=== PATIENT | female | born 1960 | race Caucasian/White ===

== ENCOUNTER → 2020-08-12 12:53 | Outpatient (CLI) | payer BC, SELFPAY ==
--- NOTE | ~2020-08-12 | DEXA_ITS ---
Bone Density Report Name: Oly Patiño Age: 59 Sex: Female Ethnicity: White Date of : 1960 Indication: postmenopausal; screening for osteoporosis; height loss; hysterectomy; Referring Provider: KIANA, AKSHAT Study: Bone densitometry was performed. Exam Date: August 12, 2020 Accession number: [id number] Bone Density: Region BMD T-score Z-score Classification Femoral Neck (Left) 0.543 -2.8 -1.5 Osteoporosis Total Hip (Left) 0.683 -2.1 -1.2 Osteopenia Femoral Neck (Right) 0.535 -2.8 -1.6 Osteoporosis Total Hip (Right) 0.680 -2.1 -1.3 Osteopenia Total Hip Mean 0.682 -2.1 -1.3 Osteopenia World Health Organization criteria for BMD impression classify patients as: Normal (T-score at or above -1.0), Osteopenia (T-score between -1.0 and -2.5), or Osteoporosis (T-score at or below -2.5). 10-year Fracture Risk: FRAX not reported because: Some T-score for Spine Total or Hip Total or Femoral Neck at or below -2.5 Clinical Information Provided by Patient: Smokes Has used the following medications: Vitamin D, Calcium, Levothyroxin Has the following medical conditions: Hysterectomy Patient maximum height was 64 Menopause Age: 36 Does not regularly consume dairy products Drinks caffeinated beverages Onset of menses at age 14 Number of children 2 Impression: The patient has osteoporosis, based on the Left Femoral Neck T-score. The patient has risk factors, including: smoking. Discussion: INCREASED RISK OF FRACTURE. BONE DENSITY IS UNDESIRABLY LOW AT ONE OR MORE SKELETAL SITES, CONSISTENT WITH POSTMENOPAUSAL OSTEOPOROSIS. This patient's lowest T-score meets the World Health Organization's (WHO) criteria for osteoporosis at one or more sites (T-score -2.5 or below). In untreated patients, the risk of osteoporotic fracture increases approximately two-fold for each 1.0 SD decrease in T-score. Low bone density is not the only risk factor for fracture; also consider factors such as patient's age, frailty or poor health, risk of falling, risk of injury, previous osteoporotic fracture, family history of osteoporosis, cigarette smoking, low body weight, etc. Not everyone with low bone mineral density has osteoporosis; osteomalacia and other metabolic bone disorders should also be considered. Patients who have osteoporosis should be evaluated for specific diseases and conditions (secondary causes) that may cause or contribute to bone loss. The [place] Association of Clinical Endocrinologists (AACE) and National Osteoporosis Foundation (NOF) recommend pharmacologic intervention for all postmenopausal women whose T-score is in this range. The patient should follow a healthful lifestyle (good nutrition with adequate calcium and vitamin D, and appropriate weight-bearing exercise). Follow-Up: Consider a repeat BMD and Vertebral Fracture
--- NOTE | ~2020-08-12 | MM_ITS ---
EXAMINATION: MM scrn jean claude implant BI w cortes HISTORY: Screening mammogram TECHNIQUE: Craniocaudal and mediolateral oblique 3-D tomosynthesis images with implant displacement a nd synthetic 2-D images were generated. Craniocaudal and mediolateral oblique views of the breasts wi thout implant displacement were obtained using full field digital mammography. CAD analysis was submi tted and interpreted. COMPARISON: Comparison to multiple prior studies sequentially, with oldest reviewed study dated 08/31. BREAST PARENCHYMAL COMPOSITION: There are scattered areas of fibroglandular density. FINDINGS: There are subpectoral saline implants. There is no evidence of suspicious mass, calcificati on, or architectural distortion to suggest malignancy in either breast. There has been no suspicious interval change. IMPRESSION: 1. No mammographic evidence of malignancy. 2. Recommend routine screening mammography in one year. BI-RADS Category 1: Negative Reviewed, dictated and finalized at location A.
== END ==
PROVIDERS: PCP Nurse Practitioner Family; Visit Provider Nurse Practitioner Family
DX: Z12.31 Encounter for screening mammogram for malignant neoplasm of breast (principal); Z78.0 Asymptomatic menopausal state; Z13.820 Encounter for screening for osteoporosis
CPT/HCPCS: 77063; 77067; 77080

== ENCOUNTER 2021-07-12 12:55 | Outpatient (CLI) | payer BC, SELFPAY ==
--- NOTE | ~2021-07-12 | CT_ITS ---
EXAMINATION: CT thoracic lumbar wo con EXAM DATE: 07/12/2021 13:23 . INDICATION: Failed back surgical syndrome, deformity, lbp, ankylosis TECHNIQUE: Spiral CT thoracolumbar spine was performed without contrast. Axial, coronal and sagittal images of the thoracic spine were reviewed. Axial, coronal and sagittal images of the lumbar spine we re reviewed. The dose-length product (DLP) for this examination was 475.81 mGy-cm. The exposure was tailored according to patient size (auto mA exposure control), and iterative reconstruction (ASIR) wa s used as additional dose reduction technique. Compared to prior study 08/11/1960 FINDINGS: Hardware: Patient has posterior fusion hardware with pedicular screws extending from T11 th rough the sacrum. There is interbody fusion L4-5 and L5-S1. No hardware fracture. Mild lucency surrou nding the sacroiliac joint screws. This could indicate some component of loosening but it is unchange d compared to 2016. No lucency surrounding any of the other screws. THORACIC SPINE: Severe disc disease T10-11, mild interval progression. There is kyphosis at the 10-1 1 level, with mild chronic anterior wedged appearance to the vertebral bodies/endplates of this disc space. Mild disc disease T8-T10 levels. There is 2 mm retrolisthesis T9 on T10. Moderate to severe f rom T7 through T11. Probably moderate to severe left neural foraminal stenosis at T8-9 and T9-10. LUMBAR SPINE: The lumbar facet posterior elements are fused. Spinous processes have been resected. Po sterior bone graft material. Metallic artifact limiting some soft tissue details, but no evidence of significant central canal or neural foraminal stenosis. There is no evidence of acute lumbar fracture . There is no disc space widening or traumatic vertebral body subluxation suspected. Paraspinal sof t tissue is unremarkable. Mild lumbar disc disease. IMPRESSION: 1. Intact fusion from T11 through sacroiliac joints. 2. Some chronic lucency along the sacroiliac screws could indicate some component of loosening, appe ars well seated. 3. Advanced T11-12 disc disease with mild anterior wedging of these vertebral bodies causing kyphosi s. 4. Advanced lower thoracic facet arthropathy. Reviewed, dictated and finalized at location B. IMPRESSION: 1. Intact fusion from T11 through sacroiliac joints. 2. Some chronic lucency along the sacroiliac screws could indicate some compon ent of loosening, appears well seated. 3. Advanced T11-12 disc disease with mild anterior wedging of these vertebral bodies causing kyphosis. 4. Advanced lower thoracic facet arthropathy.
== END 2021-07-12 12:56 | disposition home or self-care (01) ==
PROVIDERS: PCP Nurse Practitioner Family; Visit Provider Nurse Practitioner Family
DX: M43.24 Fusion of spine, thoracic region (principal); M54.6 Pain in thoracic spine; Z98.1 Arthrodesis status; M51.84 Other intervertebral disc disorders, thoracic region; M12.88 Other specific arthropathies, not elsewhere classified, other specified site
CPT/HCPCS: 72128; 72131

== ENCOUNTER 2022-12-08 07:48 | Outpatient (CLI) | payer BC, SELFPAY ==
--- NOTE | ~2022-12-08 | MM_ITS ---
EXAMINATION: MM scrn jean claude implant BI w cortes HISTORY: Screening mammogram TECHNIQUE: Craniocaudal and mediolateral oblique 3-D tomosynthesis images with implant displacement a nd synthetic 2-D images were generated. Craniocaudal and mediolateral oblique views of the breasts wi thout implant displacement were obtained using full field digital mammography. CAD analysis was submi tted and interpreted. COMPARISON: 08/12/2020, 05/14/2019, 07/21/2017 bilateral implant screening mammogram examinations BREAST PARENCHYMAL COMPOSITION: There are scattered areas of fibroglandular density. FINDINGS: There is no evidence of suspicious mass, calcification, or architectural distortion to sugg est malignancy in either breast. There has been no suspicious interval change. IMPRESSION: 1. No mammographic evidence of malignancy. 2. Recommend routine screening mammography in one year. BI-RADS Category 1: Negative Reviewed, dictated and finalized at location A. RACTIVE PRODUCER
== END 2022-12-08 07:49 | disposition home or self-care (01) ==
LOC: ANHIMG 07:51
PROVIDERS: PCP Nurse Practitioner Family; Visit Provider Nurse Practitioner Family
DX: Z12.31 Encounter for screening mammogram for malignant neoplasm of breast (principal); Z98.82 Breast implant status
CPT/HCPCS: 77063; 77067

== ENCOUNTER 2023-08-05 09:00 | Outpatient (CLI) | payer BC, SELFPAY ==
--- NOTE | 2023-08-05 10:11 | ECG_ITS ---
Measurements Intervals [place] Rate: 75 P: 60 [place]: 157 QRS: 42 QRSD: 100 T: 46 QT: 369 QTc: 412 Interpretive Statements SINUS RHYTHM NORMAL ECG NO PREVIOUS ECG AVAILABLE FOR COMPARISON Electronically Signed On 08-05-2023 12:31:14 CDT by Jere Jain M.D.
== END 2023-08-05 09:01 | disposition home or self-care (01) ==
LOC: ANHCARD 10:07
PROVIDERS: PCP Nurse Practitioner Family; Visit Provider Anesthesiology
DX: Z01.818 Encounter for other preprocedural examination (principal)
CPT/HCPCS: 93005

== ENCOUNTER 2023-08-11 05:50 | Day surgery (SDC) | payer OTHER, SELFPAY ==
--- NOTE | 2023-08-10 10:31 | WPDANESEPPF ---
Anes - Initial Pre Proc Eval Procedure: Operation Date: 08/11/23 11:45 Proposed Procedures p Bilateral Breast Implant Exchange with Galaflex - Sandeep Castellanos MD s Bilateral Breast Mastopexy - Sandeep Castellanos MD Date/Time: 08/10/23 10:31 Surgeon: Sandeep Castellanos MD Pre Op Diagnosis: History of Breast Augmentation and Breast Ptosis Patient Data Age: 62 Gender: F Height: 1.57 m Weight: 53.7 kg Allergies Allergy/AdvReac Type Severity Reaction Status Date / Time gluten Allergy Unknown Diarrhea Verified 08/11/23 10:41 KETOROLAC TROMETHAMINE Allergy Intermediate Itching Uncoded 08/11/23 10:41 Home Medications Medication Instructions Recorded Confirmed Type duloxetine 60 mg capsule,delayed 60 mg PO BID 02/27/20 08/11/23 History release (Cymbalta) gabapentin 800 mg tablet 800 mg PO TID 02/27/20 08/11/23 History levothyroxine 175 mcg tablet 175 mcg PO DAILY 02/27/20 08/11/23 History (Synthroid) albuterol sulfate 90 mcg/actuation 1 puff inhalation USEASDIRECTD 07/28/23 08/11/23 History aerosol inhaler baclofen 10 mg tablet 10 mg PO DIRECTED PRN Pain 07/28/23 08/11/23 History bupropion HCl 150 mg tablet,12 hr 150 mg PO DAILY 07/28/23 08/11/23 History sustained-release clonidine HCl 0.2 mg tablet 0.2 mg PO DAILY 07/28/23 08/11/23 History cyanocobalamin (vitamin B-12) 1 tablet PO DAILY 07/28/23 08/11/23 History cyclobenzaprine 10 mg tablet 10 mg PO USEASDIRECTD PRN Pain 07/28/23 08/11/23 History methocarbamol 500 mg tablet 500 mg PO USEASDIRECTD PRN Pain 07/28/23 08/11/23 History prazosin 1 mg capsule 1 mg PO HS Nightmares 07/28/23 08/11/23 History sumatriptan succinate 100 mg tablet 100 mg PO DIRECTED PRN Migraine 07/28/23 08/11/23 History Headache temazepam 30 mg capsule 30 mg PO USEASDIRECTD PRN Insomnia 07/28/23 08/11/23 History tramadol 100 mg tablet 100 mg PO BID PRN Pain 07/28/23 08/11/23 History trazodone 100 mg tablet 100 mg PO USEASDIRECTD PRN Insomnia 07/28/23 08/11/23 History Patient hx anesthesia problems: none Family hx anesthesia problems: none Results Review: All pre-operative results and documents have been reviewed as part of the pre-operative evaluation. [facility] Past Medical History Medical History (Updated 08/10/23 @ 10:31 by Percy Thapa DO) Anxiety Asthma Hypertension Hypothyroidism MVP (mitral valve prolapse) Surgical History Surgical History (Updated 08/10/23 @ 10:31 by Percy Thapa DO) History of History of hysterectomy Family History Family History Mother Hypertension Family history of elevated blood lipids Family history of coronary artery disease Family history of malignant neoplasm Patient's mother is Family history of cardiovascular disease Father Patient's father is Family history of primary malignant neoplasm of liver Sibling Patient's sister is in good health Patient's brother is in good health Grandparent Family history of cardiovascular disease Cerebrovascular accident Social History Social History Smoking status: Former smoker Second hand tobacco smoke exposure: Yes Smoking end date: 10/30/09 Additional smoking assessment comments: quit 9 weeks ago, smoked 1 ppd for 11 years Alcohol intake: never Substance use type: does not use Living arrangements: with family Spiritual care concerns: No Anes - Eval Final PreProcedure Day of Procedure 08/10/23 10:31 Patient weight: normal Heart: regular rate and rhythm Lungs: clear to auscultation Airway: Mallampati scale class II Neurological: alert and oriented Last oral intake: >/= 8 hours ASA classification: III Emergent: no Anesthetic plan: proceed Anesthesia type and monitoring: general ETT and standard monitoring Results Review: All pre-operative results and documents have been reviewed as part of
[2023-08-11] VITALS (12 sets, daily range): BP systolic 102–144; BP diastolic 61–85; PULSE 80–102; RESP 16–19; TEMP 36.6–37; O2SAT 94–100
[2023-08-11] MEDS: SCOPOLAMINE 1.5 MG PATCH 1 MG TRANSDERM (11:03)
[2023-08-11] MEDS: LACTATED RINGERS 1,000 ML 30 ML IV CONT ×2 (11:25→14:57)
--- NOTE | 2023-08-11 11:43 | WPDHPUPDATE1 ---
History and Physical Update Update Date/Time: 08/11/23 11:43 History and Physical has been reviewed, including an updated exam of the patient. There are NO changes in the patient's condition. Risks, benefits, and alternatives have been discussed and questions answered. Patient agrees to proceed with procedure.
--- NOTE | 2023-08-11 11:46 | SUR.PREOP ---
Pt marked by Dr. Castellanos, female staff member present during marking
--- NOTE | 2023-08-11 11:47 | SUR.PREOP ---
500cc fluid bolus given in pre-op per Dr. Castellanos's orders.
--- NOTE | 2023-08-11 11:47 | W.PM.PROC2 ---
Procedure Note - Detailed Date of Procedure 08/11/23 Pre-op Diagnosis History of Breast Augmentation and Breast Ptosis Post-op Diagnosis Same Procedure Performed Bilateral implant exchange with mastopexy Galaflex Surgeon Sandeep Castellanos MD Anesthesia General Findings Superior pedicle Inverted T Previous implants: Bilateral textured saline 375 New Implants: Bilateral Natrelle Saline 350cc filled to 370cc Right - REF# [id number] SN [id number] Left - REF# [id number] SN [id number] Galaflex Ref [id number] Lot [id number] Description of Procedure She is here today for the above. Her left breast implant is ruptured. She states her NAC was fairly symmetric before rupture. We discussed sizing and how she would like to adjust. Previously and again today the risks, benefits, alternatives were discussed in extensive detail. I wanted her to be very realistic about the risks involved as well as expectations. I was very honest that we are moving breast onto the implant and we are not able to elevate the breast footprint. This was outlined extensivly with her and her to make sure she was well informed. We discussed aftercare and what to monitor for. Made sure answered all of her questions to her satisfaction today and consent was obtained. Marked in the preoperative holding area with their verification. The patient was taken to the operating room placed supine on the operating table. Anesthesia was provided by anesthesiology. A surgical time-out was taken. We cleansed the skin and 1% lidocaine and 0.25% Marcaine with epinephrine was used anesthetize as a field block. She was prepped and draped in a standard sterile fashion. Tegaderm nipple Harrell were placed. A 15 blade used to make an incision just superior to the inframammary fold leaving a cusp of de-epithelized tissue at the t junction. Dissection was continued until the previous implant capsule was identified. This was incised and implants removed. Copiously irrigated with 3 Liters of saline solution on TUR tubing. I adjusted capsules with capsulotomy and capsulorraphy as indicated. Next the use a triple antibiotic and Betadine containing solution to irrigate the pocket. I washed my gloves with the triple antibiotic and Betadine solution. We washed the implant immediately upon opening it with this solution and only opened it when we needed it. I used implant funnel and no-touch technique. The implant was introduced into the pocket using the funnel. Having verified positioning of the implant this was closed using 2-0 PDS. I tailor tacked the breast into position. Placed her in a sitting position. Verified the nipple-areolar location based on preoperative planning as well as intraoperative observations and measurements in full agreement. She was placed supine. I de-epithelialized the pedicle. I then removed the inferior central portion of the breast need making sure the implant was well protected. I elevated medial and lateral tissue flaps as well for planned closure. Galaflex was soaking in betadine solution. Trimmed and sutured into place with 2-0 Vicryl. I closed along the IMF with 2-0 Stratafix. Along the vertical with 2-0 PDS. I closed around the areola with 3-0 strata fix. 3-0 Monocryl along the vertical. 3-0 Stratafix along the IMF. I finally closed everything with running subcuticular 4-0 Monocryl and tissue glue. Fluffs and surgical bra were placed. Estimated Blood Loss 150 Drains No Packing No Pathology None sent Complications No immediate complications Condition Stable Disposition PACU
[2023-08-11] MEDS: ceFAZolin SODIUM 2 GM/20 ML SW SYRINGE IV PUSH (11:55)
[2023-08-11] MEDS: TRANEXAMIC ACID 1,000 MG/10 ML AMPUL 1000 MG IV PUSH (11:55)
[2023-08-11] MEDS: LIDO 1%/EPINEPHRINE/PF 1:200,000 30 ML VIAL INFILTRATE (12:04)
[2023-08-11] MEDS: NACL 0.9% IRRIG POUR BOTTLE 900 ML, GENTAMICIN SULFATE INJ 160 MG, ceFAZolin 2 GM, POVI... IRRIGATION (12:34)
--- NOTE | 2023-08-11 15:06 | SUR.PHASEI ---
1440 patient arrived to PACU very restless trying to sit up and legs tucked, anesthesia at bedside giving report and treating patient for pain. small amount of blood noted on left corner of mouth. reported that patient bite down on the oral airway/lip before coming to PACU. small amount of drainage noted on left breast and circled, will continue to monitor. vss
[2023-08-11] MEDS: fentaNYL CITRATE INJ (*CRX) 100 MCG/2 ML VIAL 25 MCG IV PUSH ×4 (15:21→15:43)
[2023-08-11] MEDS: oxyCODONE HCL (*CRX) 5 MG TAB IR PO (16:04)
--- NOTE | 2023-08-11 16:36 | WPDANESPN ---
Anes - Prog Note Post-Op Date/Time: 08/11/23 16:36 Cardiovascular status: normal Respiratory status: normal Airway patency: baseline Mental status: baseline Post-Op hydration status: normal Vital Signs: Last Vital Signs Temp 37.0 C 08/11/23 15:50 Pulse 91 08/11/23 16:20 Resp 16 08/11/23 16:20 BP 144/70 H 08/11/23 16:20 Pulse Ox 96 08/11/23 16:20 O2 Del Method Room Air 08/11/23 16:20 O2 Flow Rate 6 08/11/23 15:00 Pain Score (VAS): 2 I/O: Intake & Output 08/11/23 08/11/23 08/11/23 07:59 15:59 23:59 Intake Total 1400 Balance 1400 Post-procedural complaints: none Patient Feedback: Patient satisfied with anesthetic care. Other Findings: Patient vital signs back to baseline. Patient denies nausea and vomiting. Patient's pain under control. Patient OK for discharge.
== END 2023-08-11 16:30 | disposition home or self-care (01) ==
PROVIDERS: PCP Nurse Practitioner Family; Visit Provider Surgery Plastic and Reconstructive Surgery
PROC: (CPT 19342; principal; 2023-08-11 11:45)
PROC: (CPT 19316; 2023-08-11 11:45)
DX: Z41.1 Encounter for cosmetic surgery (principal); N64.81 Ptosis of breast
CPT/HCPCS: 19342

== ENCOUNTER 2023-12-17 08:36 | Outpatient (CLI) | payer BC, SELFPAY ==
--- NOTE | ~2023-12-17 | MR_ITS ---
MRI of the thoracic spine Clinical History: Pain Technique: Axial T2-weighted and gradient images, and sagittal T1-weighted, T2-weighted, and STIR julian ges were acquired. COMPARISON: CT scan dated 07/12/2021 Findings: There is posterior fusion hardware extending from T11 through the visualized lumbar spine, unchanged. There is chronic anterior wedging deformity of T10, unchanged. There is extensive marrow e elvira in the T9 and T10 vertebral bodies, probably related to underlying severe degenerative disc lowery ge at T9-T10. There is additional severe degenerative disc narrowing at T10-T11. Remaining visualized intervertebral disc spaces are relatively well-preserved. There is disc osteophyte complex at T9-T10, resulting in probable mild canal stenosis but no stephan co rd compression. No other significant disc bulge or herniation evident in the thoracic spine. No other spinal canal stenosis or cord compression identified. There is probable severe bilateral neural fora nixon narrowing at T9-T10 and T10-T11. Paravertebral soft tissues are unremarkable. Impression: Severe degenerative disc change at T9-T10 and T10-T11, probable extensive reactive marrow edema in th e T9 and T10 vertebral bodies. Chronic anterior wedging deformity of T10, stable since 2020. Probable mild canal stenosis at T9-T10 without stephan cord compression, with severe neural foraminal n arrowing bilaterally at this level and at T10 and T11.. Posterior fusion from T11 through the visualized lumbar spine, unchanged. Reviewed, dictated and finalized at [facility]. PRESS SETTER Impression: Severe degenerative disc change at T9-T10 and T10-T11, probable extensive react kaitlyn marrow edema in the T9 and T10 vertebral bodies. Chronic anterior wedging deformity of T10, stable since 2020. Probable mild canal stenosis at T9-T10 without stephan cord compression, with sev ere neural foraminal narrowing bilaterally at this level and at T10 and T11.. Posterior fusion from T11 through the visualized lumbar spine, unchanged.
--- NOTE | ~2023-12-17 | MR_ITS ---
MRI of the cervical spine Clinical History: Pain Technique: Axial T2-weighted and gradient images, and sagittal T1-weighted, T2-weighted, and STIR julian ges were acquired. Findings: No acute fracture evident. There is minimal grade 1 anterolisthesis of C4 over C5. There is minimal grade 1 retrolisthesis of C5 over C6. There is severe degenerative disc change at C5-C6. No suspicious marrow signal abnormality seen. At C2-C3, there is no disc bulge or herniation. No spinal canal stenosis, cord compression, or neural foraminal narrowing. At C3-C4, there is no disc bulge or herniation. No spinal canal stenosis, cord compression, or neural foraminal narrowing. At C4-C5, there is minimal disc osteophyte complex, without stephan canal stenosis or cord compression. There is mild right neural foraminal narrowing with right facet arthropathy. Left neural foramen pro bably preserved. At C5-C6, there is mild canal stenosis without stephan cord compression. There is probable left neural foraminal narrowing, and questionable minimal right neural foraminal narrowing. At C6-C7, there is no significant disc bulge or herniation. No spinal canal stenosis or cord compress ion. Possible minimal bilateral neural foraminal narrowing. No abnormal signal seen in the spinal cord. Paravertebral soft tissues are unremarkable. Impression: Mild degenerative spondylosis overall, as detailed above. Minimal grade 1 anterolisthesis of C4 over C5. Minimal grade 1 retrolisthesis of C5 over C6. Severe degenerative disc narrowing at C5-C6. Reviewed, dictated and finalized at [facility]. CIATE PROFESSOR OF MUSIC Impression: Mild degenerative spondylosis overall, as detailed above. Minimal grade 1 anterolisthesis of C4 over C5. Minimal grade 1 retrolisthesis of C5 over C6. Severe degenerative disc narrowing at C5-C6.
--- NOTE | ~2023-12-17 | MR_ITS ---
MRI of the lumbar spine Clinical History: Pain Technique: Axial T2-weighted images, and sagittal T1-weighted, T2-weighted, and STIR images were acqu ired. Findings: There is posterior fusion hardware extending from T11 through S1, bilateral rods and transp edicular screws present. There is probable posterior decompression L4 and L5. Interbody disc fusion c ages are present at L4-L5 and L5-S1. Remaining intervertebral discs are relatively well-preserved. No suspicious bone marrow signal abnormality seen. No acute fracture or subluxation seen. No significant disc bulge or herniation seen at any lumbar level. No spinal canal stenosis seen in th e lumbar spine. Neural foramina appear well preserved throughout the lumbar spine. Paravertebral soft tissues are unremarkable aside from expected postoperative change. Impression: Posterior fusion from T11 through S1, with disc fusion at L4-L5 and L5-S1. Reviewed, dictated and finalized at [facility]. ECT MANAGEMENT CONSULTANT Impression: Posterior fusion from T11 through S1, with disc fusion at L4-L5 and L5-S1.
== END 2023-12-17 08:37 | disposition home or self-care (01) ==
PROVIDERS: PCP Nurse Practitioner Family; Visit Provider Nurse Practitioner Family
DX: Q76.49 Other congenital malformations of spine, not associated with scoliosis (principal); M96.1 Postlaminectomy syndrome, not elsewhere classified; Z98.1 Arthrodesis status; M51.34 Other intervertebral disc degeneration, thoracic region; M47.892 Other spondylosis, cervical region
CPT/HCPCS: 72141; 72146; 72148

== ENCOUNTER 2025-01-02 08:32 | Emergency (ER) | payer BC, SELFPAY ==
--- NOTE | ~2025-01-02 | XR_ITS ---
CHEST RADIOGRAPH, PA AND LATERAL CLINICAL HISTORY: sob, CHEST TIGHTNESS . COMPARISON: 06/04/2014. Reference is also made to a CT examination of the thoracic spine TECHNIQUE: PA and lateral views of the chest. FINDINGS The cardiomediastinal silhouette is unremarkable. Hyperexpansion is present. The lungs are clear. Osseous change above the fixation hardware within the lower thoracic spine. IMPRESSION: Hyperexpansion, without focal infiltrate or effusion. Reviewed, dictated and finalized at location A. AL SERVICES DESIGNEE
--- NOTE | ~2025-01-02 | CT_ITS ---
EXAMINATION: CTA chest PE protocol DATE: 01/02/2025 09:54 INDICATION: Left-sided chest pain. Shortness of breath. TECHNIQUE: Computed tomography (CT) pulmonary angiogram of the chest was performed with 100 mL Omnipa que-350 intravenous contrast. Additional 3D reconstructions utilizing coronal maximum intensity proje ction (MIP) were performed. Automated exposure control and iterative reconstruction technique were em ployed. The dose-length product was 141.02 mGy-cm. COMPARISON: 02/28/2011 FINDINGS: No pulmonary embolism. Mild discoid atelectasis in the right lower lobe and in the posterior right up per lobe no pneumonia, pulmonary edema, pleural effusion or pneumothorax. Heart size is normal. No pe ricardial effusion. Thoracic aorta is normal in caliber with no dissection. No pathologically enlarge d thoracic lymphadenopathy. Bilateral breast implants. Visualized upper abdomen is unremarkable altho ugh evaluation is mildly limited by metallic streak artifact from posterior spinal fusion with bilate ral vertical tony and pedicle screw fixation beginning at T11 and extending S1 on the returning officer topogram w ith additional bone graft cages for anterior spinal fusion at L4-L5 and L5-S1. Lower thoracic kyphosi s with anterior disc height loss at T10 and T11 which could be due to compression fractures or second kiera to the severe disc height loss with prominent degenerative endplate changes and remodeling at bot h T9-T10 and T10-T11. IMPRESSION: 1. Mild discoid atelectasis in the right upper and lower lobes. No pulmonary embolism or other acute cardiopulmonary disease. Reviewed, dictated and finalized at location L. LESOFT ANALYST IMPRESSION: 1. Mild discoid atelectasis in the right upper and lower lobes. No pulmonary em bolism or other acute cardiopulmonary disease.
--- NOTE | 2025-01-02 08:45 | ECG_ITS ---
Test Date: 2025-01-02 09:11:38 Measurements Intervals [place] Rate: 72 P: 71 ND: 149 QRS: 52 QRSD: 93 T: 57 QT: 376 QTc: 412 Interpretive Statements SINUS RHYTHM No previous ECG available for comparison Electronically Signed On 01-02-2025 14:01:55 SENIOR PREMIUM AUDITOR by Devin Marquez M.D.
[2025-01-02 08:47] VITALS: BP 126/87; PULSE 86; RESP 20; TEMP 36.6; O2SAT 99
--- OUTSIDE RECORDS SUMMARY | 2025-01-02 08:51 | XMS_ITS | Encounter Summary ---
Author Organization [facility] Address 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
--- OUTSIDE RECORDS SUMMARY | 2025-01-02 08:51 | XMS_ITS | Encounter Summary ---
Author Organization [facility] Address 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
--- OUTSIDE RECORDS SUMMARY | 2025-01-02 08:51 | XMS_ITS | Encounter Summary ---
Author Organization [facility] Address 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
--- OUTSIDE RECORDS SUMMARY | 2025-01-02 08:51 | XMS_ITS | Encounter Summary ---
Author Organization [facility] Address [address] [place] [address] Care Team Providers Care Front Office Supervisor Name Role Phone Unavailable Primary Care Provider Unavailabl e Encounter Details Date Type Department Care Team (Late st Contact Info) Description 01/21/2003 Outpatient Historical [facility] [address] [facility] [address] [place] [address] Campos Caba (Two) Social History Tobacco Use Types Packs/Day Years Used Date Smoking Tobacco: Never Assessed Comments Unknown Sex and Gender Information Value Date Recorded Sex Assigned at Not on file Legal Sex Female 3:16 AM MESSENGER OFFICE Gender Identity Not on file Sexual Orientation Not on file documented as of this encounter Plan of Treatment Not on file documented as of this encounter Visit Diagnoses Not on filedocumented in this encounter
--- OUTSIDE RECORDS SUMMARY | 2025-01-02 08:51 | XMS_ITS | Clinical Summary ---
Author Organization [facility] Address [address] [place], [address] [address] Phone Care Team Providers Care Back Tender Fourdrinier Name Role Phone Merle Raymundo APRN, DELIMER Primary Care Provider Allergies No known active allergies Medications cloNIDine (CATAPRES) 0.1 MG Tablet Take 0.1 mg by mouth daily. Active gabapentin (NEURONTIN) 800 MG Tablet Take 800 mg by mouth 3 times daily. Active levothyroxine (SYNTHROID) 175 MCG Tablet Take 175 mcg by mouth every morning. Active DULoxetine HCl (CYMBALTA PO) Take 60 mg by mouth every morning. Active Cyanocobalamin (VITAMIN B-12 PO) Take by mouth every morning. Active Cholecalciferol (VITAMIN D-3 PO) Take by mouth every morning. Active VITAMIN E PO Take by mouth every morning. Active Family History Medical History Relation Name Comments Cancer Father Liver Heart Disease Mother Relation Name Status Comments Father Mother Social History Tobacco Use Types Packs/Day Years Used Date Smoking Tobacco: Every Day Cigarettes 1 12 Smokeless Tobacco: Never Tobacco Cessation:Ready to Q uit: No; Counseling Given: Yes Alcohol Use Standard Drinks/Week Comments Not Currently 0 (1 standard drink = 0.6 oz pur e alcohol) Comments Unknown Sex and Gender Information Value Date Recorded Sex Assigned at Not on file Legal Sex Female 9:10 PM CDT Gender Identity Not on file Sexual Orientation Not on file Last Filed Vital Signs Vital Sign Reading Time Taken Comments Blood Pressure 96/67 03/31/2020 9:35 AM CDT Pulse 90 03/31/2020 9:35 AM CDT Temperature 36 C (96.8 F) 03/31/2020 9:35 AM CDT Respiratory Rate 20 03/31/2020 9:35 AM CDT Oxygen Saturation 99% 03/31/2020 9:35 AM CDT Inhaled Oxygen Concentration - - Weight 58.1 kg (128 lb) 03/17/2020 1:00 PM CDT Height 160 cm (5' 3 ) 03/17/2020 1:00 PM CDT Body Mass Index 22.67 03/17/2020 1:00 PM CDT Plan of Treatment Health Maintenance Due Date Last Done Comments Hepatitis C Virus (HCV) Screening 1960 Cologuard 2011 Immunochemical Fecal Occult Blood 2011 Mammogram 2011 Pneumococcal Immunization (5 0+ years) (2 of 2 - PCV) 09/10/2020 09/10/2019 Influenza Immunization (#1) 06/30/202407/31, 11/02/2016 SARS-COV-2 Immunization ( season) 2024 08/14/2021, 01/23/2021, 12/29/2020 Colonoscopy 03/31/2027 03/31/2020, 09/27/2017 Colorectal Cancer Screening 03/31/2027 Respiratory Syncytial Virus (RSV) Immunization (Adult) (1 - 1-dose 75+ series) 2036 03/31/2020, 09/27/2017 DTaP/Tdap/Td Immunization Discontinued 06/19/2019 TdaP Immunization Completed 06/19/2019 Pneumococcal Immunization Combined Discontinued 09/10/2019 Zoster Immunization Completed 09/19/2020, 09/25/2019 Hepatitis B Immunization Aged Out No longer eligible based on patient's age to complete this topic Meningococcal Immunization (ACWY) Aged Out No longer eligible based on patient's age to complete this topic Rotavirus Immunization Aged Out No lo nger eligible based on patient's age to complete this topic Procedures Procedure Name Priority Date/Time Associated Diagnosis Comments HM COLONOSCOPY Routine 09/27/2017 from Last 3 Months or Most Recently Relevant to Health Maintenance Results * HM COLONOSCOPY (09/27/2017) us Not On File Provider PROCEDURE/MINOR SURGICAL OR DERABLES Final Result from Last 3 Months or Most Recently Relevant to Health Maintenance Insurance [facility] Care Teams Back Tender Fourdrinier Relationship Specialty Start Date End Date Merle Raymundo APRN, DELIMER [address] [place] [id number] PCP - General Internal Medicine 11/08/16
--- OUTSIDE RECORDS SUMMARY | 2025-01-02 08:51 | XMS_ITS | Encounter Summary ---
Author Organization [facility] Address [address] [place] [address] Care Team Providers Care Metal Cut Off Saw Operator Name Role Phone Unavailable Primary Care Provider Unavailabl e Encounter Details Date Type Department Care Team (Late st Contact Info) Description 03/14/2005 Outpatient Historical [facility] [address] [facility] [address] [place] [address] Campos Caba (Two) Social History Tobacco Use Types Packs/Day Years Used Date Smoking Tobacco: Never Assessed Comments Unknown Sex and Gender Information Value Date Recorded Sex Assigned at Not on file Legal Sex Female 3:16 AM 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
--- OUTSIDE RECORDS SUMMARY | 2025-01-02 08:51 | XMS_ITS | Encounter Summary ---
Author Organization [facility] Address [address] [place] [address] Care Team Providers Care Internet Media Planner Name Role Phone Unavailable Primary Care Provider Unavailabl e Encounter Details Date Type Department Care Team (Late st Contact Info) Description 10/06/2000 Outpatient Historical [facility] [address] [facility] [address] [place] [address] Campos Caba (Two) Social History Tobacco Use Types Packs/Day Years Used Date Smoking Tobacco: Never Assessed Comments Unknown Sex and Gender Information Value Date Recorded Sex Assigned at Not on file Legal Sex Female 3:16 AM LADLE WATCHER Gender Identity Not on file Sexual Orientation Not on file documented as of this encounter Plan of Treatment Not on file documented as of this encounter Visit Diagnoses Not on filedocumented in this encounter
--- OUTSIDE RECORDS SUMMARY | 2025-01-02 08:51 | XMS_ITS | Encounter Summary ---
Author Organization [facility] Address [address] [place] [address] Care Team Providers Care Portable Pinch Riveter Name Role Phone Unavailable Primary Care Provider Unavailabl e Encounter Details Date Type Department Care Team (Late st Contact Info) Description 05/24/1999 Outpatient Historical [facility] [address] [facility] [address] [place] [address] Campos Caba (Two) Social History Tobacco Use Types Packs/Day Years Used Date Smoking Tobacco: Never Assessed Comments Unknown Sex and Gender Information Value Date Recorded Sex Assigned at Not on file Legal Sex Female 3:16 AM LIABILITY CLAIMS ADJUSTER Gender Identity Not on file Sexual Orientation Not on file documented as of this encounter Plan of Treatment Not on file documented as of this encounter Visit Diagnoses Not on filedocumented in this encounter
--- OUTSIDE RECORDS SUMMARY | 2025-01-02 08:51 | XMS_ITS | Encounter Summary ---
Author Organization [facility] Address [address] [place] [address] Care Team Providers Care Patient Care Provider Name Role Phone Unavailable Primary Care Provider Unavailabl e Encounter Details Date Type Department Care Team (Late st Contact Info) Description 11/08/2002 Outpatient Historical [facility] [address] [facility] [address] [place] [address] Campos Caba (Two) Social History Tobacco Use Types Packs/Day Years Used Date Smoking Tobacco: Never Assessed Comments Unknown Sex and Gender Information Value Date Recorded Sex Assigned at Not on file Legal Sex Female 3:16 AM JEWELRY MODEL MAKER Gender Identity Not on file Sexual Orientation Not on file documented as of this encounter Plan of Treatment Not on file documented as of this encounter Visit Diagnoses Not on filedocumented in this encounter
--- OUTSIDE RECORDS SUMMARY | 2025-01-02 08:52 | XMS_ITS | Patient Health Record ---
Author Organization [facility] Address [address] [facility] [address] [place], [place] [address] Care Team Providers Care Mold Changer Name Role Phone JEANETTE ROJAS MD Primary Care Provider Unavaila Khushi Bhat Unavailable [phone] REASON FOR REFERRAL No Information PLAN OF TREATMENT No Information Insurance Providers Payer Name Payer Address Payer Phone Subscriber Number Group Number Insured Name Patient Relationship to Insured Coverage Start Date Coverage End Date [facility] [address] [place] [id number] Oly Patiño Self - patient is the insured 2008
--- OUTSIDE RECORDS SUMMARY | 2025-01-02 08:52 | XMS_ITS | Clinical Summary ---
Author Organization [facility] Address [address] [place] [address] Care Team Providers Care Clinical Research Assistant Name Role Phone Unavailable Primary Care Provider Unavailabl e Medications levothyroxine (SYNTHROID) 125 mcg Oral tablet Take 1 Tab by mouth daily. Active CITALOPRAM HYDROBROMIDE (CELEXA ORAL) Take 1 Tab by mouth. Active gabapentin (NEURONTIN) 800 mg Oral tablet Take 1 Tab by mouth 4 times daily. Active tramadol SR 24 hour (ULTRAM ER) 100 mg Oral tablet Take 1 Tab by mouth daily. 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
--- OUTSIDE RECORDS SUMMARY | 2025-01-02 08:52 | XMS_ITS | Encounter Summary ---
Author Organization [facility] Address [address] [place] [address] Care Team Providers Care Conference Specialist Name Role Phone Unavailable Primary Care Provider Unavailabl e Encounter Details Date Type Department Care Team (Late st Contact Info) Description 07/11/2000 Outpatient Historical [facility] [address] [facility] [address] [place] [address] Campos Caba (Two) Social History Tobacco Use Types Packs/Day Years Used Date Smoking Tobacco: Never Assessed Comments Unknown Sex and Gender Information Value Date Recorded Sex Assigned at Not on file Legal Sex Female 3:16 AM SALES REPRESENTATIVE HEALTH INSURANCE Gender Identity Not on file Sexual Orientation Not on file documented as of this encounter Plan of Treatment Not on file documented as of this encounter Visit Diagnoses Not on filedocumented in this encounter
--- OUTSIDE RECORDS SUMMARY | 2025-01-02 08:52 | XMS_ITS ---
Author Organization [facility] Address [address] [place], [place] [address] Care Team Providers Care Nailhead Operator Name Role Phone Merle Raymundo Unavailable Unavailable [address] Unavailable [phone] Allergies No Known Allergies REASON FOR VISIT The patient has fungal toenails for awhile, but this past year she had decided to treat it. She used topical antifungal but it did not help. The nails feel like pressure and itch Vital Signs Height 60 in 01/15/2024 Weight 110 lbs 01/15/2024 BMI 21.48 kg/m2 01/15/2024 Height-cm 152.4 cm 01/15/2024 Weight-kg 49.9 kg 01/15/2024 Encounters Encounter Location Date Provider Diagnosis [facility] [place] [address] [place], [place] [id number] 01/15/[address] Tinea unguium B35.1 ; Pain in right toe(s) M79.674 and Pain in left toe(s) M79.675 Assessments Encounter Date Diagnosis (ICD Code) Assessment Notes Treatment Notes Treatment Clinical Notes Section Notes 01/15/2024 Tinea unguium (ICD-10 - B35.1) FUNGAL TOENAILS: Discussed various treatment options for fungal toenails including debridement, topical antifungals, oral antifungals, toenail avulsion, or toenail matrixectomy. Lamisil Initial Treatment: Order Liver Function tests prior to course of oral Lamisil. If the LFTS are within normal limits, order 6 weeks of Lamisil. Liver Function Test will be repeated after 6 weeks prior to final dose for a total of 12 weeks of therapy. 01/15/2024 Pain in right toe(s) (ICD-10 - M79.674) 01/15/2024 Pain in left toe(s) (ICD-10 - M79.675) Plan Of Treatment Treatment Notes Assessment Notes Tinea unguium FUNGAL TOENAILS: Discussed various treatment options for fungal toenails including debridement, topical antifungals, oral antifungals, toenail avulsion, or toenail matrixectomy. Lamisil Initial Treatment: Order Liver Function tests prior to course of oral Lamisil. If the LFTS are within normal limits, order 6 weeks of Lamisil. Liver Function Test will be repeated after 6 weeks prior to final dose for a total of 12 weeks of therapy. Pending Test Test Name Order Date Liver Function Test (LFT) 01/15/2024 Next Appt Details Follow Up: 5 weeks, Reason: See how oral lamisil is tolerated. Repeat LFTs Progress Notes * Lucia PATIÑOOB: 2 (63 yo F)Acc No.[id number]:01/15/2024 Progress Notes Patient: Oly ALEXANDER Provider: Roxanna Street DPM :1960 A ge:63 Y S ex:Female Date:01/15/2024 Address:[address] [place] [address] Subjective: * Chief Complaints: * 1 . The patient has fungal toenails for awhile, but this past year she had decided to treat it. She used topical antifungal but it did not help. The nails feel like pressure and itch. * HPI: H PI: New Complaint P atient presents for a new patient consultation., P atient complains of an issue to bilateral great toes - toenail fungus, Duration of problem is a year., MA: LB. * ROS: G eneral / Constitutional: Patient denies c hills, fever, weakness, night sweats. M usculoskeletal: Patient denies c hildhood foot problems, weakness. ? P eripheral Vascular: Patient denies u lceration of feet, cold extremities. ? S kin: Patient denies u lcerations, discoloration. P atient complains of n ail changes, fungal nails. N eurologic: Patient denies b alance difficulty, confusion, difficulty speaking, dizziness. * Medical History: F ibromyalgia, Neuropathy, Arthritis, Thyroid Disease, Back Trouble. * Surgical History: H ysterectomy , bunionectomy . * Allergies: N .K.D.A. Objective: * Vitals: S hoe Size: 6, Wt:110lbs, Wt-k.9 kg, Ht: 60 in, Ht-cm: 152.4 cm, BMI:21.48Index, Body Surface Area: 1.45. * Examination: C onstitutional: Constitutional T he patient is awake, alert, well developed, well groomed and well nourished.. D ermatologic: Skin findings: S kin is warm, dry, supple with no breaks in the skin.. Nail pathology: N ails 1-5 bilateral are elongated, thick, discolored, and dystrophic with subungual debris. They are painful to palpation. ? V ascular: Dorsalis pedis pulse: 2 /4, bilateral. Posterior tibial pulse: 2 /4, bilaterally. Capillary refill: l ess than 3 seconds. Edema: N o edema, bilateral. N eurologic: Gross sensation G ross sensation is intact to light touch..? M usculoskeletal: Muscle Strength M uscle strength is 5/5 in regards to dorsiflexion, plantarflexion, inversion, and eversion in bilateral lower extremities.. ? Assessment: * Assessment: 1. T inea unguium - B35.1 (Primary) 2 . P ain in right toe(s) - M79.674 3 . P ain in left toe(s) - M79.675 Plan: * Treatment: * Follow Up: 5 weeks (Reason: See how oral lamisil is tolerated. Repeat LFTs) * Billing Information: * Visit Code: 33357 Office Visit, New Pt., Level 3. * Procedure Codes: * Sign off status: Completed true * Provider: Roxanna Street DPM Date: 0 01/15/2024 Generated for Gabrielle peters/Yvon/eTransmitting on: 0 01/02/2025 08:52 AM BONBON DIPPER History and Physical Notes * HPI (History of Present Illness) Category Sub-Category Detail Notes Category Not es HPI New Complaint Patient presents for a new patient consultation., Patient complains of an issue to bilateral great toes - toenail fungus, Duration of problem is a year., MA: LB Examination Category Sub-Category Detail Notes Category Not es Dermatologic Skin findings: Skin is warm, dr y, supple with no breaks in the skin. Nail pathology: Nails 1-5 bilateral are elongated, thick, discolored, and dystrophic with subungual debris. They are painful to palpation Neurologic Gross sensation Gross sensation is intact to light touch. Vascular Dorsalis pedis pulse: 2/4, bilateral Edema: No edema, bilateral Capillary refill: less than 3 seconds Posterior tibial pulse: 2/4, bilaterally Musculoskeletal Muscle Strength Muscle strength is 5/5 in regards to dorsiflexion, plantarflexion, inversion, and eversion in bilateral lower extremities. Constitutional Constitutional The patient is a wake, alert, well developed, well groomed and well nourished.
--- OUTSIDE RECORDS SUMMARY | 2025-01-02 08:53 | XMS_ITS ---
Author Organization [facility] Address [address] [place], [place] [id number] Care Team Providers Care Drift Miner Name Role Phone Merle Raymundo Unavailable Unavailable [address] Unavailable [phone] REASON FOR VISIT *Fungal nail check Encounters Encounter Location Date Provider Diagnosis [facility] [place] [address] [facility] [address] [place], [place] [id number] 02/19/[address] Plan Of Treatment No Information Progress Notes * Lucia PATIÑOOB: 2 (64 yo F)Acc No.[id number]:02/19/2024 Patient: Oly ALEXANDER Provider: Roxanna Street DPM :1960 A ge:63 Y S ex:Female Date:02/19/2024 Address:[address] [place], [place] [phone] Subjective: * Chief Complaints: * 1 . *Fungal nail check. * Medical History: Objective: * Vitals: Assessment: Plan: * Treatment: * Billing Information: * Visit Code: * Procedure Codes: * Electronic signature of TASHIA STREET DPM on 01/02/2025 at 08:52 AM DATA ENTRY COORDINATOR Sign off status: Pending * Provider: Roxanna Street DPM Date: 02/19/2024 Generated for Printi ng/Faxing/eTransmitting on: 0 01/02/2025 08:52 AM DATA ENTRY COORDINATOR
--- OUTSIDE RECORDS SUMMARY | 2025-01-02 08:53 | XMS_ITS | Patient Health Record ---
Author Organization [facility] Address [address] [place], [place] [phone] Care Team Providers Care Cattle Feeder Name Role Phone Merle Raymundo Unavailable Unavailable JAD TASHIA Unavailable [phone] Allergies No Known Allergies Reason For Referral No Information Vital Signs Height-cm 152.4 cm 01/15/2024 Weight-kg 49.9 kg 01/15/2024 Height 60 in 01/15/2024 Weight 110 lbs 01/15/2024 BMI 21.48 kg/m2 01/15/2024 Encounters Encounter Location Date Provider Diagnosis [facility] [place] [address] [place], [place] [id number] 01/15/[address] Tinea unguium B35.1 ; [...] toe(s) (ICD-10 - M79.675) Plan Of Treatment Pending Test Test Name Order Date Liver Function Test (LFT) 01/15/2024 Insurance Providers Payer Name Payer Address Payer Phone Subscriber Number Group Number Insured Name Patient Relationship to Insured Coverage Start Date Coverage End Date [facility] ([facility] ATTN CLAIMS [address] [place] [address] [id number] BILL PATIÑO Spouse - patient is the spouse of the insured Medical (General) History Medical History History ICD Code fibromyalgia neuropathy Arthritis Thyroid Disease Back Trouble Surgical History Surgery Date(Month/Year) Hysterectomy bunionectomy
--- OUTSIDE RECORDS SUMMARY | 2025-01-02 08:53 | XMS_ITS | Encounter Summary ---
Author Organization [facility] Address [address] [place] [address] Care Team Providers Care Instrument Tech Name Role Phone Unavailable Primary Care Provider Unavailabl e Encounter Details Date Type Department Care Team (Late st Contact Info) Description 01/27/2000 Outpatient Historical [facility] [address] [facility] [address] [place] [address] Campos Caba (Two) Social History Tobacco Use Types Packs/Day Years Used Date Smoking Tobacco: Never Assessed Comments Unknown Sex and Gender Information Value Date Recorded Sex Assigned at Not on file Legal Sex Female 3:16 AM GUEST EXPERIENCE REPRESENTATIVE Gender Identity Not on file Sexual Orientation Not on file documented as of this encounter Plan of Treatment Not on file documented as of this encounter Visit Diagnoses Not on filedocumented in this encounter
--- OUTSIDE RECORDS SUMMARY | 2025-01-02 08:53 | XMS_ITS | Encounter Summary ---
Author Organization [facility] Address [address] [place] [address] Care Team Providers Care Vacuum Applicator Operator Name Role Phone Unavailable Primary Care Provider Unavailabl e Encounter Details Date Type Department Care Team (Late st Contact Info) Description 11/08/1999 Outpatient Historical [facility] Headache Center [address] [place] [address] Campos Caba (Two) Social History Tobacco Use Types Packs/Day Years Used Date Smoking Tobacco: Never Assessed Comments Unknown Sex and Gender Information Value Date Recorded Sex Assigned at Not on file Legal Sex Female 3:16 AM COMMERCIAL PORTFOLIO 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
[2025-01-02 09:06] LABS: Basophils Absolute Auto 0.1 K/mm3 (0.0-0.1); Basophils Percent Auto 1.8 % (0.2-1.2); Eosinophils Absolute Auto 0.2 K/mm3 (0-0.3); Eosinophils Percent Auto 3.4 % (0-4.4); Hemoglobin 13.5 g/dL (12.0-15.0); Immature Granulocyte Absolute 0.01 K/mm3 (0.00-0.031); Immature Granulocyte Percent A 0.2 % (0-0.5); Lymphocytes Absolute Auto 2.16 K/mm3 (0.9-3.2); Lymphocytes Percent Auto 34.5 % (18.3-44.2); Mean Corpuscular HGB Conc 33.8 g/dl (32-36); Mean Corpuscular Hemoglobin 32.8 pg (26-34); Mean Corpuscular Volume 97.1 fl (80-100); Monocytes Absolute Auto 0.5 K/mm3 (0.1-0.6); Monocytes Percent Auto 7.3 % (2.6-8.5); Neutrophils Absolute Auto 3.3 K/mm3 (1.3-6.7); Neutrophils Percent Auto 52.8 % (45.5-73.1); Platelet Count Result 310 k/mm3 (150-375); Red Blood Count 4.12 M/mm3 (4.2-5.4); Red Cell Distribution Width 13.5 % (11.5-14.5); White Blood Count 6.3 K/mm3 (4.5-10.0)
[2025-01-02 09:18] LABS: Alanine Aminotransferase 26 U/L (6-35); Albumin Level 4.6 g/dL (3.5-5.1); Alkaline Phosphatase 66 U/L (38-126); Anion Gap 10 mmol/L (4-12); Aspartate Amino Transferase 32 U/L (14-36); Bilirubin,Total 0.7 mg/dL (0.2-1.3); Blood Urea Nitrogen 17 mg/dL (7-17); Calcium 9.5 mg/dL (8.4-10.2); Carbon Dioxide 26 mmol/L (22-30); Chloride 104 mmol/L (98-107); Estimated CRCL calculation 47 ml/min; Estimated Glomerular Filt Rate > 60; Glucose 83 mg/dL (65-110); Potassium 3.9 mmol/L (3.4-5.0); Sodium 140 mmol/L (137-145)
[2025-01-02 09:31] LABS: D Dimer 0.49 ug/mL (<0.48)
[2025-01-02 09:32] LABS: Troponin I < 0.012 ng/mL (0.000-0.034)
--- NOTE | 2025-01-02 09:34 | ED_ITS ---
HPI - SOB/Dyspnea General Chief Complaint: Shortness of Breath/Dyspnea Stated Complaint: SOB Time Seen by Provider: 01/02/25 09:01 Source: patient Mode of arrival: ambulatory Limitations: no limitations History of Present Illness HPI Narrative: Patient is a 64-year-old female, with PMH of chronic back pain, spinal fusion of T11-S1, hypothyroidism, anxiety, MVP, who presents the ED with report of left- sided chest pain. Patient reports she has had a dry cough over the last 2 days. Began having pain throughout her left-sided chest/lateral ribcage, radiating like a band around her upper diaphragm, on Monday. States pain became worse last night. Attempted taking Tylenol and her home tramadol without improvement. Worse with movement and deep inspiration. She feels short of breath due to the pain. Reports subjective fevers, chills. Denies lower extremity pain or swelling. Denies previous cardiac issues. Does note that her friend had similar URI symptoms last week. Related Data Home Medications ?Medication ?Instructions ?Recorded ?Confirmed ?Last Taken ?Type duloxetine 60 mg capsule,delayed 60 mg PO BID 02/27/20 08/11/23 08/10/23 History release (Cymbalta) gabapentin 800 mg tablet 800 mg PO TID 02/27/20 08/11/23 08/11/23 History levothyroxine 175 mcg tablet 175 mcg PO DAILY 02/27/20 08/11/23 08/11/23 History (Synthroid) albuterol sulfate 90 mcg/actuation 1 puff inhalation USEASDIRECTD 07/28/23 01/02/25 Unknown History aerosol inhaler baclofen 10 mg tablet 10 mg PO DIRECTED PRN Pain 07/28/23 08/11/23 Unknown History bupropion HCl 150 mg tablet,12 hr 150 mg PO DAILY 07/28/23 08/11/23 08/10/23 History sustained-release clonidine HCl 0.2 mg tablet 0.2 mg PO DAILY 07/28/23 08/11/23 08/11/23 History cyanocobalamin (vitamin B-12) 1 tablet PO DAILY 07/28/23 08/11/23 08/07/23 History cyclobenzaprine 10 mg tablet 10 mg PO USEASDIRECTD PRN Pain 07/28/23 08/11/23 08/11/23 History methocarbamol 500 mg tablet 500 mg PO USEASDIRECTD PRN Pain 07/28/23 08/11/23 Unknown History prazosin 1 mg capsule 1 mg PO HS Nightmares 07/28/23 08/11/23 07/27/23 History sumatriptan succinate 100 mg tablet 100 mg PO DIRECTED PRN Migraine 07/28/23 08/11/23 Unknown History Headache temazepam 30 mg capsule 30 mg PO USEASDIRECTD PRN Insomnia 07/28/23 08/11/23 Unknown History tramadol 100 mg tablet 100 mg PO BID PRN Pain 07/28/23 08/11/23 08/10/23 History trazodone 100 mg tablet 100 mg PO USEASDIRECTD PRN Insomnia 07/28/23 08/11/23 Unknown History Allergies Allergy/AdvReac Type Severity Reaction Status Date / Time gluten Allergy Unknown Diarrhea Verified 01/02/25 09:00 Review of Systems 2 Review of Systems: All systems reviewed & are unremarkable except as noted in HPI. All systems reviewed & are unremarkable except as noted in HPI and below PMFSH Past Medical History Medical History Anxiety Hypothyroidism MVP (mitral valve prolapse) Asthma Hypertension Surgical History Surgical History History of History of hysterectomy Family History Family History Mother Hypertension Family history of elevated blood lipids Family history of coronary artery disease Family history of malignant neoplasm Patient's mother is Family history of cardiovascular disease Father Patient's father is Family history of primary malignant neoplasm of liver Sibling Patient's sister is in good health Patient's brother is in good health Grandparent Family history of cardiovascular disease Cerebrovascular accident Social History Social History Smoking status: Former smoker Second hand tobacco smoke exposure: Yes Smoking end date: 10/30/09 Additional smoking assessment comments: quit 9 weeks ago, smoked 1 ppd for 11 years Alcohol intake: never Substance use type: does not use Living arrangements: with family Spiritual care concerns: No Exam 2 Narrative: GENERAL: Well appearing, thin, non-toxic, in no acute distress. HEAD: Normocephalic, atraumatic. RESPIRATORY: Airway patent, respirations nonlabored. No wheezing. Slight rhonchi in lung bases bilaterally. CARDIOVASCULAR: Regular rate and rhythm without murmurs, rubs, or gallops. ABDOMINAL: Soft, TTP along L upper lateral abdomen/lateral chest, nondistended. Normoactive BS. MUSCULOSKELETAL: Moves all extremities. No gross deformities. Tenderness to palpation along left lower inferior lateral ribcage/anterior chest wall. Kyphosis. SKIN: Warm, dry, normal color. NEURO: A&O X3. Speech clear. Cranial nerves II-XII grossly intact. Steady gait. No ataxic movements. PSYCHIATRIC: Appropriate mood and affect. Normal interaction. Course Vital Signs Vital signs: Vital Signs Temperature 97.8 F 01/02/25 08:47 Pulse Rate 86 01/02/25 08:47 Respiratory Rate 20 01/02/25 08:47 Blood Pressure 126/87 01/02/25 08:47 Pulse Oximetry 99 01/02/25 08:47 Oxygen Delivery Room Air 01/02/25 08:47 Temperature 97.8 F 01/02/25 08:47 Pulse Rate 64 01/02/25 11:50 Respiratory Rate 18 01/02/25 11:50 Blood Pressure 140/88 01/02/25 11:50 Pulse Oximetry 97 01/02/25 11:50 Oxygen Delivery Room Air 01/02/25 10:04 MDM - SOB/Dyspnea MDM Narrative Medical decision making narrative: Patient presented to ED with left-sided chest wall pain, URI symptoms for the past 2 days. Vital signs are stable upon arrival. Patient is in no acute distress. Cbc without leukocytosis or anemia. CMP is unremarkable. Stable electrolytes and kidney function. EKG is with normal sinus rhythm, no acute ischemic changes. Troponin is undetectable. D-dimer did result elevated at 0.49. Initial chest x-ray showed hyperinflation, but no focal findings. CTA PE study was obtained and showing atelectasis, no PE or other focal infiltrate. Viral swabs are negative. Discussed lab and imaging findings, overall reassuring workup with patient. Suspect pleurisy picture/URI. Patient feeling improved with supportive therapy in the ED. Feel she is safe for discharge home at this time. She has lidocaine patches she can use at home. Will also prescribe short course of muscle relaxers. Advised to continue anti-inflammatories. Recommended close follow-up with PCP for further evaluation. She was given strict return precautions. Feels comfortable w/ discharge home. Discharged in stable condition. Medical Records Attestation: I reviewed the patient's medical records. Lab Data Attestation: I reviewed the patient's lab results. 01/02/25 09:01 01/02/25 09:01 Labs: Lab Results 01/02/25 01/02/25 01/02/25 Range/Units 09:01 09:01 09:07 WBC 6.3 (4.5-10.0) K/mm3 RBC 4.12 L (4.2-5.4) M/mm3 Hgb 13.5 (12.0-15.0) g/dL Hct 40.0 (37.0-47.0) % MCV 97.1 (80-100) fl MCH 32.8 (26-34) pg MCHC 33.8 (32-36) g/dl RDW 13.5 (11.5-14.5) % Plt Count 310 (150-375) k/mm3 MPV 10.0 (7.4-10.4) fl Immature Gran % (Auto) 0.2 (0-0.5) % Neut % (Auto) 52.8 (45.5-73.1) % Lymph % (Auto) 34.5 (18.3-44.2) % [place] % (Auto) 7.3 (2.6-8.5) % Eos % (Auto) 3.4 (0-4.4) % Baso % (Auto) 1.8 H (0.2-1.2) % Lymph # (Auto) 2.16 (0.9-3.2) K/mm3 [place] # (Auto) 0.5 (0.1-0.6) K/mm3 Eos # (Auto) 0.2 (0-0.3) K/mm3 Baso # (Auto) 0.1 (0.0-0.1) K/mm3 Abs Immat Gran (auto) 0.01 (0.00-0.031) K/mm3 Absolute Neuts (auto) 3.3 (1.3-6.7) K/mm3 Absolute Nucleated RBC 0.000 (0.0-0.012) K/mm3 Nucleated RBC % 0.0 (0.0-0.2) % D-Dimer 0.49 H (<0.48) ug/mL Sodium 140 (137-145) mmol/L Potassium 3.9 (3.4-5.0) mmol/L Chloride 104 (98-107) mmol/L Carbon Dioxide 26 (22-30) mmol/L Anion Gap 10 (4-12) mmol/L BUN 17 (7-17) mg/dL Creatinine 0.83 (0.7-1.0) mg/dL Estim Creat Clear Calc 47 ml/min Estimated GFR > 60 (59 - ) Glucose 83 (65-110) mg/dL Calcium 9.5 (8.4-10.2) mg/dL Total Bilirubin 0.7 (0.2-1.3) mg/dL AST 32 (14-36) U/L ALT 26 (6-35) U/L Alkaline Phosphatase 66 (38-126) U/L Troponin I < 0.012 Cancelled (0.000-0.034) ng/mL Total Protein 8.0 (6.3-8.2) g/dL Albumin 4.6 (3.5-5.1) g/dL Influenza A (RT-PCR) Negative (Negative) Influenza B (RT-PCR) Negative (Negative) RSV (RT-PCR) Negative (Negative) SARS-CoV-2 RNA (RT-PCR) Negative (Negative) Imaging Data Attestation: I personally reviewed and interpreted this imaging study as follows: Radiologist's impression: ITS Impressions Chest X-Ray 01/02/25 09:51 IMPRESSION: Hyperexpansion, without focal infiltrate or effusion. Chest CTA 01/02/25 09:55 IMPRESSION: 1. Mild discoid atelectasis in the right upper and lower lobes. No pulmonary embolism or other acute cardiopulmonary disease. ECG Data EKG #1: Attestation: I personally reviewed and interpreted this ECG as follows: ECG completion date: 01/02/25 ECG completion time: 09:11 EKG Interpretation: normal rate (72), sinus rhythm and no ST changes Discharge Plan Discharge Clinical Impression: Left-sided chest wall pain Upper respiratory infection Qualifiers: URI type: unspecified URI Qualified Code(s): J06.9 - Acute upper respiratory infection, unspecified Patient Disposition: Home, Self-Care Condition: Stable Instructions: Antibiotic Form, Pleurisy (ED), Costochondritis (ED), Upper Respiratory Infection (ED), Chest Wall Pain (ED) Additional Instructions: Your workup here was reassuring. Your pain is likely related to inflammation around your lung lining. Utilize [id number] cough and cold medicines as needed for symptom relief. Continue Tylenol and Ibuprofen as needed for pain. You may use ice/heat, lidocaine patches to area of pain. Take muscle relaxers as needed and prescribed. Recommend taking these at night as they may cause sedation. Do not drive, operate heavy machinery, drink alcohol while on muscle relaxers as this may cause further sedation. Follow-up with your primary care doctor for further evaluation. Return to the ED if you experience worsening or severe pain, difficulty breathing, unable to keep down food or drink, pain or swelling in your legs, coughing blood, or any other symptoms of concern. Patient Language: Malay Prescriptions: New methocarbamol 1,000 mg tablet 1,000 mg PO TID PRN (Reason: muscle spasm) Qty: 10 0RF No Action gabapentin 800 mg tablet 800 mg PO TID levothyroxine [Synthroid] 175 mcg tablet 175 mcg PO DAILY duloxetine [Cymbalta] 60 mg capsule,delayed release(DR/EC) 60 mg PO BID cyclobenzaprine 10 mg tablet 10 mg PO USEASDIRECTD PRN (Reason: Pain) methocarbamol 500 mg tablet 500 mg PO USEASDIRECTD PRN (Reason: Pain) bupropion HCl 150 mg tablet sustained-release 12 hr 150 mg PO DAILY sumatriptan succinate 100 mg tablet 100 mg PO DIRECTED PRN (Reason: Migraine Headache) prazosin 1 mg capsule 1 mg PO HS clonidine HCl 0.2 mg tablet 0.2 mg PO DAILY trazodone 100 mg tablet 100 mg PO USEASDIRECTD PRN (Reason: Insomnia) temazepam 30 mg capsule 30 mg PO USEASDIRECTD PRN (Reason: Insomnia) baclofen 10 mg tablet 10 mg PO DIRECTED PRN (Reason: Pain) albuterol sulfate 90 mcg/actuation HFA aerosol inhaler 1 puff INHALATION USEASDIRECTD tramadol 100 mg tablet 100 mg PO BID PRN (Reason: Pain) cyanocobalamin (vitamin B-12) Tablet,Chewable 1 tablet PO DAILY Follow-up/Referrals: KIANA,RADHA ODEN [Primary Care Provider] - Time of Disposition: 11:02
[2025-01-02] MEDS: LIDOCAINE 5% PATCH 1 PATCH TRANSDERM (09:59)
[2025-01-02] MEDS: HYDROcodone/acetaminophen (*CRX) 5-325 MG TABLET 1 TAB PO (10:00)
[2025-01-02 10:01] LABS: Influenza A QL RT-PCR Negative (Negative); Influenza B QL RT-PCR Negative (Negative); RSV RNA, RT-PCR Negative (Negative); SARS-CoV-2 RNA PCR Negative (Negative)
[2025-01-02 10:08] VITALS: BP 140/88; PULSE 73; RESP 20; O2SAT 99
--- OUTSIDE RECORDS SUMMARY | 2025-01-02 10:38 | XMS_ITS | Encounter Summary ---
Author Organization [facility] Address [address] [place] [address] Care Team Providers Care Enterprise Applications Manager Name Role Phone Merle Raymundo Primary Care Provider [phone] Encounter Details Date Type Department Care Team (Late st Contact Info) Description 01/21/2022 Aesica Pharmaceuticalst Message Enc [facility] Medical Group Family & Internal Medicine [id number] [place] [address] Merle Raymundo FNP [facility] [place], [place] [id number] Tramadol Social History Tobacco Use Types Packs/Day Years Used Date Smoking Tobacco: Every Day Cigarettes 1 12 Smokeless Tobacco: Never Comments:provider to counselor manager : Benefits of smoking cessation reviewed with patient, recommended she quit smoking. Alcohol Use Standard Drinks/Week Comments No 0 (1 standard drink = 0.6 oz pur e alcohol) AUDIT-C Answer Date Recorded Frequency of Alcohol Consumption Never 04/16/2019 Average Number of Drinks Not on file 019 Frequency of Binge Drinking Not on file 03/30 PHQ-2 Answer Date Recorded PHQ-2 Score - If the patient scores above 3, please move on to questions 3-9 2 01/07/2022 Education Answer Date Recorded What is the highest level of school you have completed or the highest degree you have received? Bachelor's degree (e.g., BA, AB, BS) 07/29/2021 Comments No Sex and Gender Information Value Date Recorded Sex Assigned at Female 12/04/2024 3:40 PM BOOKY Legal Sex Female 5:58 PM CDT Gender Identity Not on file Sexual Orientation Not on file COVID-19 Exposure Response Date Recorded In the last 10 days, have yo u been in contact with someone who was confirmed or suspected to have Coronavirus/COVID-19? No / Unsure 01/18/2022 10:43 AM CDT documented as of this encounter Progress Notes * SYBIL Carranza - 01/21/2022 11:51 AM CDT We can try but they probably will not fill this due to her getting it filled recently. documented in this encounter Plan of Treatment Upcoming Encounters Date Type Department Care Team (Late st Contact Info) Description 01/03/2025 3:00 PM BOOKY Office Visit [facility] Medical Group Gastro[facility]ology Specialty Clinic [address] [phone] Iam Ramirez MD [address] [place] [address] 01/28/2025 8:40 AM CDT Office Visit [facility] Medical Group Family & Internal Medicine [address] [phone] Merle Raymundo FNP [address] [place] [address] documented as of this encounter Visit Diagnoses Not on filedocumented in this encounter Additional Health Concerns Assessment Noted Time PHQ-9 Depression Total Score: 2 01/08/20 22 10:04 AM BOOKY documented as of this encounter Care Teams Enterprise Applications Manager Relationship Specialty Start Date End Date Merle Raymundo FNP [address] [place] [address] PCP - General Nurse Practitioner Family 04/16/19 documented as of this encounter
--- OUTSIDE RECORDS SUMMARY | 2025-01-02 10:38 | XMS_ITS | Encounter Summary ---
Author Organization [facility] Address [address] [place] [address] Care Team Providers Care Dinkey Operator Name Role Phone Unavailable Primary Care Provider Unavailabl e Encounter Details Date Type Department Care Team (Late st Contact Info) Description 09/29/2000 Outpatient Historical [facility] [place] Social History Tobacco Use Types Packs/Day Years Used Date Smoking Tobacco: Never Assessed Comments Unknown Sex and Gender Information Value Date Recorded Sex Assigned at Not on file Legal Sex Female 3:16 AM PRODUCT AMBASSADOR Gender Identity Not on file Sexual Orientation Not on file documented as of this encounter Plan of Treatment Not on file documented as of this encounter Visit Diagnoses Not on filedocumented in this encounter
--- OUTSIDE RECORDS SUMMARY | 2025-01-02 10:38 | XMS_ITS | Encounter Summary ---
Author Organization [facility] Address [address] [place] [address] Care Team Providers Care Photography Colorist Name Role Phone Unavailable Primary Care Provider Unavailabl e Encounter Details Date Type Department Care Team (Late st Contact Info) Description 01/27/2000 Outpatient Historical [facility] Headache Center [address] [place] [address] Campos Caba (Two) Social History Tobacco Use Types Packs/Day Years Used Date Smoking Tobacco: Never Assessed Comments Unknown Sex and Gender Information Value Date Recorded Sex Assigned at Not on file Legal Sex Female 3:16 AM REHABILITATION COORDINATOR Gender Identity Not on file Sexual Orientation Not on file documented as of this encounter Plan of Treatment Not on file documented as of this encounter Visit Diagnoses Not on filedocumented in this encounter
--- OUTSIDE RECORDS SUMMARY | 2025-01-02 10:38 | XMS_ITS | Encounter Summary ---
Author Organization [facility] Address [address] [place] [address] Care Team Providers Care Remnants Cutter Name Role Phone Unavailable Primary Care Provider Unavailabl e Encounter Details Date Type Department Care Team (Late st Contact Info) Description 11/08/1999 Outpatient Historical [facility] Center [address] [place] [address] Campos Caba (Two) Social History Tobacco Use Types Packs/Day Years Used Date Smoking Tobacco: Never Assessed Comments Unknown Sex and Gender Information Value Date Recorded Sex Assigned at Not on file Legal Sex Female 3:16 AM ENVIRONMENTAL HEALTH TECHNOLOGIST Gender Identity Not on file Sexual Orientation Not on file documented as of this encounter Plan of Treatment Not on file documented as of this encounter Visit Diagnoses Not on filedocumented in this encounter
--- OUTSIDE RECORDS SUMMARY | 2025-01-02 10:38 | XMS_ITS | Encounter Summary ---
Author Organization [facility] Address [address] [place] [address] Care Team Providers Care Quality Technician Fiberglass Name Role Phone Merle Raymundo SYBIL Primary Care Provider [phone] Encounter Details Date Type Department Care Team (Late st Contact Info) Description 01/21/2022 Fluential Message Enc [facility] Medical Group Family & Internal Medicine [address] [address] Susan, [facility] Provider Ultram Social History Tobacco Use Types Packs/Day Years Used Date Smoking Tobacco: Every Day Cigarettes 1 12 Smokeless Tobacco: Never Comments:provider to drug abuse counselor : Benefits of smoking cessation reviewed with [...] Sex Assigned at Female 12/04/2024 3:40 PM SEWAGE SCREEN OPERATOR Legal Sex Female 5:58 PM CDT Gender Identity Not on file Sexual Orientation Not on file COVID-19 Exposure Response Date Recorded In the last 10 days, have yo u been in contact with someone who was confirmed or suspected to have Coronavirus/COVID-19? No / Unsure 01/18/2022 10:43 AM CDT documented as of this encounter Plan of Treatment Upcoming Encounters Date Type Department Care Team (Late st Contact Info) Description 01/03/2025 3:00 PM SEWAGE SCREEN OPERATOR Office Visit [facility] Gastroenterology Specialty Clinic [address] [phone] Ima Ramirez MD [address] [address] 01/28/2025 8:40 AM CDT Office Visit [facility] Family & Internal Medicine [address] [phone] Merle Raymundo FNP [facility] [place] [address] documented as of this encounter Visit Diagnoses Not on filedocumented in this encounter Additional Health Concerns Assessment Noted Time PHQ-9 Depression Total Score: 2 01/08/20 22 10:04 AM SEWAGE SCREEN OPERATOR documented as of this encounter Care Teams Quality Technician Fiberglass Relationship Specialty Start Date End Date Merle Raymundo FNP [address] [place] [address] PCP - General Nurse Practitioner Family 04/16/19 documented as of this encounter
--- OUTSIDE RECORDS SUMMARY | 2025-01-02 10:38 | XMS_ITS | Encounter Summary ---
Author Organization [facility] Address [address] [place] [address] Care Team Providers Care Physician Neonatology Name Role Phone Merle Raymundo SYBIL Primary Care Provider [phone] Encounter Details Date Type Department Care Team (Late Contact Info) Description 12/06/2021 Knowable Message Enc [facility] Medical Group Family & Internal Medicine [address] [address] Susan, [facility] Provider Medication refill Social History Tobacco Use Types Packs/Day Years Used Date Smoking Tobacco: Every Day Cigarettes 1 12 Smokeless Tobacco: Never Comments:provider to recreation counselor : Benefits of smoking cessation reviewed [...] 3, please move on to questions 3-9 1 05/31/2021 Education Answer Date Recorded What is the highest level of school you have completed or the highest degree you have received? Bachelor's degree (e.g., BA, AB, BS) 07/29/2021 Comments No Sex and Gender Information Value Date Recorded Sex Assigned at Female 12/04/2024 3:40 PM POSITIVE PRINTER OPERATOR Legal Sex Female 5:58 PM CDT Gender Identity Not on file Sexual Orientation Not on file documented as of this encounter Plan of Treatment Upcoming Encounters Date Type Department Care Team (Late st Contact Info) Description 01/03/2025 3:00 PM POSITIVE PRINTER OPERATOR Office Visit [facility] Gastroenterology Specialty Clinic [address] [phone] Iam Ramirez MD [address] [place] [address] 01/28/2025 8:40 AM CDT Office Visit [facility] Family & Internal Medicine [address] [address] Merle Raymundo FNP [address] [place] [address] documented as of this encounter Visit Diagnoses Not on filedocumented in this encounter Additional Health Concerns Assessment Noted Time PHQ-9 Depression Total Score: 1 05/31/20 21 1:15 PM CDT documented as of this encounter Care Teams Physician Neonatology Relationship Specialty Start Date End Date Merle Raymundo FNP [address] [place] [address] PCP - General Nurse Practitioner Family 04/16/19 documented as of this encounter
--- OUTSIDE RECORDS SUMMARY | 2025-01-02 10:38 | XMS_ITS | Clinical Summary ---
Author Organization [facility] Address [address], [address] [address] Phone Care Team Providers Care City Editor Name Role Phone Merle Raymundo APRN, AIR INTERCEPT CONTROLLER SUPERVISOR Primary Care Provider Allergies No known active [...] Most Recently Relevant to Health Maintenance Insurance [facility] Care Teams City Editor Relationship Specialty Start Date End Date Merle Raymundo APRN, AIR INTERCEPT CONTROLLER SUPERVISOR [address] [place] [phone] PCP - General Internal Medicine 11/08/16
--- OUTSIDE RECORDS SUMMARY | 2025-01-02 10:38 | XMS_ITS | Encounter Summary ---
Author Organization [facility] Address [address] [place] [address] Care Team Providers Care Water Technician Name Role Phone Unavailable Primary Care Provider Unavailabl e Encounter Details Date Type Department Care Team (Late st Contact Info) Description 11/08/2002 Outpatient Historical [facility] Center [address] [facility] [address] [place] [address] Campos Caba (Two) Social History Tobacco Use Types Packs/Day Years Used Date Smoking Tobacco: Never Assessed Comments Unknown Sex and Gender Information Value Date Recorded Sex Assigned at Not on file Legal Sex Female 3:16 AM FARM BUTCHER Gender Identity Not on file Sexual Orientation Not on file documented as of this encounter Plan of Treatment Not on file documented as of this encounter Visit Diagnoses Not on filedocumented in this encounter
--- OUTSIDE RECORDS SUMMARY | 2025-01-02 10:38 | XMS_ITS | Encounter Summary ---
Author Organization [facility] Address [address] [place] [address] Care Team Providers Care Supervisor Long Goods Name Role Phone Unavailable Primary Care Provider Unavailabl e Encounter Details Date Type Department Care Team (Late st Contact Info) Description 10/06/2000 Outpatient Historical [facility] [address] [place] [address] [facility] (Two) Social History Tobacco Use Types Packs/Day Years Used Date Smoking Tobacco: Never Assessed Comments Unknown Sex and Gender Information Value Date Recorded Sex Assigned at Not on file Legal Sex Female 3:16 AM [employer] Gender Identity Not on file Sexual Orientation Not on file documented as of this encounter Plan of Treatment Not on file documented as of this encounter Visit Diagnoses Not on filedocumented in this encounter
--- OUTSIDE RECORDS SUMMARY | 2025-01-02 10:38 | XMS_ITS | Clinical Summary ---
Author Organization [facility] Address [address] [place] [address] Care Team Providers Care Music Critic Name Role Phone Merle Raymundo SYBIL Primary Care Provider [phone] Allergies Active Allergy Reactions Criticality Noted Date Comments Gluten Meal GI Upset Other reaction(s): Allergic state (disorder) GI distress Medications lidocaine (LIDODERM) 5 %Indications:F dante back surgical syndrome,Spasm of muscle of lower back Place 1 patch onto the skin daily. 90 patch 1 07/28/20 22 Active SUMAtriptan (IMITREX) 100 MG tabletIndicati ons:Other migraine without status migrainosus, not intractable TAKE 1 TABLET AT ONSET OF SYMPTOMS. MAY TAKE 1 TABLET 2 HOURS LATER. MAXIMUM OF 2 TABLETS IN 24 HOUR PERIOD 54 tablet 3 04/03/20 24 Active albuterol sulfate HFA 108 (90 Base) MCG/ACT inhalerIndicat ions:Cough USE 2 INHALATIONS EVERY 4 HOURS NEEDED FOR WHEEZING 25.5 g 3 06/03/20 24 Active cyclobenzaprin e (FLEXERIL) 10 MG tabletIndicati ons:Other chronic pain TAKE 1 TABLET THREE TIMES A DAY NEEDED (SPASMS) 270 tablet 3 06/03/20 24 Active SYNTHROID 125 MCG tablet Take 1 tablet (125 mcg total) by mouth every morning. 08/03/20 24 Active baclofen (LIORESAL) 10 MG tabletIndicati ons:Spasm of muscle of lower back TAKE 1 TABLET THREE TIMES A DAY 90 tablet 08/29/20 24 Active buPROPion SR (WELLBUTRIN SR) 150 MG 12 hr tabletIndicati ons:Recurrent major depressive disorder, in partial remission (CMS/HCC) take 1 tablet by mouth twice a day 180 tablet 3 09/16/20 24 Active cloNIDine (CATAPRES) 0.2 MG tabletIndicati ons:Hypertensi on, benign TAKE 1 TABLET FOUR TIMES A DAY 360 tablet 3 09/27/20 24 Active traMADol HCl 100 MG TabIndications :Chronic Pain Take 1 tablet (100 mg total) by mouth 3 (three) times daily as needed. Indications: Chronic Pain FOR PAIN 90 tablet 2 09/30/20 24 Active DULoxetine (CYMBALTA) 30 MG capsuleIndicat ions:Other chronic pain TAKE 1 CAPSULE DAILY 90 capsule 3 11/01/19 25 Active pantoprazole EC (PROTONIX) 40 MG tabletIndicati ons:Gastroesop hageal reflux disease, unspecified whether esophagitis present TAKE 1 TABLET BY MOUTH EVERY DAY 30 tablet 3 11/04/19 25 Active methocarbamol (ROBAXIN) 500 MG tabletIndicati ons:Spasm of muscle of lower back TAKE 1 TABLET BY MOUTH THREE TIMES A DAY 90 tablet 3 11/06/19 25 Active traZODone (DESYREL) 100 MG tabletIndicati ons:Primary insomnia TAKE 3 TABLETS NIGHTLY AT BEDTIME 270 tablet 3 11/11/19 25 Active DULoxetine (CYMBALTA) 60 MG capsuleIndicat ions:Other chronic pain TAKE 2 CAPSULES DAILY (MUST BE SEEN FOR FURTHER REFILLS) 180 capsule 3 11/18/19 25 Active prazosin (MINIPRESS) 1 MG capsuleIndicat ions:Anxiety state TAKE 1 CAPSULE FOUR TIMES A DAY 360 capsule 3 11/26/19 25 Active gabapentin (NEURONTIN) 800 MG tabletIndicati ons:Fibromyalg ia Take 1 tablet (800 mg total) by mouth 3 (three) times daily. 270 tablet 12/09/19 25 Active temazepam (RESTORIL) 30 MG capsuleIndicat ions:Primary insomnia Take 1 capsule (30 mg total) by mouth nightly as needed. FOR SLEEP 30 capsule 3 12/16/19 25 Active sucralfate (CARAFATE) 1 G tabletIndicati ons:Acute gastric ulcer without hemorrhage or perforation TAKE 1 TABLET (1 G TOTAL) BY MOUTH 3 (THREE) TIMES DAILY BEFORE MEALS FOR 60 DAYS. 270 tablet 1 12/27/19 25 025 Active gabapentin (NEURONTIN) 800 MG tabletIndicati ons:Fibromyalg ia TAKE 1 TABLET THREE TIMES A DAY 270 tablet 3 11/28/19 24 025 Discontinued(R eorder) temazepam (RESTORIL) 30 MG capsuleIndicat ions:Primary insomnia Take 1 capsule (30 mg total) by mouth nightly as needed. FOR SLEEP 30 capsule 11/11/19 25 025 Discontinued(R eorder) sucralfate (CARAFATE) 1 G tabletIndicati ons:Acute gastric ulcer without hemorrhage or perforation Take 1 tablet (1 g total) by mouth 3 (three) times daily before meals for 60 days. 180 tablet 12/04/19 25 025 Discontinued Active Problems Problem Noted Date Diagnosed Date Unintentional weight loss 07/16/2024 History of colon polyps 07/16/2024 Gastroesophageal reflux dise ase, unspecified whether esophagitis present 07/16/2024 Thoracic facet joint syndrome 04/30/2024 Myofascial pain 02/09/2024 Weight loss, non-intentional 05/07/2021 Neuropathy 03/12/2021 Family history of early CAD 03/12/2021 Hx of colonic polyps 06/19/2019 Spine deformity 04/21/2019 Ankylosis of thoracic spine 04/21/2019 Spondylosis 04/21/2019 Vitamin D deficiency 04/21/2019 Opioid type dependence, abuse ([facility]) 07/21/2018 Chronic sinus infection 05/23/2018 Anxiety state 03/21/2018 Fatigue 02/15/2018 Hypoglycemia 02/15/2018 Spasm of muscle of lower back 02/15/2018 Depression 07/07/2017 Insomnia 07/07/2017 Anemia 11/16/2016 Constipation 11/16/2016 Post-menopausal 11/14/2016 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 Arthritis 11/02/2016 Extrinsic asthma ([facility]) 11/02/2016 Chronic pain 11/02/2016 Hypertension, benign 11/02/2016 Hypothyroidism 11/02/2016 Fibromyalgia 05/12/2010 Resolved Problems Problem Noted Date Diagnosed Date Resolved Date Acute recurrent frontal sinusitis 08/06/2019 02/24/2023 Acute non-recurrent frontal sinusitis 06/19/2019 09/09/2021 Encounter for screening for malignant neoplasm of colon 04/21/2019 07/10/2020 Pneumonia due to infectious organism, unspecified laterality, unspecified part of lung 07/21/2018 09/09/2021 Sepsis, due to unspecified organism 07/21/2018 09/09/2021 Cough 11/03/2016 09/09/2021 Encounters Date Type Department Care Team Description 12/20/2024 [facility] - [address] [place] [phone] Matthew Ramirez MD Results 12/20/2024 [facility] [address] [place] [address] Matthew Ramirez MD Appointment Request 12/19/2024 11:00 AM SAW MAN - 12/19/2024 11:59 PM SAW MAN Hospital Encounter [facility] Medicine [id number] [place] [address] Matthew Ramirez MD Discharge Disposition: Home or Self Care (Routine Discharge) 12/19/2024 [facility] [address] [place] [phone] Matthew Ramirez MD Results 12/19/2024 Travel 12/17/2024 12:11 PM SAW MAN - 12/17/2024 11:59 PM SAW MAN Hospital Encounter [facility] Ultrasound [address] [place] [address] Matthew Ramirez MD Discharge Disposition: Home or Self Care (Routine Discharge) 12/17/2024 Travel 12/16/2024 Orders Only [facility] - [address] [phone] Mrele Raymundo FNP 12/04/2024 3:40 PM SAW MAN [facility] [address] [place] [phone] Matthew Ramirez MD Follow Up (Discuss ERCP) 12/04/2024 Travel 12/02/2024 [facility]phone [facility] - [address] [place] [address] Nola Fields NP Results 11/26/2024 12:25 PM SAW MAN - 11/26/2024 11:59 PM SAW MAN Hospital Encounter [facility] MRI [address] [place] [address] Matthew Ramirez MD Discharge Disposition: Home or Self Care (Routine Discharge) 11/26/2024 Travel 11/11/2024 8:00 AM SAW MAN Office Visit [facility] - [address] [place] [address] Nola Fields NP Follow Up (F/u (colonoscopy/EGD/CT )) 11/11/2024 [facility]phone [facility] - [address] [place] [address] Matthew Ramirez MD Results 11/11/2024 Travel 11/09/2024 Orders Only [facility] - [address] [place] [address] Matthew Ramirez MD 11/06/[address] [place] [address] Matthew Ramirez MD Results 11/05/2024 8:48 AM SAW MAN - 11/05/2024 11:59 PM SAW MAN [facility] [place] [address] [place] [address] Matthew Ramirez MD Discharge Disposition: Home or Self Care (Routine Discharge) 11/05/2024 Travel 11/04/2024 [facility]phone [facility] [address] [place] [address] Matthew Ramirez MD Results 10/21/2024 MyCNerdiest Message Enc [facility] [address] [address] Merle Raymundo FNP PT 10/16/2024 9:09 AM SAW MAN - 10/16/2024 9:51 AM SAW MAN Surgery [facility] [address] [place] [address] Matthew Ramirez MD EGD With Biopsies 10/16/2024 9:01 AM SAW MAN Anesthesia Event [facility] [address] [place] [address] Swathi Messer, MADELAINE 10/16/2024 7:51 AM SAW MAN - 10/16/2024 10:45 AM SAW MAN Hospital Encounter [facility] [address] [place] [address] Matthew Ramirez MD Discharge Disposition: Home or Self Care (Routine Discharge) 10/16/2024 Orders Only [facility] - [address] [place] [address] Matthew Ramirez MD 10/16/2024 [facility] [address] [place] [address] Matthew Ramirez MD 10/16/2024 Travel 10/14/2024 MyChart Message Enc [facility] [address] [phone] Merle Raymundo FNP Medication refill from Last 3 Months Immunizations Name Administration Dates Next Due Arexvy Respiratory Syncytial Virus (RSV, adjuvanted) 0.5 mL, PF 10/17/2023 FLUCELVAX (ccIIV3, TRIVALENT, 0.5mL) 09/17/2024 Fluarix 11/02/2016 Flucelvax 2 YRS+ (Multi-Dose Vial) 08/23/2019 Fluzone 6 Months+ Quad (0.5 mL Prefilled Syringe) 07/06/2020 Influenza (Generic) 11/02/2016 Influenza Adult (Generic) 08/08/2023,,07/20/2022,2020,07/06/2020,08/23/2019 Pneumococcal (Pneumovax 23) 09/10/2019 Pneumococcal (Prevnar 13) 02/24/2023 Shingrix 09/19/2020,09/25/2019 Tdap (Boostrix) 06/19/2019 Zoster (Zostavax) 57200 Unt/0.65Ml 09/19/2020 Family History Medical History Relation Comments Alcohol Abuse Father Liver cancer Father Diabetes Maternal Grandmother Arthritis Mother Heart Attack Mother Early 40s Hypertension Mother Tobacco use Mother Heart Paternal Grandmother Relation Status Comments Father (Age 49) Maternal Grandmother Mother Paternal Grandmother Social History Tobacco Use Types Packs/Day Years Used Date Smoking Tobacco: Every Day Cigarettes 1 12 Passive Smoke Exposure: Current Smokeless Tobacco: Never Tobacco Cessation:Ready to Q uit: Not Asked; Counseling Given: Yes Comments:provider to reimbursement counselor: Benefits of smoking cessation reviewed with patient, recommended she quit smoking. Alcohol Use Standard Drinks/Week Comments No 0 (1 standard drink = 0.6 oz pur e alcohol) AUDIT-C Answer Date Recorded Frequency of Alcohol Consumption Never 04/16/2019 Average Number of Drinks Not on file 019 Frequency of Binge Drinking Not on file 03/30 PHQ-2 Answer Date Recorded Patient Health Questionnaire-2 Score 0 11/11/2024 Education Answer Date Recorded What is the highest level of school you have completed or the highest degree you have received? Bachelor's degree (e.g., BA, AB, BS) 07/29/2021 Comments No Sex and Gender Information Value Date Recorded Sex Assigned at Female 12/04/2024 3:40 PM SAW MAN Legal Sex Female 5:58 PM CDT Gender Identity Not on file Sexual Orientation Not on file Last Filed Vital Signs Vital Sign Reading Time Taken Comments Blood Pressure 110/75 12/04/2024 3:40 PM SAW MAN Pulse 105 12/04/2024 3:40 PM SAW MAN Temperature 36.4 C (97.6 F) 12/04/2024 3:40 PM SAW MAN Respiratory Rate 22 11/11/2024 8:07 AM SAW MAN Oxygen Saturation 96% 12/04/2024 3:40 PM SAW MAN Inhaled Oxygen Concentration - - Weight 49 kg (108 lb) 12/04/2024 3:40 PM SAW MAN Height 154.9 cm (5' 1 ) 12/04/2024 3:40 PM SAW MAN Body Mass Index 20.41 12/04/2024 3:40 PM SAW MAN Plan of Treatment Upcoming Encounters Date Type Department Care Team (Late st Contact Info) Description 01/03/2025 3:00 PM SAW MAN Office Visit [facility] [address] [address] Matthew Ramirez MD [address] [place] [address] 01/28/2025 8:40 AM CDT Office Visit [facility] [address] [place] [address] Merle Raymundo FNP [address] [place] [address] Health Maintenance Due Date Last Done Comments Annual Physical 1963 Mammogram Screening 12/08/2024 12/08/2022, 08/12/2020, 05/14/2019, Additional history exists Zoster Vaccines (3 of 3) 05/07/2025 020, 09/19/2020, 09/25/2019 Postponed from 11/14/2020 (Going to Outside Clinic) Pneumococcal Vaccine: Pediatrics (0 to 5 Years) and At-Risk Patients (6 to 64 Years) (3 of 3 - PPSV23 or PCV20) 2026 02/24/2023, 09/10/2019 DTaP, Tdap and Td Vaccines (2 - Td or Tdap) 06/19/2029 06/19/2019 Colorectal Cancer Screening Colonoscopy (10 Years) 10/16/2034 10/16/2024, 03/31/2020 Hepatitis C Completed 05/21/2021, 06/10/2009 RSV Immunization or 60+ Years Completed 10/17/2023 COVID-19 Vaccine Completed 09/17/2024, 04/2023, 04/28/2022, Additional history exists Influenza Adult Completed 09/17/2024, 07/30, 07/21/2022, Additional history exists PHQ-2 (Physician [place]) Completed 11/11/2024 Meningococcal B Vaccine Aged Out No l onger eligible based on patient's age to complete this topic Meningococcal Vaccine Aged Out No lili kirsten eligible based on patient's age to complete this topic RSV Immunizations Under 20 Months Aged Out No longer eligible based on patient's age to complete this topic Medical Devices Implanted Type Area Can Tender Device Identifier Shelf Expiration Date Model / Serial / Lot Back Description:2-10 inch titani um rods and many screws T10-S1 Procedures Procedure Name Priority Date/Time Associated Diagnosis Comments NM HEPATOBILIARY SCAN W/GB EJECTION FRACTION Routine 12/19/2024 1:14 PM SAW MAN RUQ pain US ABD LIMITED Routine 12/17/2024 12:52 PM SAW MAN RUQ pain MRI ABD WWO CON+MRCP Routine 11/26/2024 2:08 PM SAW MAN Dilated bile duct CT ABD+PEL W CON Routine 11/05/2024 10:4 6 AM SAW MAN Right upper quadrant abdominal pain COLONOSCOPY FLX DX W/COLLJ SPEC WHEN PFRMD 10/16/2024 9:00 AM SAW MAN Constipation, unspecified constipation type Unintentional weight loss History of colon polyps Gastroesophageal reflux disease, unspecified whether esophagitis present Case Notes C UPPER GI ENDOSCOPY,DIAGNOSIS 10/16/2024 9:00 AM SAW MAN Constipation, unspecified constipation type Unintentional weight loss History of colon polyps Gastroesophageal reflux disease, unspecified whether esophagitis present Case Notes C PATHOLOGY Routine 10/16/2024 12:00 AM SAW MAN MAMMOGRAM GENERIC (SCAN ORDER) 12/08/2022 HEPATITIS C ANTIBODY W/RFX TO HCV RNA Routine 05/21/2021 12:35 PM CDT COLONOSCOPY GENERIC (SCAN ORDER) 03/31/2020 from Last 3 Months or Most Recently Relevant to Health Maintenance Results * NM HEPATOBILIARY SCAN W/GB EJECTION FRACTION (12/19/2024 1:14 PM SAW MAN) Anatomical Region Laterality Modality Abdomen Nuclear Medicine 12/19/2024 1:56 PM SAW MAN Impressions 12/19/2024 1:58 PM SAW MAN IMPRESSION: 1. Normal biliary imaging study. 2. Normal contractile response of the gallbladder to fatty meal challenge. Referred By: MATTHEW RAMIREZ Interpreted By: Brian Laughlin MD, 12/19/2024 1:56 PM Narrative 12/19/2024 1:58 PM SAW MAN [facility] [address] [place] [address] Hepatobiliary Scintigraphy with Gallbladder Ejection Fraction Date of study: 12/19/2024. Indications: 64-year-old female with right upper quadrant pain. Radiopharmaceutical: 5.6 mCi Tc-99m mebrofenin IV and 8 oz Ensure Plus, p.o. Comparison: -Limited abdominal ultrasound dated 12/17/2024. -MRI abdomen without and with contrast with MRCP dated 11/26/2024. -CT of the abdomen and pelvis with contrast dated 11/05/2024. Technique: Following intravenous administration of Tc-99m mebrofenin, sequential abdominal images were obtained through 60 minutes. In order to evaluate the contractile response of the gallbladder in response to cholecystokinin, 8 oz Ensure Plus was ingested approximately 60 minutes after the administration of the radiopharmaceutical. Sequential imaging was continued for 60 minutes after ingestion of Ensure Plus. Findings: There is prompt, uniform accumulation of tracer by the liver. There is normal filling of the intrahepatic ducts, common bile duct and gallbladder, and normal excretion of tracer into the duodenum. The post-fatty meal (Ensure Plus) images reveal normal contractile response of the gallbladder. The calculated gallbladder ejection fraction is 63% (normal greater than 33%). Procedure Note Brian Laughlin MD - 12/19/2024 [facility] [address] [place] [address] Hepatobiliary Scintigraphy with Gallbladder Ejection Fraction Date of study: 12/19/2024. Indications: 64-year-old female with right upper quadrant pain. Radiopharmaceutical: 5.6 mCi Tc-99m mebrofenin IV and 8 oz Ensure Plus, p.o. Comparison: -Limited abdominal ultrasound dated 12/17/2024. -MRI abdomen without and with contrast with MRCP dated 11/26/2024. -CT of the abdomen and pelvis with contrast dated 11/05/2024. Technique: Following intravenous administration of Tc-99m mebrofenin, sequentialabdominal images were obtained through 60 minutes. In order to evaluatethe contractile response of the gallbladder in response tocholecystokinin, 8 oz Ensure Plus was ingested approximately 60 minutesafter the administration of the radiopharmaceutical. Sequential imagingwas continued for 60 minutes after ingestion of Ensure Plus. Findings: There is prompt, uniform accumulation of tracer by the liver. There isnormal filling of the intrahepatic ducts, common bile duct andgallbladder, and normal excretion of tracer into the duodenum. The post-fatty meal (Ensure Plus) images reveal normal contractileresponse of the gallbladder. The calculated gallbladder ejection fractionis 63% (normal greater than 33%). IMPRESSION: 1. Normal biliary imaging study. 2. Normal contractile response of the gallbladder to fatty mealchallenge. Referred By: MATTHEW RAMIREZ Interpreted By: Brian Laughlin MD, 12/19/2024 1:56 PM us Matthew Ramirez MD NUC MED Final Result * US ABD LIMITED (12/17/2024 12:52 PM SAW MAN) Anatomical Region Laterality Modality Abdomen Ultrasound 12/17/2024 1:24 PM SAW MAN Impressions 12/17/2024 1:32 PM SAW MAN IMPRESSION: 1. Intrahepatic and extrahepatic biliary ductal dilatation and pancreatic duct dilatation as above. Please see recent MRI abdomen dictation. 2. No distinct pancreatic mass. Hepatic hemangioma as above.. 3. Grossly normal gallbladder.. 4. If symptomatology persists, follow-up with ERCP. Ordered By: MATTHEW RAMIREZ Interpreted By: Cem Evans, 12/17/2024 1:24 PM Narrative 12/17/2024 1:32 PM SAW MAN [facility] [address] [place] [address] IMAGING STUDIES: US ABD LIMITED DATE: 12/17/2024 12:12 PM COMPARISON STUDIES: CT abdomen of 11/05/2024. MRI abdomen of 11/26/2024 CLINICAL HISTORY: Right upper quadrant pain. FINDINGS: Normal appearance to the gallbladder without calculi. No gallbladder wall thickening. Mild fatty liver with well-defined hyperechoic lesion in the right lobe of the liver near the shahana hepatis. Measures 3.2 x 1.7 x 2.5 cm. Correlates with recent CT and MRI findings. May be hemangioma. .Hepatic and portal veins are patent.. Common bile duct measures.8.5 mm. Right kidney measures9.3 x 3.4 x 4.1 cm. No focal mass or hydronephrosis. Partially visualized pancreas without focal mass.. As was also noted on prior CT there is a dilated pancreatic duct measuring up to 4.1 mm. Upper limits of normal is 2 mm. No distinct pancreatic head mass. As was also noted on prior CT, there is intrahepatic and extrahepatic biliary ductal dilatation. Procedure Note Reynaldo Evans MD - 12/17/2024 [facility] [address] [place] [address] IMAGING STUDIES: US ABD LIMITED DATE: 12/17/2024 12:12 PM COMPARISON STUDIES: CT abdomen of 11/05/2024. MRI abdomen of 11/26/2024 CLINICAL HISTORY: Right upper quadrant pain. FINDINGS: Normal appearance to the gallbladder without calculi. No gallbladder wallthickening. Mild fatty liver with well-defined hyperechoic lesion in the right lobe ofthe liver near the shahana hepatis. Measures 3.2 x 1.7 x 2.[address] and MRI findings. May be hemangioma. .Hepatic and portal veins are patent.. Common bile duct measures.8.5 mm. Right kidney measures9.3 x 3.4 x 4.1 cm. No focal mass orhydronephrosis. Partially visualized pancreas without focal mass.. As was also noted onprior CT there is a dilated pancreatic duct measuring up to 4.1 mm. Upperlimits of normal is 2 mm. No distinct pancreatic head mass. As was also noted on prior CT, there is intrahepatic and extrahepaticbiliary ductal dilatation. IMPRESSION: 1. Intrahepatic and extrahepatic biliary ductal dilatation and pancreaticduct dilatation as above. Please see recent MRI abdomen dictation. 2. No distinct pancreatic mass. Hepatic hemangioma as above.. 3. Grossly normal gallbladder.. 4. If symptomatology persists, follow-up with ERCP. Ordered By: MATTHEW RAMIREZ Interpreted By: Cem Evans, 12/17/2024 1:24 PM us Matthew Ramirez MD ULTRASOUND Final Result * MRI ABD WWO CON+MRCP (11/26/2024 2:08 PM SAW MAN) Anatomical Region Laterality Modality Abdomen Magnetic Resonan ce 11/29/2024 11:2 2 AM SAW MAN Impressions 11/29/2024 11:35 AM SAW MAN Impression: 1. Redemonstrated intrahepatic and extra hepatic biliary dilation with the CBD again measuring approximately 9 mm. No biliary stricture, stone or mass is identified. 2. No distinct pancreatic mass or inflammatory process. No pancreatic ductal dilation. 3. A 2.8 cm lesion is seen within hepatic segment 5, favored to represent a cavernous hemangioma. Ordered By: MATTHEW RAMIREZ Interpreted By: Jere Ogden MD, 11/29/2024 11:22 AM Narrative 11/29/2024 11:35 AM SAW MAN [facility] [address] [place] [address] Examination: MRI ABD WWO CON+MRCP Clinical Information:Dilated bile duct. Unintentional weight loss. Comparison: CT 11/05/2024. Technique: Sequences: Multiplanar, multisequence MR images of the abdomen and pelvis were obtained before and after the administration of 10 mL of MultiHance. Additional heavily T2-weighted MRCP and maximum intensity projection sequences were performed on a separate workstation and 70 for review. Findings: Motion artifact degrades image quality and limits sensitivity. Additional artifact related to the patient's orthopedic spine hardware limits assessment of regional structures. LIVER: Morphology: Normal. Hepatic steatosis: Absent. Iron overload: Absent. Focal liver lesion(s): A 2.4 x 1.5 x 2.8 cm T2 hyperintense lesion is identified within segment 5 (series 4 image 13 and series 3 image 11)). This correlates with a hypodense regions seen on prior CT imaging that is partially obscured by beam hardening artifact related to spinal hardware. This finding demonstrates signal and enhancement characteristics most consistent with a cavernous hemangioma. Probable small cyst within the left hepatic lobe. Hepatic vasculature: Hepatic and portal veins are normally patent. GALLBLADDER AND BILIARY TREE: The gallbladder appears normal. Intrahepatic and extrahepatic biliary dilation is redemonstrated and appears similar to previous CT imaging. The CBD measures up to approximately 9 mm in diameter. There is no focal suspicious biliary stricture, mass or stone. The duct is dilated to the level of the pancreatic head and ampulla. PANCREAS: No distinct pancreatic mass or inflammatory process identified. No pancreatic ductal dilatation. SPLEEN: Normal. ADRENAL GLANDS: No definite adrenal mass. KIDNEYS: Enhance symmetrically with no evidence of solid mass lesion or hydronephrosis. GASTROINTESTINAL: Imaged large and small bowel are normal in caliber and wall thickness. FREE FLUID: None. VASCULATURE: The abdominal aorta is normal in caliber. LYMPH NODES: No abdominal retroperitoneal or mesenteric lymphadenopathy. LOWER CHEST: Heart is normal in size. The lung bases are clear. No pleural or pericardial effusions. BONES: Extensive surgical hardware of the spine resulting in susceptibility artifact limiting assessment. Procedure Note Jere Ogden MD - 11/29/2024 [facility] [address] [place] [address] Examination: MRI ABD WWO CON+MRCP Clinical Information:Dilated bile duct. Unintentional weight loss. Comparison: CT 11/05/2024. Technique: Sequences: Multiplanar, multisequence MR images of the abdomen and pelviswere obtained before and after the administration of 10 mL of MultiHance.Additional heavily T2-weighted MRCP and maximum intensity projectionsequences were performed on a separate workstation and 70 for review. Findings: Motion artifact degrades image quality and limits sensitivity. Additionalartifact related to the patient's orthopedic spine hardware limitsassessment of regional structures. LIVER: Morphology: Normal. Hepatic steatosis: Absent. Iron overload: Absent. Focal liver lesion(s): A 2.4 x 1.5 x 2.8 cm T2 hyperintense lesion isidentified within segment 5 (series 4 image 13 and series 3 image 11)).This correlates with a hypodense regions seen on prior CT imaging that ispartially obscured by beam hardening artifact related to spinal hardware.This finding demonstrates signal and enhancement characteristics mostconsistent with a cavernous hemangioma. Probable small cyst within theleft hepatic lobe. Hepatic vasculature: Hepatic and portal veins are normally patent. GALLBLADDER AND BILIARY TREE: The gallbladder appears normal. Intrahepaticand extrahepatic biliary dilation is redemonstrated and appears similar toprevious CT imaging. The CBD measures up to approximately 9 mm indiameter. There is no focal suspicious biliary stricture, mass or stone.The duct is dilated to the level of the pancreatic head and ampulla. PANCREAS: No distinct pancreatic mass or inflammatory process identified.No pancreatic ductal dilatation. SPLEEN: Normal. ADRENAL GLANDS: No definite adrenal mass. KIDNEYS: Enhance symmetrically with no evidence of solid mass lesion orhydronephrosis. GASTROINTESTINAL: Imaged large and small bowel are normal in caliber andwall thickness. FREE FLUID: None. VASCULATURE: The abdominal aorta is normal in caliber. LYMPH NODES: No abdominal retroperitoneal or mesenteric lymphadenopathy. LOWER CHEST: Heart is normal in size. The lung bases are clear. No pleuralor pericardial effusions. BONES: Extensive surgical hardware of the spine resulting insusceptibility artifact limiting assessment. Impression: 1. Redemonstrated intrahepatic and extra hepatic biliary dilation with theCBD again measuring approximately 9 mm. No biliary stricture, stone ormass is identified. 2. No distinct pancreatic mass or inflammatory process. No pancreaticductal dilation. 3. A 2.8 cm lesion is seen within hepatic segment 5, favored to representa cavernous hemangioma. Ordered By: MATTHEW RAMIREZ Interpreted By: Jere Ogden MD, 11/29/2024 11:22 AM Matthew Ramirez MD MRI Final Result * CT ABD+PEL W CON (11/05/2024 10:46 AM SAW MAN) Anatomical Region Laterality Modality Abdomen Computed Tomogra phy 11/05/2024 11:0 9 AM SAW MAN Impressions 11/05/2024 11:10 AM SAW MAN IMPRESSION: 1. There is nonspecific intrahepatic and extrahepatic biliary ductal dilatation in addition to dilation of the pancreatic duct. A follow-up MRCP/MRI of the pancreas is recommended for further evaluation. 2. No CT evidence of bowel obstruction. Referred By: MATTHEW RAMIREZ Interpreted By: Fabiola Juarez MD, 11/05/2024 11:09 AM Narrative 11/05/2024 11:10 AM SAW MAN [facility] [address] [facility] [address] [place] [address] PROCEDURE: XR CHEST PORTABLE HISTORY: Right upper quadrant pain. Weight loss. TECHNIQUE: Helical CT of the abdomen and pelvis was performed using non-ionic intravenous contrast (Isovue-370, 75 cc). Oral contrast partially opacifies the bowel. A dose lowering technique was used for this procedure, which may include, but is not limited to, dose reduction technique, automated exposure control, the use of iterative reconstruction, and ALARA (As Low As Reasonably Achievable) / Image Gently techniques. COMPARISON: None. FINDINGS CT ABDOMEN/PELVIS: Lower thorax: There is subsegmental atelectasis in the lower lobes. The heart is normal in size. Partially imaged bilateral breast implants. Liver: The liver is normal in size. There is no intrahepatic mass. Biliary tree: The gallbladder is present. There is intrahepatic and extrahepatic biliary ductal dilatation. The common bile measures up to 9 mm. Spleen: The spleen is normal in size. Pancreas: The main pancreatic duct is dilated measuring up to 3 mm at the level of the pancreatic body/tail. Adrenal glands: The adrenal glands are normal in size and shape. Kidneys: There are bilateral symmetric nephrograms without hydronephrosis. Lymph nodes: Abdomen: There is no abdominal adenopathy. Pelvis: There is no pelvic adenopathy. Vasculature: There is no abdominal aortic aneurysm. Atherosclerotic calcification is seen. Peritoneum/mesentery/omentum: There is no free fluid or free air. GI tract: There is no bowel obstruction. There is no abnormal bowel wall thickening to suggest acute inflammation. Pelvic urogenital structures:The bladder is grossly unremarkable. The uterus is not seen. There is no adnexal mass. Body wall: There are degenerative changes in the spine. No aggressive osseous lesions are identified. There is extensive postsurgical changes from prior thoracolumbosacral spinal fusion with bilateral rods and multiple pedicle screws. Jain: (S/I) = series number / image number Procedure Note Fabiola Juarez MD - 11/05/2024 [facility] [address] [place] [address] PROCEDURE: XR CHEST PORTABLE HISTORY: Right upper quadrant pain. Weight loss. TECHNIQUE: Helical CT of the abdomen and pelvis was performed usingnon-ionic intravenous contrast (Isovue-370, 75 cc). Oral contrastpartially opacifies the bowel. A dose lowering technique was used for this procedure, which may include,but is not limited to, dose reduction technique, automated exposurecontrol, the use of iterative reconstruction, and ALARA (As Low AsReasonably Achievable) / Image Gently techniques. COMPARISON: None. FINDINGS CT ABDOMEN/PELVIS: Lower thorax: There is subsegmental atelectasis in the lower lobes. Theheart is normal in size. Partially imaged bilateral breast implants. Liver: The liver is normal in size. There is no intrahepatic mass. Biliary tree: The gallbladder is present. There is intrahepatic andextrahepatic biliary ductal dilatation. The common bile measures up to 9mm. Spleen: The spleen is normal in size. Pancreas: The main pancreatic duct is dilated measuring up to 3 mm at thelevel of the pancreatic body/tail. Adrenal glands: The adrenal glands are normal in size and shape. Kidneys: There are bilateral symmetric nephrograms withouthydronephrosis. Lymph nodes: Abdomen: There is no abdominal adenopathy. Pelvis: There is no pelvic adenopathy. Vasculature: There is no abdominal aortic aneurysm. Atheroscleroticcalcification is seen. Peritoneum/mesentery/omentum: There is no free fluid or free air. GI tract: There is no bowel obstruction. There is no abnormal bowel wallthickening to suggest acute inflammation. Pelvic urogenital structures:The bladder is grossly unremarkable. Theuterus is not seen. There is no adnexal mass. Body wall: There are degenerative changes in the spine. No aggressiveosseous lesions are identified. There is extensive postsurgical changesfrom prior thoracolumbosacral spinal fusion with bilateral rods andmultiple pedicle screws. Jain: (S/I) = series number / image number IMPRESSION: 1. There is nonspecific intrahepatic and extrahepatic biliary ductaldilatation in addition to dilation of the pancreatic duct. A follow-upMRCP/MRI of the pancreas is recommended for further evaluation. 2. No CT evidence of bowel obstruction. Referred By: MATTHEW RAMIREZ Interpreted By: Fabiola Juarez MD, 11/05/2024 11:09 AM Matthew Ramirez MD CT Final Result * Pathology (10/16/2024 12:00 AM SAW MAN) PATHOLOGY [facility] Department of Laboratory Medicine [address] [place] [address] , extension [phone] Pathology Report Surgical Pathology Report Name: OLY PATIÑO Specimen #: [id number] Age: 1 1960 (Age: 63) Location: [facility] Sex: F Procedure Date: 10/16/2024 [facility] #: [id number] Date Received: 10/17/2024 Date Reported: 10/18/2024 Provider: MATTHEW RAMIREZ MD Source: A: Duodenum, biopsies B: Gastric biopsies C: Gastric, ulcer in cardia, biopsies D: GE junction, biopsies Clinical History: Constipation, unintentional weight loss, history of colon polyps, and GERD. FINAL DIAGNOSIS: A. Duodenum, endoscopic biopsy: -Small bowel mucosa without diagnostic abnormality. B. Stomach, endoscopic biopsy: -Fundictype mucosa without diagnostic abnormality. -No Helicobacter pylori organisms identified. C. Stomach, ulcer in cardia, endoscopic biopsy: -Fundictype mucosa without diagnostic abnormality. D. Esophagus, GE junction, endoscopic biopsy: -Focus of intestinal metaplasia in gastroesophageal junctiontype mucosa with mixed inflammation (see comment). Diagnosis Comment: The findings in the GE junction biopsy could represent either specialized Villafuerte's mucosa (if truly taken above the GE junction) or focal intestinal metaplasia of the gastric cardia. Correlation with endoscopic findings is required. There is no dysplasia. Gross Description: A. Received in formalin, labeled with a patient label and as duodenal biopsy are multiple pieces of [place] tissue that are 1 x 1 x 0.2 cm in aggregate. The specimen is entirely submitted in cassette A1. B. Received in formalin, labeled with a patient label and as gastric biopsy are 2 pieces of salinas tissue 0.1 and 0.3 cm. The specimen is entirely submitted in cassette B1. C. Received in formalin, labeled with a patient label and as gastric ulcers in the cardia is a 0.2 cm piece of [place]inas tissue. The specimen is entirely submitted in cassette C1. D. Received in formalin, labeled with a patient label and as GE junction biopsy are 3 pieces of [place]inas tissue ranging from 0.1 to 0.2 cm. The specimen is entirely submitted in cassette D1. Gross examination (when applicable), interpretation, and sign out were performed at [facility], [address] [place] [address]. Electronically Signed Out YARA FAIRCHILD MD [facility] TISSUE DUODENAL STRUCTURE / Unknown 10/16/2024 9:06 AM SAW MAN Tissue specimen (specimen) STOMACH STRUCTURE / Unknown 10/16/2024 9:06 AM SAW MAN Tissue specimen (specimen) STOMACH STRUCTURE / Unknown 10/16/2024 9:08 AM SAW MAN Tissue specimen (specimen) STOMACH STRUCTURE / Unknown 10/16/2024 9:09 AM SAW MAN us Matthew Ramirez MD PATHOLOGY/CYTOLOGY ORDERABLES Fi nal Result Performing Organization Address [facility] Co de Phone Number [facility] [address] [place] [address], [id number] * MAMMOGRAM GENERIC (12/08/2022) Anatomical Region Laterality Modality Other 12/08/2022 [facility] Scanned SCANNING Final Resu lt * HEPATITIS C ANTIBODY W/RFX TO HCV RNA (05/21/2021 12:35 PM CDT) HEPATITIS C AB NON-REACTI VE NON-REACT RANDOLPH [facility] SIGNAL TO CUTOFF 0.01 <[address] [facility] Comment: HCV antibody was non-reactive. There is no laboratory evidence of HCV infection. In most cases, no further action is required. However, if recent HCV exposure is suspected, a test for HCV RNA (test code 41232) is suggested. For additional information please refer to http://education.MarketShare/faq/DSX46m7 (This link is being provided for informational/ educational purposes only.) 05/21/2021 12:3 5 PM CDT 05/21/2021 12:36 PM CDT Narrative [facility] - 05/28/2021 8:16 AM CDT FASTING:YES FASTING: YES [facility] Final Result [facility] [address] [place] [address] * COLONOSCOPY GENERIC (03/31/2020) 03/31/2020 Narrative 03/31/2020 Ordered by an unspecified provider. us Documents Scanned SCANNING Final Result from Last 3 Months or Most Recently Relevant to Health Maintenance Insurance [facility] Care Teams Music Critic Relationship Specialty Start Date End Date Merle Raymundo FNP [address] [place] [address] PCP - General Nurse Practitioner Family 04/16/19
--- OUTSIDE RECORDS SUMMARY | 2025-01-02 10:38 | XMS_ITS | Encounter Summary ---
Author Organization [facility] Address 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
--- OUTSIDE RECORDS SUMMARY | 2025-01-02 10:38 | XMS_ITS | Encounter Summary ---
Author Organization [facility] Address [address] [place] [address] Care Team Providers Care Sales Operations Analyst Name Role Phone Unavailable Primary Care Provider Unavailabl e Encounter Details Date Type Department Care Team (Late st Contact Info) Description 07/11/2000 Outpatient Historical [facility] [address] [facility] 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
--- OUTSIDE RECORDS SUMMARY | 2025-01-02 10:38 | XMS_ITS | Encounter Summary ---
Author Organization [facility] Address [address] [place] [address] Care Team Providers Care Sprayer Leather Name Role Phone Merle Raymundo SYBIL Primary Care Provider [phone] Encounter Details Date Type Department Care Team (Late Contact Info) Description 05/26/2021 [facility] [address] [address] Lili Plascencia [place] Social History Tobacco Use Types Packs/Day Years Used Date Smoking Tobacco: Every Day Cigarettes 1 22 Smokeless Tobacco: Never Comments:provider to assistant corporation counsel Alcohol Use Standard Drinks/Week Comments No 0 (1 standard drink = 0.6 oz pur e alcohol) AUDIT-C Answer Date Recorded Frequency of Alcohol Consumption Never 04/16/2019 Average Number of Drinks Not on file 019 Frequency of Binge Drinking Not on file 03/30 PHQ-2 Answer Date Recorded PHQ-2 Score - If the patient scores above 3, please move on to questions 3-9 0 05/07/2021 Comments No Sex and Gender Information Value Date Recorded Sex Assigned at Female 12/04/2024 3:40 PM ACCESS MANAGER Legal Sex Female 5:58 PM CDT Gender Identity Not on file Sexual Orientation Not on file COVID-19 Exposure Response Date Recorded In the last month, have you been in contact with someone who was confirmed or suspected to have Coronavirus / COVID-19? No / Unsure 05/26/2021 10:31 AM CDT documented as of this encounter Plan of Treatment Upcoming Encounters Date Type Department Care Team (Late Contact Info) Description 01/03/2025 3:00 PM ACCESS MANAGER Office Visit [facility] [place] [address] [place] [address] Iam Ramirez MD [address] [place] [address] 01/28/2025 8:40 AM CDT Office Visit [facility] Family & Internal Medicine [id number] [place] [address] Merle Raymundo, JOURNEYMAN ELECTRICIAN PV INSTALLER [address] [place] [address] documented as of this encounter Procedures Procedure Name Priority Date/Time Associated Diagnosis Comments FOLATE (OUTSIDE LAB) Routine 05/21/2021 FOLATE (OUTSIDE LAB) Routine 05/21/2021 CBC (OUTSIDE LAB) Routine 05/21/2021 CBC (OUTSIDE LAB) Routine 05/21/2021 VITAMIN B-12 Routine 05/21/2021 VITAMIN B-12 Routine 05/21/2021 COMPREHENSIVE METABOLIC PANEL Routine 05/21/2021 COMPREHENSIVE METABOLIC PANEL Routine 05/21/2021 LIPID PANEL Routine 05/21/2021 LIPID PANEL Routine 05/21/2021 THYROID STIM HORMONE TSH Routine 05/21/2021 THYROID STIM HORMONE TSH Routine 05/21/2021 VITAMIN D, 25 OH Routine 05/21/2021 URIC ACID BLOOD Routine 05/21/2021 URIC ACID BLOOD Routine 05/21/2021 documented in this encounter Results * FOLATE (OUTSIDE LAB) (05/21/2021) Pathologist [facility] FOLATE >24 05/21/2021 us Doc [facility] LAB-OUTSIDE/ABSTRACTED Final Result * VITAMIN B-12 (05/21/2021) Pathologist [facility] VITAMIN B12 S/P/B 1,676 200 - 1,100 05/21/2021 us Doc [facility] LABORATORY Final Result * CBC (OUTSIDE LAB) (05/21/2021) Pathologist [facility] WBC 7.6 HGB 10.6 HCT 31.3 PLT 274 05/21/2021 us Doc [facility] LAB-OUTSIDE/ABSTRACTED Final Result * THYROID STIM HORMONE, TSH (05/21/2021) Pathologist [facility] TSH 0.59 05/21/2021 us Doc [facility] LABORATORY Final Result * URIC ACID BLOOD (05/21/2021) Pathologist [facility] URIC ACID 4.1 05/21/2021 us Doc [facility] Final Result * VITAMIN D, 25 OH (05/21/2021) Pathologist [facility] VITAMIN D 25 HYDROXY S/P/B 98.5 05/21/2021 us Doc [facility] LABORATORY Final Result * (ABNORMAL) COMPREHENSIVE METABOLIC PANEL (05/21/2021) Pathologist [facility] SODIUM S/P/B 135 POTASSIUM S/P/B 4.1 CO2 26 CHLORIDE S/P/B 102 GLUCOSE 79 mg/dL CALCIUM S/P/B 8.5 BUN 14 CREATININE S/P/B 1.13(A) 0.5 - 1.0 EGFR AFR. AMER. 62 <=90 EGFR NON-AFR. AMER. 53 <=90 ALKALINE PHOSPHATASE S/P/B 45 ALT 17 AST 18 BILIRUBIN TOTAL S/P/B 0.4 ALBUMIN S/P/B 4.2 3.5 - 5.0 TOTAL PROTEIN S/P/B 6.5 GLOBULIN 2.3 05/21/2021 us Doc [facility] Final Result * LIPID PANEL (05/21/2021) [facility] CHOLESTEROL 220 HDL 59 TRIGLYCERIDES 135 NON HDL CHOLESTEROL 161 LDL (CALCULATED) 135 05/21/2021 us Doc [facility] Final Result * FOLATE (OUTSIDE LAB) (05/21/2021) [facility] FOLATE >24 05/21/2021 us Doc [facility] LAB-OUTSIDE/ABSTRACTED Final Result * VITAMIN B-12 (05/21/2021) [facility] VITAMIN B12 S/P/B 1,676 200 - 1,100 05/21/2021 us Doc [facility] Final Result * CBC (OUTSIDE LAB) (05/21/2021) [facility] WBC 7.6 HGB 10.6 HCT 31.3 PLT 274 05/21/2021 us Doc [facility] LAB-OUTSIDE/ABSTRACTED Final Result * THYROID STIM HORMONE, TSH (05/21/2021) TSH 0.59 05/21/2021 us Doc [facility] Final Result * URIC ACID BLOOD (05/21/2021) URIC ACID 4.1 05/21/2021 us Doc [facility] Final Result * (ABNORMAL) COMPREHENSIVE METABOLIC PANEL (05/21/2021) SODIUM S/P/B 135 POTASSIUM S/P/B 4.1 CO2 26 CHLORIDE S/P/B 102 GLUCOSE 79 mg/dL CALCIUM S/P/B 8.5 BUN 14 CREATININE S/P/B 1.13(A) 0.5 - 1.0 EGFR AFR. AMER. 62 <=90 EGFR NON-AFR. AMER. 53 <=90 ALKALINE PHOSPHATASE S/P/B 45 ALT 17 AST 18 BILIRUBIN TOTAL S/P/B 0.4 ALBUMIN S/P/B 4.2 3.5 - 5.0 TOTAL PROTEIN S/P/B 6.5 GLOBULIN 2.3 05/21/2021 us Doc [facility] Final Result * LIPID PANEL (05/21/2021) CHOLESTEROL 220 HDL 59 TRIGLYCERIDES 135 NON HDL CHOLESTEROL 161 LDL (CALCULATED) 135 05/21/2021 us Doc [facility] Final Result documented in this encounter Visit Diagnoses Not on filedocumented in this encounter Additional Health Concerns Assessment Noted Time PHQ-9 Depression Total Score: 1 05/07/20 21 7:54 AM CDT documented as of this encounter Care Teams Sprayer Leather Relationship Specialty Start Date End Date Merle Raymundo FNP [address] [place] [address] PCP - General Nurse Practitioner Family 04/16/19 documented as of this encounter
--- OUTSIDE RECORDS SUMMARY | 2025-01-02 10:38 | XMS_ITS | Clinical Summary ---
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
--- OUTSIDE RECORDS SUMMARY | 2025-01-02 10:39 | XMS_ITS | Encounter Summary ---
Author Organization [facility] Address [id number] [place] [address] Care Team Providers Care Executive Account Manager Name Role Phone Merle Raymundo SYBIL Primary Care Provider [phone] Encounter Details Date Type Department Care Team (Late st Contact Info) Description 05/12/2024 [employer] Message Enc [facility] [address] [place], [place] [id number] Denise Drake MD Three [facility] [address] [place], [place] [phone] Appointment time and date Social History Tobacco Use Types Packs/Day Years Used Date Smoking Tobacco: Every Day Cigarettes 1 12 Passive Smoke Exposure: Current Smokeless Tobacco: Never Comments:provider to equal opportunity counselor : Benefits of smoking cessation reviewed with patient, recommended she quit smoking. Alcohol Use Standard Drinks/Week Comments No 0 (1 standard drink = 0.6 oz pur e alcohol) AUDIT-C Answer Date Recorded Frequency of Alcohol Consumption Never 04/16/2019 Average Number of Drinks Not on file 019 Frequency of Binge Drinking Not on file 03/30 PHQ-2 Answer Date Recorded Patient Health Questionnaire-2 Score 1 01/25/2024 Education Answer Date Recorded What is the highest level of school you have completed or the highest degree you have received? Bachelor's degree (e.g., BA, AB, BS) 07/29/2021 Comments No Sex and Gender Information Value Date Recorded Sex Assigned at Female 12/04/2024 3:40 PM CONSTRUCTION SAFETY MANAGER Legal Sex Female 5:58 PM CDT Gender Identity Not on file Sexual Orientation Not on file documented as of this encounter Plan of Treatment Upcoming Encounters Date Type Department Care Team (Late st Contact Info) Description 01/03/2025 3:00 PM CONSTRUCTION SAFETY MANAGER Office Visit [facility] [address] [phone] Iam Ramirez MD [address] [place] [address] 01/28/2025 8:40 AM CDT Office Visit [facility] Family & Internal Medicine [address] [address] Merle Raymundo FNP [facility] [place] [address] documented as of this encounter Visit Diagnoses Not on filedocumented in this encounter Additional Health Concerns Assessment Noted Time PHQ-9 Depression Total Score: 2 01/25/20 24 1:58 PM CDT documented as of this encounter Care Teams Executive Account Manager Relationship Specialty Start Date End Date Merle Raymundo FNP [address] [place] [phone] PCP - General Nurse Practitioner Family 04/16/19 documented as of this encounter
--- OUTSIDE RECORDS SUMMARY | 2025-01-02 10:39 | XMS_ITS | Encounter Summary ---
Author Organization [facility] Address [facility] [place] [address] Care Team Providers Care Lockstitch Tunnel Elastic Operator Name Role Phone Merle Raymundo SYBIL Primary Care Provider [phone] Encounter Details Date Type Department Care Team (Late Contact Info) Description 04/26/2023 MyChart Message Enc [facility] [address] [place] [address] [employer], [facility] Provider Air Quality Message Social History Tobacco Use Types Packs/Day Years Used Date Smoking Tobacco: Every Day Cigarettes 1 12 Smokeless Tobacco: Never Comments:provider to delinquency counselor : Benefits of smoking cessation reviewed [...] Date Recorded Patient Health Questionnaire-2 Score 0 02/24/2023 Education Answer Date Recorded What is the highest level of school you have completed or the highest degree you have received? Bachelor's degree (e.g., BA, AB, BS) 07/29/2021 Comments No Sex and Gender Information Value Date Recorded Sex Assigned at Female 12/04/2024 3:40 PM STORES DESPATCH HAND Legal Sex Female 5:58 PM CDT Gender Identity Not on file Sexual Orientation Not on file documented as of this encounter Plan of Treatment Upcoming Encounters Date Type Department Care Team (Late Contact Info) Description 01/03/2025 3:00 PM STORES DESPATCH HAND Office Visit [facility] [place] [address] [place] [address] Iam Ramirez MD [address] [place] [address] 01/28/2025 8:40 AM CDT Office Visit [facility] Family & Internal Medicine - [address] [address] Merle Raymundo FNP [address] [place] [address] documented as of this encounter Visit Diagnoses Not on filedocumented in this encounter Additional Health Concerns Assessment Noted Time PHQ-9 Depression Total Score: 0 02/25/20 23 10:23 AM CDT documented as of this encounter Care Teams Lockstitch Tunnel Elastic Operator Relationship Specialty Start Date End Date Merle Raymundo FNP [address] [place] [address] PCP - General Nurse Practitioner Family 04/16/19 documented as of this encounter
--- OUTSIDE RECORDS SUMMARY | 2025-01-02 10:39 | XMS_ITS | Encounter Summary ---
Author Organization [facility] Address [address] [place] [address] Care Team Providers Care Test Hole Driller Name Role Phone Merle Raymundo Primary Care Provider [phone] Encounter Details Date Type Department Care Team (Late st Contact Info) Description 07/27/2023 Gondolat Message Enc [facility] Medical Group Family & Internal Medicine [address] [place] [address] Merle Raymundo FNP [facility] [place], [place] [phone] Prescription Social History Tobacco Use Types Packs/Day Years Used Date Smoking Tobacco: Every Day Cigarettes 1 12 Smokeless Tobacco: Never Comments:provider to food counselor : Benefits of smoking cessation reviewed [...] Sex Assigned at Female 12/04/2024 3:40 PM BACTERIOLOGIST INDUSTRIAL Legal Sex Female 5:58 PM CDT Gender Identity Not on file Sexual Orientation Not on file documented as of this encounter Progress Notes * SYBIL Carranza - 07/27/2023 4:50 PM CDT yes documented in this encounter Plan of Treatment Upcoming Encounters Date Type Department Care Team (Late st Contact Info) Description 01/03/2025 3:00 PM BACTERIOLOGIST INDUSTRIAL Office Visit [facility] Medical [facility]ty Clinic [address] [phone] Iam Ramirez MD [address] [place] [address] 01/28/2025 8:40 AM CDT Office Visit [facility] Family & Internal Medicine [address] [address] Merle Raymundo FNP [address] [place] [address] documented as of this encounter Visit Diagnoses Not on filedocumented in this encounter Additional Health Concerns Assessment Noted Time PHQ-9 Depression Total Score: 0 02/25/20 23 10:23 AM CDT documented as of this encounter Care Teams Test Hole Driller Relationship Specialty Start Date End Date Merle Raymundo FNP [address] [place] [address] PCP - General Nurse Practitioner Family 04/16/19 documented as of this encounter
--- OUTSIDE RECORDS SUMMARY | 2025-01-02 10:39 | XMS_ITS | Encounter Summary ---
Author Organization [facility] Address [address] [place] [address] Care Team Providers Care Clinical Services Assistant Name Role Phone Unavailable Primary Care Provider Unavailabl e Encounter Details Date Type Department Care Team (Late st Contact Info) Description 01/21/2003 Outpatient Historical [facility] [address] [facility] [address] [place] [address] Campos Caba (Two) Social History Tobacco Use Types Packs/Day Years Used Date Smoking Tobacco: Never Assessed Comments Unknown Sex and Gender Information Value Date Recorded Sex Assigned at Not on file Legal Sex Female 3:16 AM STRIKE OFF MACHINE OPERATOR Gender Identity Not on file Sexual Orientation Not on file documented as of this encounter Plan of Treatment Not on file documented as of this encounter Visit Diagnoses Not on filedocumented in this encounter
--- OUTSIDE RECORDS SUMMARY | 2025-01-02 10:39 | XMS_ITS | Encounter Summary ---
Author Organization [facility] Address [address] [place] [address] Care Team Providers Care Needle Grinder Name Role Phone Merle Raymundo SYBIL Primary Care Provider [phone] Encounter Details Date Type Department Care Team (Late st Contact Info) Description 04/26/2024 [employer] Message Enc [facility] [place], [place] [phone] [id number] Denise Drake MD [facility] [address] [place] [address] Make another appointment Social History Tobacco Use Types Packs/Day Years Used Date Smoking Tobacco: Every Day Cigarettes 1 12 Smokeless Tobacco: Never Comments:provider to area counselor : Benefits of smoking cessation reviewed [...] Sex Assigned at Female 12/04/2024 3:40 PM RN HOSPITAL Legal Sex Female 5:58 PM CDT Gender Identity Not on file Sexual Orientation Not on file documented as of this encounter Plan of Treatment Upcoming Encounters Date Type Department Care Team (Late st Contact Info) Description 01/03/2025 3:00 PM RN HOSPITAL Office Visit [facility] G[facility] Specialty Clinic [address] [address] Iam Ramirez MD [address] [place] [address] 01/28/2025 8:40 AM CDT Office Visit [facility] Family & Internal Medicine [address] [address] Merle Raymundo FNP [address] [place] [address] documented as of this encounter Visit Diagnoses Not on filedocumented in this encounter Additional Health Concerns Assessment Noted Time PHQ-9 Depression Total Score: 2 01/25/20 24 1:58 PM CDT documented as of this encounter Care Teams Needle Grinder Relationship Specialty Start Date End Date Merle Raymundo FNP [address] [place] [address] PCP - General Nurse Practitioner Family 04/16/19 documented as of this encounter
--- OUTSIDE RECORDS SUMMARY | 2025-01-02 10:39 | XMS_ITS | Encounter Summary ---
Author Organization [facility] Address [address] [place] [address] Care Team Providers Care Manager Privacy Name Role Phone Unavailable Primary Care Provider Unavailabl e Encounter Details Date Type Department Care Team (Late st Contact Info) Description 03/14/2005 Outpatient Historical [facility] [address] [facility] [address] [place] [address] Campos Caba (Two) Social History Tobacco Use Types Packs/Day Years Used Date Smoking Tobacco: Never Assessed Comments Unknown Sex and Gender Information Value Date Recorded Sex Assigned at Not on file Legal Sex Female 3:16 AM FIRE CONTROL OFFICER Gender Identity Not on file Sexual Orientation Not on file documented as of this encounter Plan of Treatment Not on file documented as of this encounter Visit Diagnoses Not on filedocumented in this encounter
--- OUTSIDE RECORDS SUMMARY | 2025-01-02 10:39 | XMS_ITS | Encounter Summary ---
Author Organization [facility] Address [address] [place] [address] Care Team Providers Care Registered Route Associate Name Role Phone Unavailable Primary Care Provider Unavailabl e Encounter Details Date Type Department Care Team (Late st Contact Info) Description 12/08/2003 Outpatient Historical [facility] [address] [facility] [address] [place] [address] Campos Caba (Two) Social History Tobacco Use Types Packs/Day Years Used Date Smoking Tobacco: Never Assessed Comments Unknown Sex and Gender Information Value Date Recorded Sex Assigned at Not on file Legal Sex Female 3:16 AM CHIEF ESTIMATOR Gender Identity Not on file Sexual Orientation Not on file documented as of this encounter Plan of Treatment Not on file documented as of this encounter Visit Diagnoses Not on filedocumented in this encounter
--- OUTSIDE RECORDS SUMMARY | 2025-01-02 10:39 | XMS_ITS | Encounter Summary ---
Author Organization [facility] Address [address] [place] [address] Care Team Providers Care Tax Accounting Assistant Name Role Phone Merle Raymundo Primary Care Provider [phone] Encounter Details Date Type Department Care Team (Late st Contact Info) Description 02/24/2023 [employer] Message Enc [facility] Medical Group Family & Internal Medicine [address] [place] [address] Merle Raymundo FNP [facility] [place], [place] [phone] [employer] Social History Tobacco Use Types Packs/Day Years Used Date Smoking Tobacco: Every Day Cigarettes 1 12 Smokeless Tobacco: Never Comments:provider to tour counselor : Benefits of smoking cessation reviewed [...] Sex Assigned at Female 12/04/2024 3:40 PM CHIEF DIGITAL OFFICER Legal Sex Female 5:58 PM CDT Gender Identity Not on file Sexual Orientation Not on file COVID-19 Exposure Response Date Recorded In the last 10 days, have monalisa u been in contact with someone who was confirmed or suspected to have Coronavirus/COVID-19? No / Unsure 02/24/2023 10:00 AM CDT documented as of this encounter Plan of Treatment Upcoming Encounters Date Type Department Care Team (Late st Contact Info) Description 01/03/2025 3:00 PM CHIEF DIGITAL OFFICER Office Visit [facility] Gastroenterology Specialty Clinic [address] [address] Iam Ramirez MD [address] [place] [address] 01/28/2025 8:40 AM CDT Office Visit [facility] Family & Internal Medicine [address] [address] Merle Raymundo FNP [address] [place] [address] documented as of this encounter Visit Diagnoses Not on filedocumented in this encounter Additional Health Concerns Assessment Noted Time PHQ-9 Depression Total Score: 0 02/25/20 23 10:23 AM CDT documented as of this encounter Care Teams Tax Accounting Assistant Relationship Specialty Start Date End Date Merle Raymundo FNP [address] [place] [address] PCP - General Nurse Practitioner Family 04/16/19 documented as of this encounter
--- OUTSIDE RECORDS SUMMARY | 2025-01-02 10:39 | XMS_ITS | Encounter Summary ---
Author Organization [facility] Address [address] [place] [address] Care Team Providers Care Eligibility Manager Name Role Phone Merle Raymundo Primary Care Provider [phone] Encounter Details Date Type Department Care Team (Late st Contact Info) Description 02/06/2024 [employer] Message Enc [facility] Medical Group Family & Internal Medicine [address] [place] [address] Merle Raymundo FNP [address] [place], [place] [phone] Design Engineer Agricultural Equipment Social History Tobacco Use Types Packs/Day Years Used Date Smoking Tobacco: Every Day Cigarettes 1 12 Smokeless Tobacco: Never Comments:provider to pet adoption counselor : Benefits of smoking cessation reviewed [...] Sex Assigned at Female 12/04/2024 3:40 PM DOCUMENTATION CONSULTANT Legal Sex Female 5:58 PM CDT Gender Identity Not on file Sexual Orientation Not on file documented as of this encounter Plan of Treatment Upcoming Encounters Date Type Department Care Team (Late st Contact Info) Description 01/03/2025 3:00 PM DOCUMENTATION CONSULTANT Office Visit [facility]astro[facility]ology Specialty Clinic [address] [address] Iam Ramirez MD [address] [place] [address] 01/28/2025 8:40 AM CDT Office Visit [facility] Family & Internal Medicine [address] [address] Merle Raymundo FNP [address] [place] [address] documented as of this encounter Visit Diagnoses Not on filedocumented in this encounter Additional Health Concerns Assessment Noted Time PHQ-9 Depression Total Score: 2 01/25/20 24 1:58 PM CDT documented as of this encounter Care Teams Eligibility Manager Relationship Specialty Start Date End Date Merle Raymundo FNP [address] [place] [address] PCP - General Nurse Practitioner Family 04/16/19 documented as of this encounter
[2025-01-02] MEDS: KETOROLAC 30 MG/ML VIAL (*BKC) IV PUSH (11:45)
[2025-01-02 11:50] VITALS: BP 140/88; PULSE 64; RESP 18; O2SAT 97
== END 2025-01-02 11:51 | disposition home or self-care (01) ==
PROVIDERS: Emergency Medicine; Emergency Provider Physician Assistant; PCP Nurse Practitioner Family
DX: J06.9 Acute upper respiratory infection, unspecified (principal); R07.89 Other chest pain; Z20.822 Contact with and (suspected) exposure to COVID-19; E03.9 Hypothyroidism, unspecified; I34.1 Nonrheumatic mitral (valve) prolapse; J45.909 Unspecified asthma, uncomplicated; F41.9 Anxiety disorder, unspecified; Z98.1 Arthrodesis status; Z87.891 Personal history of nicotine dependence; Z90.710 Acquired absence of both cervix and uterus; Z79.899 Other long term (current) drug therapy
CPT/HCPCS: 36415; 71046; 71275; 80053; 84484; 85025; 85380; 87637; 93005; 96374; 99284; A9270; J1885; Q9967

== ENCOUNTER 2025-03-11 13:43 | Outpatient (CLI) | payer BC, SELFPAY ==
--- NOTE | ~2025-03-11 | MM_ITS ---
EXAMINATION: MM scrn jean claude implant BI w cortes HISTORY: Screening mammogram TECHNIQUE: Craniocaudal and mediolateral oblique 3-D tomosynthesis images with implant displacement a nd synthetic 2-D images were generated. Craniocaudal and mediolateral oblique views of the breasts wi thout implant displacement were obtained using full field digital mammography. CAD analysis was submi tted and interpreted. COMPARISON: Comparison to multiple prior studies sequentially, with oldest reviewed study dated 07/21. BREAST PARENCHYMAL COMPOSITION: Not dense: There are scattered areas of fibroglandular density. FINDINGS: There are bilateral subpectoral breast implants. There is no evidence of suspicious mass, c alcification, or architectural distortion to suggest malignancy in either breast. There has been no s uspicious interval change. IMPRESSION: 1. No mammographic evidence of malignancy. 2. Recommend routine screening mammography in one year. BI-RADS Category 1: Negative Reviewed, dictated and finalized at location A.
--- OUTSIDE RECORDS SUMMARY | 2025-03-11 14:00 | XMS_ITS | Patient Health Record ---
Author Organization [employer] Address [address] [facility] [address] [place], [place] [address] Care Team Providers Care Industrial Therapist Name Role Phone JEANETTE ROJAS MD Primary Care Provider Unavaila Khushi Bhat Unavailable [phone] REASON FOR REFERRAL No Information PLAN OF TREATMENT No Information Insurance Providers Payer Name Payer Address Payer Phone Subscriber Number Group Number Insured Name Patient Relationship to Insured Coverage Start Date Coverage End Date [facility] [address] [place] [id number] Oly Patiño Self - patient is the insured 2008
--- OUTSIDE RECORDS SUMMARY | 2025-03-11 14:00 | XMS_ITS | Encounter Summary ---
Author Organization [facility] Address [address] [place] [address] Care Team Providers Care Supervisor Pre Wave Name Role Phone Unavailable Primary Care Provider Unavailabl e Encounter Details Date Type Department Care Team (Late st Contact Info) Description 05/24/1999 Outpatient Historical [facility] Headache Center [address] [facility] [address] [place] [address] Campos Caba (Two) Social History Tobacco Use Types Packs/Day Years Used Date Smoking Tobacco: Never Assessed Comments Unknown Sex and Gender Information Value Date Recorded Sex Assigned at Not on file Legal Sex Female 3:16 AM RESEARCH PROGRAM ASSISTANT Gender Identity Not on file Sexual Orientation Not on file documented as of this encounter Plan of Treatment Not on file documented as of this encounter Visit Diagnoses Not on filedocumented in this encounter
--- OUTSIDE RECORDS SUMMARY | 2025-03-11 14:00 | XMS_ITS | Encounter Summary ---
Author Organization [facility] Address [address] [place] [address] Care Team Providers Care Charge Account Identification Clerk Name Role Phone Unavailable Primary Care Provider Unavailabl e Encounter Details Date Type Department Care Team (Late st Contact Info) Description 01/27/2000 Outpatient Historical [facility] Headache [facility] [address] [facility] [address] [place] [address] Campos Caba (Two) Social History Tobacco Use Types Packs/Day Years Used Date Smoking Tobacco: Never Assessed Comments Unknown Sex and Gender Information Value Date Recorded Sex Assigned at Not on file Legal Sex Female 3:16 AM LASTEX OPERATOR Gender Identity Not on file Sexual Orientation Not on file documented as of this encounter Plan of Treatment Not on file documented as of this encounter Visit Diagnoses Not on filedocumented in this encounter
--- OUTSIDE RECORDS SUMMARY | 2025-03-11 14:00 | XMS_ITS | Encounter Summary ---
Author Organization [facility] Address [address] [place] [address] Care Team Providers Care Oracle Adf Developer Name Role Phone Unavailable Primary Care Provider Unavailabl e Encounter Details Date Type Department Care Team (Late st Contact Info) Description 11/08/1999 Outpatient Historical [facility] Headache Center [address] [facility] [address] [place] [address] Campos Caba (Two) Social History Tobacco Use Types Packs/Day Years Used Date Smoking Tobacco: Never Assessed Comments Unknown Sex and Gender Information Value Date Recorded Sex Assigned at Not on file Legal Sex Female 3:16 AM PHARMACOVIGILANCE SAFETY EXPERT Gender Identity Not on file Sexual Orientation Not on file documented as of this encounter Plan of Treatment Not on file documented as of this encounter Visit Diagnoses Not on filedocumented in this encounter
--- OUTSIDE RECORDS SUMMARY | 2025-03-11 14:00 | XMS_ITS | Clinical Summary ---
Author Organization [facility] Address [address] [place], [address] [address] Phone Care Team Providers Care Rover Tender Name Role Phone Merle Raymundo APRN, HRBP Primary Care Provider Allergies No known active [...] Cologuard 2011 Immunochemical Fecal Occult Blood 2011 Pneumococcal Immunization (5 0+ years) (2 [...] Procedure Name Priority Date/Time Associated Diagnosis Comments COLONOSCOPY Routine 09/27/2017 from Last 3 Months or Most Recently Relevant to Health Maintenance Results * HM COLONOSCOPY (09/27/2017) us Not On File Provider PROCEDURE/MINOR SURGICAL OR DERABLES Final Result from Last 3 Months or Most Recently Relevant to Health Maintenance Insurance [facility] Care Teams Rover Tender Relationship Specialty Start Date End Date Merle Raymundo, INFORMATICS EDUCATOR, HRBP [address] [place] [address] PCP - General Internal Medicine 11/08/16
--- OUTSIDE RECORDS SUMMARY | 2025-03-11 14:00 | XMS_ITS ---
Author Organization [facility] Address [address] [place], [place] [phone] Care Team Providers Care Records Custodian Name Role Phone Merle Raymundo Unavailable Unavailable [address] Unavailable [phone] REASON FOR VISIT *Fungal nail check Encounters Encounter Location Date Provider Diagnosis [facility] [place] [place], [place] [id number] 02/19/[address] Plan Of Treatment No Information Progress Notes * Lucia PATIÑOOB: 2 (64 yo F)Acc No.[id number]:02/19/2024 Patient: Oly ALEXANDER Provider: Roxanna Street DPM :1960 A ge:63 Y S ex:Female Date:02/19/2024 Address:[address] [place], [place] [address] Subjective: * Chief Complaints: * 1 . *Fungal nail check. * Medical History: Objective: * Vitals: Assessment: Plan: * Treatment: * Billing Information: * Visit Code: * Procedure Codes: * Electronic signature of TASHIA STRE[address] DPM on 03/11/2025 at 02:00 PM CDT Sign off status: Pending * Provider: Roxanna Street DPM Date: 02/19/2024 Generated for Printi ng/Faxing/eTransmitting on: 03/11/2025 02:00 PM CDT
--- OUTSIDE RECORDS SUMMARY | 2025-03-11 14:00 | XMS_ITS | Encounter Summary ---
Author Organization [facility] Address [address] [place] [address] Care Team Providers Care Emergency Service Worker Name Role Phone Unavailable Primary Care Provider Unavailabl e Encounter Details Date Type Department Care Team (Late st Contact Info) Description 07/11/2000 Outpatient Historical [facility] Headache Center [address] [facility] [address] [place] [address] Campos Caba (Two) Social History Tobacco Use Types Packs/Day Years Used Date Smoking Tobacco: Never Assessed Comments Unknown Sex and Gender Information Value Date Recorded Sex Assigned at Not on file Legal Sex Female 3:16 AM SOUR BLEACHING PLEATER Gender Identity Not on file Sexual Orientation Not on file documented as of this encounter Plan of Treatment Not on file documented as of this encounter Visit Diagnoses Not on filedocumented in this encounter
--- OUTSIDE RECORDS SUMMARY | 2025-03-11 14:01 | XMS_ITS | Encounter Summary ---
Author Organization [facility] Address [address] [place] [address] Care Team Providers Care Fermenting Cellar Dropper Name Role Phone Merle Raymundo Primary Care Provider [phone] Encounter Details Date Type Department Care Team (Late st Contact Info) Description 02/26/2025 Healthagent Message Enc [facility] Family & Internal Medicine [id number] [place] [address] Merle Raymundo FNP Formerly named [facility] [place], [place] [id number] MRI Social History Tobacco Use Types Packs/Day Years Used Date Smoking Tobacco: Every Day Cigarettes 1 12 Passive Smoke Exposure: Current Smokeless Tobacco: Never Comments:provider to career counselor : Benefits of smoking cessation reviewed [...] Sex Assigned at Female 12/04/2024 3:40 PM DIESEL ENGINE SPECIALIST Legal Sex Female 5:58 PM CDT Gender Identity Not on file Sexual Orientation Not on file documented as of this encounter Plan of Treatment Upcoming Encounters Date Type Department Care Team (Late st Contact Info) Description 03/28/2025 2:40 PM CDT Office Visit [facility] [address] [phone] Iam Ramirez MD [address] [place] [address] documented as of this encounter Visit Diagnoses Not on filedocumented in this encounter Additional Health Concerns Assessment Noted Time PHQ-9 Depression Total Score: 0 07/16/20 24 8:08 AM CDT documented as of this encounter Care Teams Fermenting Cellar Dropper Relationship Specialty Start Date End Date Merle Raymundo FNP [address] [place] [address] PCP - General Nurse Practitioner Family 04/16/19 documented as of this encounter
--- OUTSIDE RECORDS SUMMARY | 2025-03-11 14:01 | XMS_ITS | Encounter Summary ---
Author Organization [facility] Address [address] [place] [address] Care Team Providers Care Journeyman Lineman Name Role Phone Merle Raymundo SYBIL Primary Care Provider [phone] Encounter Details Date Type Department Care Team (Late st Contact Info) Description 01/21/2022 Returbo Message Enc [facility] Family & Internal Medicine [address] [phone] Susan, [facility] Provider Ultram Social History Tobacco Use Types Packs/Day Years Used Date Smoking Tobacco: Every Day Cigarettes 1 12 Smokeless Tobacco: Never Comments:provider to outreach counselor : Benefits of smoking cessation reviewed [...] Sex Assigned at Female 12/04/2024 3:40 PM IP/MOSAIC TECHNICIAN Legal Sex Female 5:58 PM CDT Gender [...] Description 03/28/2025 2:40 PM CDT Office Visit [facility] [address] [phone] Iam Ramirez MD [address] [place] [address] documented as of this encounter Visit Diagnoses Not on filedocumented in this encounter Additional Health Concerns Assessment Noted Time PHQ-9 Depression Total Score: 2 01/08/20 22 10:04 AM IP/MOSAIC TECHNICIAN documented as of this encounter Care Teams Journeyman Lineman Relationship Specialty Start Date End Date Merle Raymundo FNP [address] [place] [address] PCP - General Nurse Practitioner Family 04/16/19 documented as of this encounter
--- OUTSIDE RECORDS SUMMARY | 2025-03-11 14:01 | XMS_ITS | Encounter Summary ---
Author Organization [facility] Address [address] [place] [address] Care Team Providers Care Tool Programmer Name Role Phone Merle Raymundo SYBIL Primary Care Provider [phone] Encounter Details Date Type Department Care Team (Late Contact Info) Description 05/26/2021 [facility] [address] [address] Lili Plascencia MA Social History Tobacco Use Types Packs/Day Years Used Date Smoking Tobacco: Every Day Cigarettes 1 22 Smokeless Tobacco: Never Comments:provider to family counselor Alcohol Use Standard Drinks/Week Comments No 0 [...] Sex Assigned at Female 12/04/2024 3:40 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 Gastroenterology Specialty Clinic [place] [address] [place] [address] Iam Ramirez MD [address] [place] [address] documented as of this encounter Procedures Procedure [...] encounter Results * FOLATE (OUTSIDE LAB) (05/21/2021) FOLATE >24 05/21/2021 us [facility] Abstract LAB-OUTSIDE/ABSTRACTED Final Result * VITAMIN B-12 (05/21/2021) Pathologist [facility] VITAMIN B12 S/P/B 1,676 200 - 1,100 05/21/2021 us Doc [facility] Abstract LABORATORY Final Result * CBC (OUTSIDE LAB) (05/21/2021) Pathologist [facility] WBC 7.6 HGB 10.6 HCT 31.3 PLT 274 05/21/2021 us Doc [facility] Abstract LAB-OUTSIDE/ABSTRACTED Final Result * THYROID STIM HORMONE, TSH (05/21/2021) Pathologist [facility] TSH 0.59 05/21/2021 us Doc [facility] Abstract LABORATORY Final Result * URIC ACID BLOOD (05/21/2021) Pathologist [facility] URIC ACID 4.1 05/21/2021 us Doc [facility] Abstract LABORATORY Final Result * VITAMIN D, 25 OH (05/21/2021) Pathologist [facility] VITAMIN D 25 HYDROXY S/P/B 98.5 05/21/2021 us Doc [facility] Abstract LABORATORY Final Result * (ABNORMAL) COMPREHENSIVE METABOLIC PANEL (05/21/2021) Pathologist [facility] SODIUM S/P/B 135 POTASSIUM S/P/B 4.1 CO2 [...] LABORATORY Final Result * LIPID PANEL (05/21/2021) Pathologist [facility] CHOLESTEROL 220 HDL 59 TRIGLYCERIDES 135 NON HDL CHOLESTEROL 161 LDL (CALCULATED) 135 05/21/2021 us Doc [facility] Abstract LABORATORY Final Result * FOLATE (OUTSIDE LAB) (05/21/2021) Pathologist [facility] FOLATE >24 05/21/2021 us Doc [facility] Abstract LAB-OUTSIDE/ABSTRACTED Final Result * VITAMIN B-12 (05/21/2021) [facility] VITAMIN B12 S/P/B 1,676 200 - 1,100 05/21/2021 us Doc [facility] Abstract LABORATORY Final Result * CBC (OUTSIDE LAB) (05/21/2021) [facility] WBC 7.6 HGB 10.6 HCT 31.3 PLT 274 05/21/2021 us Doc [facility] Abstract LAB-OUTSIDE/ABSTRACTED Final Result * THYROID STIM HORMONE, TSH (05/21/2021) [facility] TSH 0.59 05/21/2021 us Doc [facility] Abstract LABORATORY Final Result * URIC ACID BLOOD (05/21/2021) [facility] URIC ACID 4.1 05/21/2021 us Doc [facility] [...] documented as of this encounter Care Teams Tool Programmer Relationship Specialty Start Date End Date Merle Raymundo FNP [address] [place] [address] PCP - General Nurse Practitioner Family 04/16/19 documented as of this encounter
--- OUTSIDE RECORDS SUMMARY | 2025-03-11 14:01 | XMS_ITS ---
Author Organization [facility] Address [address] [place], [place] [id number] Care Team Providers Care Neurological Physiotherapist Name Role Phone Merle Raymundo Unavailable Unavailable [address] Unavailable [phone] Allergies No Known Allergies REASON FOR VISIT The patient has fungal toenails for awhile, but this past year she had decided to treat it. She used topical antifungal but it did not help. The nails feel like pressure and itch Immunizations Vaccine Route Administration Date Status Comme nts Influenza, high dose seasonal Unknown 01/15/2024 Refuse d Pneumococcal conjugate PCV 13 Unknown 01/15/2024 Refuse d Social History Tobacco Use: Social History Observation Description Date Details (start date - stop date) Current Smoker NA - NA Tobacco Control (Standard) Question Answer Notes Tobacco use: Current smoker How often do you smoke cigarettes? Every day Vital Signs Weight 110 lbs 01/15/2024 Weight-kg 49.9 kg 01/15/2024 Height 60 in 01/15/2024 Height-cm 152.4 cm 01/15/2024 BMI 21.48 kg/m2 01/15/2024 Encounters Encounter Location Date Provider Diagnosis [facility] [address] [place], [place] [id number] 01/15/[address] Tinea unguium B35.1 ; [...] is tolerated. Repeat LFTs Progress Notes * OUMOUVangieneDOB: 2 (64 yo F)Acc No.[id number]:01/15/2024 Progress Notes Patient: Oly ALEXANDER Provider: Roxanna Street DPM :1960 A ge:63 Y S ex:Female Date:01/15/2024 Address:[address] [place], [place] [id number] Subjective: * Chief Complaints: * 1 . The patient has fungal toenails for awhile, but this past year she had decided to treat it. She used topical antifungal but it did not help. The nails feel like pressure and itch. * HPI: H PI: New Complaint Karlos tomas presents for a new patient consultation., Karlos tomas complains of an issue to bilateral great toes - toenail fungus, Duration of problem is a year., MA: LB. * ROS: G eneral / Constitutional: Patient denies c hills, fever, weakness, night sweats. M usculoskeletal: Patient denies c hildhood foot problems, weakness. P eripheral Vascular: Patient denies u lceration of feet, cold extremities. S kin: Patient denies u lcerations, discoloration. P atient complains of n ail changes, fungal nails. N eurologic: Patient denies b alance difficulty, confusion, difficulty speaking, dizziness. * Medical History: F ibromyalgia, Neuropathy, Arthritis, Thyroid Disease, Back Trouble. * Surgical History: H ysterectomy , bunionectomy . * Social History: T obacco Use: T obacco Control (Standard) T obacco use: C urrent smoker, H ow often do you smoke cigarettes? E very day. * Medications: N one * Allergies: N .K.D.A. Objective: * Vitals: [...] subungual debris. They are painful to palpation. V ascular: Dorsalis pedis pulse: 2 /4, bilateral. Posterior tibial pulse: 2 /4, bilaterally. Capillary refill: l ess than 3 seconds. Edema: N o edema, bilateral. N eurologic: Gross sensation G ross sensation is intact to light touch.. M usculoskeletal: Muscle Strength M uscle strength is 5/5 in regards to dorsiflexion, plantarflexion, inversion, and eversion in bilateral lower extremities.. Assessment: * Assessment: 1. T inea unguium - B35.1 (Primary) 2 . P ain in right toe(s) - M79.674 3. P ain in left toe(s) - M79.675 Plan: * Treatment: * Immunizations: Influenza, high dose seasonal (Not administered - Refused: Patient decision) Pneumococcal conjugate PCV 13 (Not administered - Refused: Patient decision) Immunization record has been reviewed and updated. * Follow Up: 5 weeks (Reason: See how oral lamisil is tolerated. Repeat LFTs) * Billing Information: * Visit Code: 28056 Office Visit, New Pt., Level 3. * Procedure Codes: * Sign off status: Completed true * Provider: Roxanna Street DPM Date: 01/15/2024 Generated for Gabrielle peters/Yvon/Gerda on: 0 03/11/2025 02:01 PM CDT History and Physical Notes * HPI (History [...]
--- OUTSIDE RECORDS SUMMARY | 2025-03-11 14:01 | XMS_ITS | Encounter Summary ---
Author Organization [facility] Address [address] [place] [address] Care Team Providers Care Clerk Name Role Phone Merle Raymundo SYBIL Primary Care Provider [phone] Encounter Details Date Type Department Care Team (Late Contact Info) Description 12/06/2021 [employer] Power Message Enc [facility] Family & Internal Medicine [address] [phone] Susan, [facility] Provider Medication refill Social History Tobacco Use Types Packs/Day Years Used Date Smoking Tobacco: Every Day Cigarettes 1 12 Smokeless Tobacco: Never Comments:provider to anger control counselor : Benefits of smoking cessation reviewed [...] Sex Assigned at Female 12/04/2024 3: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 Legal Sex Female 5:58 PM CDT Gender Identity Not on file Sexual Orientation Not on file documented as of this encounter Plan of Treatment Upcoming Encounters Date Type Department Care Team (Late st Contact Info) Description 03/28/2025 2:40 PM CDT Office Visit [facility] Gastroenterology Specialty Clinic [place] [address] [place] [address] Iam Ramirez MD [address] [place] [address] documented as of this encounter Visit Diagnoses Not on filedocumented in this encounter Additional Health Concerns Assessment Noted Time PHQ-9 Depression Total Score: 1 05/31/20 21 1:15 PM CDT documented as of this encounter Care Teams Clerk Relationship Specialty Start Date End Date Merle Raymundo FNP [address] [place] [address] PCP - General Nurse Practitioner Family 04/16/19 documented as of this encounter
--- OUTSIDE RECORDS SUMMARY | 2025-03-11 14:01 | XMS_ITS | Clinical Summary ---
Author Organization [facility] Address [address] [place] [address] Care Team Providers Care Mechanical Assembler Name Role Phone Merle Raymundo SYBIL Primary Care Provider Allergies Active Allergy Reactions Criticality Noted Date Comments Gluten Meal GI Upset Other reaction(s): Allergic state (disorder) GI distress Medications lidocaine (LIDODERM) 5 %Indications:Fail ed back surgical syndrome,Spasm of muscle of lower back Place 1 patch onto the skin daily. 90 patch 1 022 Active SUMAtriptan (IMITREX) 100 MG tabletIndications :Other migraine without status migrainosus, not intractable TAKE 1 TABLET AT ONSET OF SYMPTOMS. MAY TAKE 1 TABLET 2 HOURS LATER. MAXIMUM OF 2 TABLETS IN 24 HOUR PERIOD 54 tablet 3 024 Active albuterol sulfate HFA 108 (90 Base) MCG/ACT inhalerIndication s:Cough USE 2 INHALATIONS EVERY 4 HOURS NEEDED FOR WHEEZING 25.5 g 3 024 Active cyclobenzaprine (FLEXERIL) 10 MG tabletIndications :Other chronic pain TAKE 1 TABLET THREE TIMES A DAY NEEDED (SPASMS) 270 tablet 3 024 Active buPROPion SR (WELLBUTRIN SR) 150 MG 12 hr tabletIndications :Recurrent major depressive disorder, in partial remission take 1 tablet by mouth twice a day 180 tablet 3 024 Active cloNIDine (CATAPRES) 0.2 MG tabletIndications :Hypertension, benign TAKE 1 TABLET FOUR TIMES A DAY 360 tablet 3 024 Active DULoxetine (CYMBALTA) 30 MG capsuleIndication s:Other chronic pain TAKE 1 CAPSULE DAILY 90 capsule 3 025 Active traZODone (DESYREL) 100 MG tabletIndications :Primary insomnia TAKE 3 TABLETS NIGHTLY AT BEDTIME 270 tablet 3 025 Active DULoxetine (CYMBALTA) 60 MG capsuleIndication s:Other chronic pain TAKE 2 CAPSULES DAILY (MUST BE SEEN FOR FURTHER REFILLS) 180 capsule 3 025 Active prazosin (MINIPRESS) 1 MG capsuleIndication s:Anxiety state TAKE 1 CAPSULE FOUR TIMES A DAY 360 capsule 3 025 Active temazepam (RESTORIL) 30 MG capsuleIndication s:Primary insomnia Take 1 capsule (30 mg total) by mouth nightly as needed. FOR SLEEP 30 capsule 3 025 Active sucralfate (CARAFATE) 1 G tabletIndications :Acute gastric ulcer without hemorrhage or perforation TAKE 1 TABLET (1 G TOTAL) BY MOUTH 3 (THREE) TIMES DAILY BEFORE MEALS FOR 60 DAYS. 270 tablet 1 025 2024 Active baclofen (LIORESAL) 10 MG tabletIndications :Spasm of muscle of lower back Take 1 tablet (10 mg total) by mouth 2 (two) times daily as needed (muscle spasms/pain). 180 tablet 1 025 Active levothyroxine (SYNTHROID) 150 MCG tabletIndications :Acquired hypothyroidism Take 1 tablet (150 mcg total) by mouth every morning. 90 tablet 1 025 2024 Active pantoprazole EC (PROTONIX) 40 MG tabletIndications :Gastroesophageal reflux disease, unspecified whether esophagitis present TAKE 1 TABLET BY MOUTH EVERY DAY 30 tablet 3 025 Active methocarbamol (ROBAXIN) 500 MG tabletIndications :Spasm of muscle of lower back TAKE 1 TABLET BY MOUTH THREE TIMES A DAY 90 tablet 3 025 Active traMADol HCl 100 MG TabIndications:Ch ronic Pain Take 1 tablet (100 mg total) by mouth 3 (three) times daily as needed. Indications: Chronic Pain FOR PAIN 90 tablet 2 025 Active gabapentin (NEURONTIN) 800 MG tabletIndications :Fibromyalgia TAKE 1 TABLET THREE TIMES A DAY 270 tablet 025 Active SYNTHROID 125 MCG tablet Take 1 tablet (125 mcg total) by mouth every morning. 024 2024 Discontinued traMADol HCl 100 MG TabIndications:Ch ronic Pain Take 1 tablet (100 mg total) by mouth 3 (three) times daily as needed. Indications: Chronic Pain FOR PAIN 90 tablet 2 024 2024 Discontinued(R eorder) pantoprazole EC (PROTONIX) 40 MG tabletIndications :Gastroesophageal reflux disease, unspecified whether esophagitis present TAKE 1 TABLET BY MOUTH EVERY DAY 30 tablet 3 025 2024 Discontinued methocarbamol (ROBAXIN) 500 MG tabletIndications :Spasm of muscle of lower back TAKE 1 TABLET BY MOUTH THREE TIMES A DAY 90 tablet 3 025 2024 Discontinued gabapentin (NEURONTIN) 800 MG tabletIndications :Fibromyalgia Take 1 tablet (800 mg total) by mouth 3 (three) times daily. 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 Arthritis 11/02/2016 Extrinsic asthma ([facility]) 11/02/2016 Chronic pain 11/02/2016 Hypertension, benign [...] Encounters Date Type Department Care Team Description 02/26/2025 MyChart Message Enc [facility] Family Internal [address] [address] Merle Raymundo FNP MRI 02/24/2025 MyChart Message Enc [address] [address] Merle Raymundo FNP Tests 02/18/2025 Travel 02/07/2025 Travel 02/03/2025 Telephone [facility] Internal [address] [address] Merle Raymundo FNP Lab Results 02/03/2025 MyChart Message Enc [address] [address] Merle Raymundo FNP MRI 01/28/2025 8:40 AM CDT Office Visit [address] [address] Merle Raymundo FNP Follow Up (Patient here today for f/u- would like yo discuss maybe cutting back down on methocarbamol ); Hypertension; Hypothyroidism 01/28/2025 - 01/28/2025 11:59 PM CDT [facility] [place] [address] Merle Raymundo FNP Discharge Disposition: Home or Self Care (Routine Discharge) 01/28/2025 Travel 01/20/2025 MyChart Message Enc [facility] Internal [address] [address] Merle Raymundo, [facility] Baclofen 01/02/2025 Scan [facility] SRVCS Scanned, [facility] (SCAN) 01/02/2025 Scan [facility] SRVCS Scanned, [facility] (SCAN); Image (SCAN); CT (SCAN) 12/20/2024 [facility]phone [facility] - [address], [address] [place] [address] Iam Ramirez MD Results 12/20/2024 Telephone [facility] - [address], [address] [place] [phone] Iam Ramirez MD Appointment Request 12/19/2024 11:00 AM MEDICAL AIDES TEACHER - 12/19/2024 11:59 PM [facility] Hospital Encounter [facility] Nuclear Medicine [phone] [place] [phone] Iam Ramirez MD Discharge Disposition: Home or Self Care (Routine Discharge) 12/19/2024 Telephone [facility] - [address], [address] [place] [phone] Iam Ramirez MD Results 12/19/2024 Travel 12/17/2024 12:11 PM MEDICAL AIDES TEACHER - 12/17/2024 11:59 PM [facility] Hospital Encounter [facility] Ultrasound [address] [place] [address] Iam Ramirez MD Discharge Disposition: Home or Self Care (Routine Discharge) 12/17/2024 Travel 12/16/2024 Orders Only [facility] Family & Internal Medicine [address] [address] Merle Raymundo FNP from Last 3 Months Immunizations Immunization Administration Dates Next Due Arexvy Respiratory Syncytial Virus (RSV, adjuvanted) 0.5 mL, PF 10/17/2023 FLUCELVAX (ccIIV3, TRIVALENT, 0.5mL) 09/17/2024 Fluarix 11/02/2016 Flucelvax 2 YRS+ (Multi-Dose Vial) 08/23/2019 Fluzone 6 Months+ Quad (0.5 mL Prefilled Syringe) 07/06/2020 Influenza (Generic) 11/02/2016 Influenza Adult (Generic) 08/08/2023,,07/20/2022,2020,07/06/2020,08/23/2019 Pneumococcal (Pneumovax 23) 09/10/2019 Pneumococcal (Prevnar 13) 02/24/2023 Shingrix 09/19/2020,09/25/2019 Tdap (Boostrix) 06/19/2019 Zoster (Zostavax) 76891 Unt/0.65Ml 09/19/2020 Family History Medical History Relation [...] to Q uit: No; Counseling Given: Yes Comments:provider to apprise counselor: Benefits of smoking cessation reviewed with [...] Sex Assigned at Female 12/04/2024 3:40 PM MEDICAL AIDES TEACHER Legal Sex Female 5:58 PM CDT Gender Identity Not on file Sexual Orientation Not on file Last Filed Vital Signs Vital Sign Reading Time Taken Comments Blood Pressure 112/76 01/28/2025 8:59 AM CDT Pulse 86 01/28/2025 8:59 AM CDT Temperature 36.8 C (98.2 F) 01/28/2025 8:59 AM CDT Respiratory Rate 18 01/28/2025 8:59 AM CDT Oxygen Saturation 96% 01/28/2025 8:59 AM CDT Inhaled Oxygen Concentration - - Weight 48.9 kg (107 lb 12.8 oz) 01/28/2025 8:59 AM CDT Height 154.9 cm (5' 1 ) 01/28/2025 8:59 AM CDT Body Mass Index 20.37 01/28/2025 8:59 AM CDT Plan of Treatment Upcoming Encounters Date Type Department Care Team (Late st Contact Info) Description 03/28/2025 2:40 PM CDT Office Visit [facility] [address] [address] Iam Ramirez MD [address] [place] [address] [id number] Health Maintenance Due Date Last Done Comments Annual Physical 1963 Mammogram Screening 12/08/2024 12/08/2022, 08/12/2020, 05/14/2019, Additional history exists Zoster Vaccines (3 of 3) 05/07/2025 020, 09/19/2020, 09/25/2019 Postponed from 11/14/2020 (Going to Outside Clinic) Pneumococcal Vaccine: 50+ Years (3 of 3 - PCV20 or PCV21) 02/25/2028 02/24/2023, 09/10/2019 DTaP, Tdap and Td Vaccines (2 - Td or Tdap) 06/19/2029 06/19/2019 Colorectal Cancer Screening Colonoscopy (10 Years) 10/16/2034 10/16/2024, 03/31/2020 Hepatitis C Completed 05/21/2021, 06/10/2009 RSV Immunization or 60+ Years Completed 10/17/2023 COVID-19 Vaccine Completed 09/17/2024, 04/2023, 04/28/2022, Additional history exists PHQ-2 (Physician [place]) Completed 11/11/2024 Meningococcal B Vaccine Aged Out No l onger eligible based on patient's age to complete this topic Meningococcal Vaccine Aged Out No lili kirsten eligible based on patient's age to complete this topic RSV Immunizations Under 20 Months Aged Out No longer eligible based on patient's age to complete this topic Medical Devices Implanted Type Area Microwave Oven Assembler Device Identifier Shelf Expiration Date Model / Serial / Lot Back Description:2-10 inch titani um rods and many screws T10-S1 Procedures Procedure Name Priority Date/Time Associated Diagnosis Comments CBC W/DIFF AUTOMATED Routine 01/28/2025 10:13 AM CDT Acquired hypothyroidism COMPREHENSIVE METABOLIC PANEL Routine 01/28/2025 10:13 AM CDT Acquired hypothyroidism THYROID STIM HORMONE TSH Routine 01/28/2025 10:13 AM CDT Acquired hypothyroidism THYROXINE, FREE (FT4) Routine 01/28/2025 10:13 AM CDT Acquired hypothyroidism FREE T3 Routine 01/28/2025 10:13 AM CDT Acquired hypothyroidism ANTINUCLEAR ANTIBODY WI RFX Routine 01/28/2025 10:13 AM CDT Ankylosis of thoracic spine Fibromyalgia Spondylosis RHEUMATOID FACTOR, QUANT Routine 01/28/2025 10:13 AM CDT Ankylosis of thoracic spine Fibromyalgia Spondylosis SED RATE, ERYTHROCYTE (ESR) Routine 01/28/2025 10:13 AM CDT Ankylosis of thoracic spine Fibromyalgia Spondylosis C-REACTIVE PROTEIN Routine 01/28/2025 10 :13 AM CDT Ankylosis of thoracic spine Fibromyalgia Spondylosis VITAMIN D, 25 OH Routine 01/28/2025 10:1 3 AM CDT Vitamin D deficiency CYCLIC CITRULLINATED PEPTIDE (CCP)ANTIBODY(IGG) Routine 01/28/2025 10:01 AM CDT Ankylosis of thoracic spine Fibromyalgia Spondylosis MG/PCCL UDS W CONF Routine 01/28/2025 9: 59 AM CDT Fibromyalgia Failed back surgical syndrome Spondylosis Spine deformity High risk medication use Anxiety state COLLECTION VENOUS BLOOD VENIPUNCTURE Routine 01/28/2025 9:33 AM CDT Ankylosis of thoracic spine Fibromyalgia Spondylosis Vitamin D deficiency Acquired hypothyroidism CT GENERIC 01/02/2025 OUTSIDE LAB COVID-19 (SCAN ORDER) Routine 01/02/2025 OUTSIDE LAB (SCAN ORDER) 01/02/2025 OUTSIDE LAB (SCAN ORDER) 01/02/2025 OUTSIDE LAB (SCAN ORDER) 01/02/2025 IMAGE GENERIC 01/02/2025 NM HEPATOBILIARY SCAN W/GB EJECTION FRACTION Routine 12/19/2024 1:14 PM MEDICAL AIDES TEACHER RUQ pain US ABD LIMITED Routine 12/17/2024 12:52 PM MEDICAL AIDES TEACHER RUQ pain MAMMOGRAM GENERIC (SCAN ORDER) 12/08/2022 HEPATITIS C ANTIBODY W/RFX TO HCV RNA Routine 05/21/2021 12:35 PM CDT COLONOSCOPY GENERIC (SCAN ORDER) 03/31/2020 from Last 3 Months or Most Recently Relevant to Health Maintenance Results * ANTINUCLEAR ANTIBODY WI RFX (WILDA) (01/28/2025 10:13 AM CDT) WILDA 0.2 01/29/2025 12:[address] [facility] Comment: NEGATIVE: <0.7 RATIO WILDA PROFILE AND TITER NOT PERFORMED THE WILDA SCREEN TESTS FOR THE FOLLOWING ANTIBODIES BY EIA: SSA1 (RO), SSB1 (LA), MORGAN, SCL70, JO1, CENTROMERE, LURE MAKER HISTONE MUST BE ORDERED SEPARATELY DNA (DS) ANTIBODY 7.7 IU/ML 025 12:[address] [facility] Comment: NEGATIVE: <10 IU/mL EQUIVOCAL: 10 to 15 IU/mL POSITIVE: >15 IU/mL THIS QUANTITATIVE ASSAY IS CALIBRATED TO THE [employer]'S WO/80 STANDARD. THE LEVEL OF dsDNA AUTOANTIBODY GERERALLY CORRELATES WITH THE LEVEL OF DISEASE ACTIVITY IN SYSTEMIC LUPUS ERYTHMATOSUS 01/28/2025 10:1 3 AM CDT us Merle Raymundo [facility] Final Result Performing Organization Address [facility] Co de Phone Number [facility] [address] [place] [address], [place] [phone] * RHEUMATOID FACTOR, QUANT (01/28/2025 10:13 AM CDT) RHEUMATOID FACTOR <10 <15 IU/ML 01/29/2025 12:[address] [facility] 01/28/2025 10:1 3 AM CDT us Merle Raymundo [facility] Final Result Performing Organization Address [facility] de Phone Number [facility] [address] [place] [address], [phone] * (ABNORMAL) FREE T3 (01/28/2025 10:13 AM CDT) FREE T3 1.3(L) 2.2 - 3.9 PG/ML 01/29/2025 1:[address] [facility] 01/28/2025 10:1 3 AM CDT us Merle Raymundo [facility] Final Result Performing Organization Address [facility] de Phone Number [facility] [address] [place] [address], [place] [phone] * SED RATE, ERYTHROCYTE (ESR) (01/28/2025 10:13 AM CDT) ESR 8 0 - 29 MM/HR 01/28/2025 2:26 PM CDT [facility] 01/28/2025 10:1 3 AM CDT Merle Raymundo [facility] Final Result [facility] [address] [place] [address], * (ABNORMAL) COMPREHENSIVE METABOLIC PANEL (01/28/2025 10:13 AM CDT) Pathologist [facility] SODIUM S/P/B 137 136 - 145 MMOL/L 01/28/2025 4:37 PM CDT [facility] POTASSIUM S/P/B 4.0 3.5 - 5.1 MMOL/L 01/28/2025 4:37 PM CDT [facility] CHLORIDE S/P/B 101 98 - 107 MMOL/L 01/28/2025 4:37 PM CDT [facility] CO2 28.8 21 - 32 MMOL/L 01/28/2025 4:37 PM CDT [facility] GLUCOSE 87 70 - 99 MG/DL 01/28/2025 4:37 PM CDT [facility] BUN 15 7 - 18 MG/DL 01/28/2025 4:37 PM CDT [facility] CREATININE S/P/B 0.88 0.55 - 1.02 MG/DL 01/28/2025 4:37 PM CDT [facility] CALCIUM S/P/B 9.1 8.4 - 10.5 MG/DL 01/28/2025 4:37 PM CDT [facility] BILIRUBIN TOTAL S/P/B 0.3 0.2 - 1.0 MG/DL 01/28/2025 4:37 PM CDT [facility] ALKALINE PHOSPHATASE S/P/B 69 50 - 130 U/L 01/28/2025 4:37 PM CDT [facility] [place] AST 22 15 - 37 U/L 01/28/2025 4:37 PM CDT [facility] [place] ALT 29 14 - 59 U/L 01/28/2025 4:37 PM CDT [facility] [place] TOTAL PROTEIN S/P/B 7.2 6.4 - 8.2 G/DL 01/28/2025 4:37 PM T [facility] [place] ALBUMIN S/P/B 4.2 3.4 - 5.0 G/DL 01/28/2025 4:37 PM T [facility] [place] ANION GAP 7.2 5 - 15 MMOL/L 01/28/2025 4:37 PM T [facility] [place] Comment:REFERENCE RANGE NOT ESTABLISHED OSMOLALITY (CALC) 284 MOSM/KG 025 4:37 PM T [facility] Comment:REFERENCE RANGE NOT ESTABLISHED GFR ESTIMATE 74(L) >90 ML/MIN/1. 73 M2 01/28/2025 4:37 PM T [facility] [place] GFR NOTES GFR REFERENCE S: 01/28/2025 4:37 PM [facility] [place] Comment: THE ESTIMATED GFR IS CALCULATED USING THE 2020 CKD-EPI EQUATION. THE FOLLOWING CATEGORIES FOR GRADING RENAL FUNCTION ARE RECOMMENDED BY THE INTERNATIONAL SOCIETY OF NEPHROLOGY (KDIGO 2012 CLINICAL PRACTICE GUIDELINE). G1,NORMAL OR HIGH: >89 ml/min/1.73 m2 G2,MILDLY DECREASED: 60-89 ml/min/1.73 m2 G3A,MILDLY TO MODERATELY DECREASED: 45-59 ml/min/1.73 m2 G3B,MODERATELY TO SEVERELY DECREASED: 30-44 ml/min/1.73 m2 G4,SEVERELY DECREASED: 15-29 ml/min/1.73 m2 G5,KIDNEY FAILURE: <15 ml/min/1.73 m2 01/28/2025 10:1 3 AM CDT us Merle SULLIVANP [facility] Final Result [facility] [place] [address] [place] [address], [place] [phone] * C-REACTIVE PROTEIN (01/28/2025 10:13 AM CDT) [facility] C-REACTIVE PROTEIN 0.10 <0.30 mg/dL 01/28/2025 4:37 PM CDT [facility] 01/28/2025 10:1 3 AM CDT Merle Zackary [facility] Final Result ARGENIS MIGUEL, [place] [address] [place] [address], [place] [phone] * (ABNORMAL) CBC W/DIFF AUTOMATED (01/28/2025 10:13 AM CDT) [facility] WBC 6.97 4.00 - 10.80 x10'3/uL 01/28/2025 3:38 PM CDT [facility] RBC 3.94(L) 4.10 - 5.40 x10'6/uL 01/28/2025 3:38 PM CDT [facility] HGB 12.6 12.0 - 16.0 G/DL 01/28/2025 3:38 PM CDT [facility] HCT 38.3 36.0 - 47.0 % 01/28/2025 3:38 PM CDT [facility] MCV 97.2 78.0 - 100.0 FL 01/28/2025 3:38 PM CDT [facility] MCH 32.0(H) 27.0 - 31.0 PG 01/28/2025 3:38 PM CDT [facility] MCHC 32.9(L) 33.0 - 36.0 G/DL 01/28/2025 3:38 PM CDT [facility] RDW 13.5 11.5 - 14.5 % 01/28/2025 3:38 PM CDT [facility] PLT 336 150 - 350 x10'3/uL 01/28/2025 3:38 PM CDT [facility] MPV 10.6(H) 7.4 - 10.4 FL 01/28/2025 3:38 PM CDT -[facility] DIFFERENTIAL TYPE AUTOMATED DIFFERENTIAL 01/28/2025 3:38 PM CDT [facility] NEUTROPHILS % 59.7 % 01/28/2025 3:38 PM CDT [facility] LYMPHOCYTES % 28.1 % 01/28/2025 3:38 PM CDT [facility] MONOCYTES % 7.9 % 01/28/2025 3:38 PM CDT [facility] EOSINOPHILS % 2.9 % 01/28/2025 3:38 PM CDT [facility] BASOPHILS % 1.4 % 01/28/2025 3:38 PM CDT [facility] IMMATURE GRANS % 0.0 % 01/28/2025 3:38 PM CDT [facility] ABS. NEUTROPHILS 4.16 1.60 - 8.30 x10'3/uL 01/28/2025 3:38 PM CDT [facility] ABS. LYMPHOCYTES 1.96 0.80 - 4.70 x10'3/uL 01/28/2025 3:38 PM CDT [facility] ABS. MONOCYTES 0.55 0.00 - 1.50 x10'3/uL 01/28/2025 3:38 PM CDT [facility] ABS. EOSINOPHILS 0.20 0.00 - 0.40 x10'3/uL 01/28/2025 3:38 PM CDT [facility] ABS. BASOPHILS 0.10 0.00 - 0.20 x10'3/uL 01/28/2025 3:38 PM CDT [facility] ABS. IMMATURE GRANULOCYTES 0.00 0.00 - 0.03 x10'3/uL 01/28/2025 3:38 PM CDT [facility] 01/28/2025 10:1 3 AM CDT Merle Paganadin [facility] Final Result Performing Organization Address City/[facility]/ZIP Co de Phone Number [facility] [address] [place] [address], [place] [phone] * THYROXINE, FREE (FT4) (01/28/2025 10:13 AM CDT) FREE T4 0.85 0.76 - 1.46 NG/DL 01/28/2025 10:[address] [facility] 01/28/2025 10:1 3 AM CDT Merlemarie Paganadin [facility] Final Result Performing Organization Address [facility] Co de Phone Number [facility] [address] [place] [address], [place] [phone] * (ABNORMAL) THYROID STIM HORMONE TSH (01/28/2025 10:13 AM CDT) TSH 50.284(H) 0.358 - 3.740 uIU/ML 01/28/2025 4:37 PM CDT [facility] 01/28/2025 10:1 3 AM CDT Merle Paganadin [facility] Final Result Performing Organization Address City/[facility] Co de Phone Number [facility] [address] [place] [address], [place] [phone] * (ABNORMAL) VITAMIN D 25 OH (01/28/2025 10:13 AM CDT) VITAMIN D 25 HYDROXY TOTAL S/P/B 104.1(H) 30 - 100 NG/ML 01/28/2025 4:37 PM CDT [facility] [id number]|2025-03-11 14:02:00|2025-03-11 14:01:00|XMS_ITS|BKG DAEMON|External Medical Summaries|[id number]|" Encounter Summary Created on: March 11, 2025 Oly Patiño : 1960 Sex: Female Author Organization [facility] Address [address] [place] [address] Care Team Providers Care Mechanical Assembler Name Role Phone Merle Raymundo Primary Care Provider [phone] Encounter Details Date Type Department Care Team (Late st Contact Info) Description 02/24/2023 MyChart Message Enc [facility] Medical Group Family & Internal Medicine [facility] [address] [place] [address] Merle Raymundo FNP [address] [place] [address] Referrel Social History Tobacco Use Types Packs/Day Years Used Date Smoking Tobacco: Every Day Cigarettes 1 12 Smokeless Tobacco: Never Comments:provider to apprise counselor : Benefits of smoking cessation reviewed [...] Sex Assigned at Female 12/04/2024 3:40 PM MEDICAL AIDES TEACHER Legal Sex Female 5:58 PM CDT Gender Identity Not on file Sexual Orientation Not on file COVID-19 Exposure Response Date Recorded In the last 10 days, have yo u been in contact with someone who was confirmed or suspected to have Coronavirus/COVID-19? No / Unsure 02/24/2023 10:00 AM CDT documented as of this encounter Functional Status * Over the past 2 weeks, how often have you been bothered by any of the following problems? Question Answer Date of Assessment Author Status Little interest or pleasure in doing things Not at all 02/24/2023 10:23 AM JANETT Magalys Gibson MA Act kaitlyn Feeling down, depressed, or hopeless Not at all 02/24/2023 10:23 AM JANETT Magalys Gibson MA Active Patient Health Questionnaire-2 Score 0 02/24/2023 10:23 AM JANETT Magalys Gibson MA Active * Question Answer Date of Assessment Author Status Trouble falling or staying asleep, or sleeping too much Not at all 02/24/2023 10:23 AM Magalys Marmolejo MA Active Feeling tired or having little energy Not at all 02/24/2023 10:23 AM Magalys Marmolejo MA Active Poor appetite or overeating Not at all 02/24/2023 10:23 AM Magalys Marmolejo MA Active Feeling bad about yourself - or that you are a failure or have let yourself or your family down Not at all 02/24/2023 10:23 AM Magalys Marmolejo MA Active Trouble concentrating on things, such as reading the newspaper or watching television Not at all 02/24/2023 10:23 AM Magalys Marmolejo MA Active Moving or speaking so slowly that other people could have noticed? Or the opposite - being so fidgety or restless that you have been moving around a lot more than usual. Not at all 02/24/2023 10:23 AM JANETT Magalys Gibson MA Active Thoughts that you would be better off or hurting yourself in some way Not at all 02/24/2023 10:23 AM CDT Magalys Gibson MA Active Patient Health Questionnaire-9 Score 0 02/24/2023 10:23 AM CDT Magalys Gibson MA Active * If you checked off any problems on this questionnaire so far, Question Answer Date of Assessment Author Status How difficult have these problems made it for you to do your work, take care of things at home, or get along with other people? Not difficult at all 02/24/2023 10:23 AM CDT Magalys Gibson MA Active documented as of this encounter Plan of Treatment Upcoming Encounters Date Type Department Care Team (Late st Contact Info) Description 03/28/2025 2:40 PM CDT Office Visit [facility] Clinic [address] [address] Iam Ramirez MD [address] [place] [phone] documented as of this encounter Visit Diagnoses Not on filedocumented in this encounter Additional Health Concerns Assessment Noted Time PHQ-9 Depression Total Score: 0 02/25/20 23 10:23 AM CDT documented as of this encounter Care Teams Mechanical Assembler Relationship Specialty Start Date End Date Merle Raymundo FNP [address] [place] [address] PCP - General Nurse Practitioner Family 04/16/19 documented as of this encounter "
--- OUTSIDE RECORDS SUMMARY | 2025-03-11 14:01 | XMS_ITS | Encounter Summary ---
Author Organization [facility] Address [facility] [place] [address] Care Team Providers Care Setter Juice Packaging Machines Name Role Phone Merle Raymundo Primary Care Provider [phone] Reason for Referral * Imaging (Routine) - New Request Specialty Diagnoses / Procedures Referred By Sander vitale Referred To Contact RADIOLOGY Diagnoses Neck pain Other chronic pain Failed back surgical syndrome Thoracic facet joint syndrome Spondylosis Spine deformity Ankylosis of thoracic spine Procedures MRI CERV SPINE WO CON Merle Raymundo FNP [address] [place] [address] Phone: tel: fax: Referral ID Status Reason Start Date Expiration Date V isits Requested Visits Authorized [id number] New Request 03/10/2025 03/10/2026 1 1 * Imaging (Routine) - New Request Specialty Diagnoses / Procedures Referred By Sander vitale Referred To Contact RADIOLOGY Diagnoses Neck pain Other chronic pain Failed back surgical syndrome Thoracic facet joint syndrome Spondylosis Spine deformity Ankylosis of thoracic spine Procedures MRI THOR SPINE WO CON Merle Raymundo FNP [address] [place] [address] Phone: tel: fax: Referral ID Status Reason Start Date Expiration Date V isits Requested Visits Authorized [id number] New Request 03/10/2025 03/10/2026 1 1 * Imaging (Routine) - New Request Specialty Diagnoses / Procedures Referred By Contphillip vitale Referred To Contact RADIOLOGY Diagnoses Chronic left-sided low back pain without sciatica Chronic midline low back pain without sciatica Neck pain Other chronic pain Failed back surgical syndrome Thoracic facet joint syndrome Spondylosis Spine deformity Ankylosis of thoracic spine Spasm of muscle of lower back Procedures MRI LUMB SPINE WO CON Merle Raymundo FNP [address] [place] [address] Phone: tel: fax: Referral ID Status Reason Start Date Expiration Date V isits Requested Visits Authorized [id number] New Request 03/06/2025 03/06/2026 1 1 Reason for Visit * Reason Onset Date Comments Orders 02/24/2025 Encounter Details Date Type Department Care Team (Late st Contact Info) Description 02/24/2025 Impres Medicalt Message Enc [facility] Medical Group Family & Internal Medicine [address] [phone] Merle Raymundo FNP [address] [place] [address] Tests Social History Tobacco Use Types Packs/Day Years Used Date Smoking Tobacco: Every Day Cigarettes 1 12 Passive Smoke Exposure: Current Smokeless Tobacco: Never Comments:provider to cosmetic counselor : Benefits of smoking cessation reviewed [...] Sex Assigned at Female 12/04/2024 3:40 PM GEM SETTER Legal Sex Female 5:58 PM CDT Gender Identity Not on file Sexual Orientation Not on file documented as of this encounter Progress Notes * Anselmo Mills MA - 03/10/2025 1:23 PM CDTAddended by: ANSELMO MILLS on: 03/10/2025 01:23 PM Modules accepted: Orders * Anselmo Mills MA - 03/10/2025 1:22 PM CDT MRIs c-spine and t-spine ordered for [facility]. Patient informed via [employer] message and provided phone number to reach referral department with any further questions regarding the status of these order. 03/10/2025 1:23 PM * SYBIL Carranza - 03/10/2025 8:47 AM CDT Okay to order, had previous surgeries and chronic, worsening pain * Shannan Bhatia MA - 03/06/2025 11:06 AM CDT MRI ordered * Laney Luke - 03/06/2025 10:29 AM CDT Are you claustrophobic or have anxiety unable to lay still for 30 minutes or unable to follow commands? no per patient Do you have a ventricular shunt? No per patient Any pacemakers, defibrillators, pacing wires, loop recorders? no per patient Implants stimulators? no per patient Piercing or dermal piercing? No Per patient Also where do you want to go for this MRI? [facility] per patient * SYBIL Carranza - 03/05/2025 9:00 AM CDT Yours? * SYBIL Carranza - 03/04/2025 3:38 PM CDT Okay to order * SYBIL Carranza - 03/03/2025 8:23 AM CDT Okay to order MRIs- see notes * SYBIL Carranza - 02/25/2025 9:15 AM CDT I'm not sure she can have an MRI with her hardware in her back? CT? * Pastora Field RN - 02/24/2025 5:16 PM CDT Not sure what MRI she is referring to. Did you order this LL-02/24/25 documented in this encounter Plan of Treatment Upcoming Encounters Date Type Department Care Team (Late st Contact Info) Description 03/28/2025 2:40 PM CDT Office Visit [facility] Medical Group Gastroenterology Specialty Clinic [place] [address] [place] [phone] Iam Ramirez MD [address] [place] [phone] Scheduled Orders Name Type Priority Associated Diagnoses Orde r Schedule MRI LUMB SPINE WO CON MRI Routine Chronic left-sided low back pain without sciatica Chronic midline low back pain without sciatica Neck pain Other chronic pain Failed back surgical syndrome Thoracic facet joint syndrome Spondylosis Spine deformity Ankylosis of thoracic spine Spasm of muscle of lower back Expected: 03/06/2025, Expires: 03/03/2026 MRI THOR SPINE WO CON MRI Routine Neck pain Other chronic pain Failed back surgical syndrome Thoracic facet joint syndrome Spondylosis Spine deformity Ankylosis of thoracic spine Expected: 03/10/2025, Expires: 03/10/2026 MRI CERV SPINE WO CON MRI Routine Neck pain Other chronic pain Failed back surgical syndrome Thoracic facet joint syndrome Spondylosis Spine deformity Ankylosis of thoracic spine Expected: 03/10/2025, Expires: 03/10/2026 documented as of this encounter Visit Diagnoses Diagnosis Chronic left-sided low back pain without sciatica- Primary Chronic midline low back pain without sciatica Neck pain Cervicalgia Other chronic pain Failed back surgical syndrome Other unspecified back disorder Thoracic facet joint syndrome Other symptoms referable to back Spondylosis Spondylosis of unspecified site without mention of myelopathy Spine deformity Congenital anomaly of spine, unspecified Ankylosis of thoracic spine Spasm of muscle of lower back documented in this encounter Additional Health Concerns Assessment Noted Time PHQ-9 Depression Total Score: 0 07/16/20 24 8:08 AM CDT documented as of this encounter Care Teams Setter Juice Packaging Machines Relationship Specialty Start Date End Date Merle Raymundo FNP [address] [place] [address] PCP - General Nurse Practitioner Family 04/16/19 documented as of this encounter
--- OUTSIDE RECORDS SUMMARY | 2025-03-11 14:01 | XMS_ITS | Encounter Summary ---
Author Organization [facility] Address [address] [place] [address] Care Team Providers Care Charity Fundraiser Name Role Phone Merle Raymundo Primary Care Provider [phone] Encounter Details Date Type Department Care Team (Late st Contact Info) Description 01/21/2022 Red-rabbitt Message Enc [facility] Medical Group Family & Internal Medicine [id number] [place] [address] Merle Raymundo FNP [facility] [place], [place] [phone] Tramadol Social History Tobacco Use Types Packs/Day Years Used Date Smoking Tobacco: Every Day Cigarettes 1 12 Smokeless Tobacco: Never Comments:provider to dormitory counselor : Benefits of smoking cessation reviewed [...] Sex Assigned at Female 12/04/2024 3:40 PM ELECTRICAL ENGINEERING INTERN Legal Sex Female 5:58 PM CDT Gender [...] Description 03/28/2025 2:40 PM CDT Office Visit [facility]ty Clinic [address] [address] Iam Ramirez MD [address] [place] [address] documented as of this encounter Visit Diagnoses Not on filedocumented in this encounter Additional Health Concerns Assessment Noted Time PHQ-9 Depression Total Score: 2 01/08/20 22 10:04 AM ELECTRICAL ENGINEERING INTERN documented as of this encounter Care Teams Charity Fundraiser Relationship Specialty Start Date End Date Merle Raymundo FNP [address] [place] [address] PCP - General Nurse Practitioner Family 04/16/19 documented as of this encounter
--- OUTSIDE RECORDS SUMMARY | 2025-03-11 14:01 | XMS_ITS | Encounter Summary ---
Author Organization [facility] Address [address] [place] [address] Care Team Providers Care Electroplater Automatic Name Role Phone Merle Raymundo Primary Care Provider [phone] Encounter Details Date Type Department Care Team (Late st Contact Info) Description 02/03/2025 Infinetics Technologiest Message Enc [facility] Medical Group Family & Internal Medicine [address] [place] [address] Merle Raymundo FNP [facility] [place], [place] [phone] MRI Social History Tobacco Use Types Packs/Day Years Used Date Smoking Tobacco: Every Day Cigarettes 1 12 Passive Smoke Exposure: Current Smokeless Tobacco: Never Comments:provider to commercial counsel : Benefits of smoking cessation reviewed with [...] Sex Assigned at Female 12/04/2024 3:40 PM DATA ANALYTICS DEVELOPER Legal Sex Female 5:58 PM CDT Gender Identity Not on file Sexual Orientation Not on file documented as of this encounter Plan of Treatment Upcoming Encounters Date Type Department Care Team (Late st Contact Info) Description 03/28/2025 2:40 PM CDT Office Visit [facility] Medical [facility]ty Clinic [address] [phone] Iam Ramirez MD [address] [place] [address] documented as of this encounter Visit Diagnoses Not on filedocumented in this encounter Additional Health Concerns Assessment Noted Time PHQ-9 Depression Total Score: 0 07/16/20 24 8:08 AM CDT documented as of this encounter Care Teams Electroplater Automatic Relationship Specialty Start Date End Date Merle Raymundo FNP [address] [place] [address] PCP - General Nurse Practitioner Family 04/16/19 documented as of this encounter
--- OUTSIDE RECORDS SUMMARY | 2025-03-11 14:02 | XMS_ITS | Encounter Summary ---
Author Organization [facility] Address [facility] [place] [address] Care Team Providers Care Chief Crna Name Role Phone Merle Raymundo SYBIL Primary Care Provider [phone] Encounter Details Date Type Department Care Team (Late st Contact Info) Description 05/12/2024 [employer]itech Sensors Message Enc [facility] [place], [place] [phone] [id number] Denise Drake MD Three [facility] [address] [place], [place] [phone] Appointment time and date Social History Tobacco Use Types Packs/Day Years Used Date Smoking Tobacco: Every Day Cigarettes 1 12 Passive Smoke Exposure: Current Smokeless Tobacco: Never Comments:provider to certified credit counselor : Benefits of smoking cessation reviewed [...] Sex Assigned at Female 12/04/2024 3:40 PM MODEL TECHNICIAN Legal Sex Female 5:58 PM CDT Gender Identity Not on file Sexual Orientation Not on file documented as of this encounter Plan of Treatment Upcoming Encounters Date Type Department Care Team (Late st Contact Info) Description 03/28/2025 2:40 PM CDT Office Visit [facility] Medical [facility] Gastroenterology Specialty Clinic [address] [phone] Iam Ramirez MD [address] [place] [address] documented as of this encounter Visit Diagnoses Not on filedocumented in this encounter Additional Health Concerns Assessment Noted Time PHQ-9 Depression Total Score: 2 01/25/20 24 1:58 PM CDT documented as of this encounter Care Teams Chief Crna Relationship Specialty Start Date End Date Merle Raymundo FNP [address] [place] [address] PCP - General Nurse Practitioner Family 04/16/19 documented as of this encounter
--- OUTSIDE RECORDS SUMMARY | 2025-03-11 14:02 | XMS_ITS | Encounter Summary ---
Author Organization [facility] Address [address] [place] [address] Care Team Providers Care Burlap Spreader Name Role Phone Merle Raymundo SYBIL Primary Care Provider [phone] Encounter Details Date Type Department Care Team (Late Contact Info) Description 04/26/2023 MyChart Message Enc [facility] [address] [place] [address] Lens[place], [facility] Provider Air Quality Message Social History Tobacco Use Types Packs/Day Years Used Date Smoking Tobacco: Every Day Cigarettes 1 12 Smokeless Tobacco: Never Comments:provider to drug counselor : Benefits of smoking cessation reviewed [...] Sex Assigned at Female 12/04/2024 3:40 PM DEEP SEA DIVER Legal Sex Female 5:58 PM CDT Gender Identity Not on file Sexual Orientation Not on file documented as of this encounter Plan of Treatment Upcoming Encounters Date Type Department Care Team (Late Contact Info) Description 03/28/2025 2:40 PM CDT Office Visit [facility] Gastroenterology Specialty Clinic [phone] [place] [phone] Iam Ramirez MD [address] [place] [address] documented as of this encounter Visit Diagnoses Not on filedocumented in this encounter Additional Health Concerns Assessment Noted Time PHQ-9 Depression Total Score: 0 02/25/20 23 10:23 AM CDT documented as of this encounter Care Teams Burlap Spreader Relationship Specialty Start Date End Date Merle Raymundo FNP [address] [place] [phone] PCP - General Nurse Practitioner Family 04/16/19 documented as of this encounter
--- OUTSIDE RECORDS SUMMARY | 2025-03-11 14:02 | XMS_ITS | Encounter Summary ---
Author Organization [facility] Address [address] [place] [address] Care Team Providers Care Counter Intelligence Technician Name Role Phone Merle Raymundo SYBIL Primary Care Provider [phone] Encounter Details Date Type Department Care Team (Late st Contact Info) Description 04/26/2024 Carbon Salon Message Enc [facility] Interventional Pain Management Center [place], [place] [phone] [id number] Denise Drake MD Three [facility] [address] [place] [address] Make another appointment Social History Tobacco Use Types Packs/Day Years Used Date Smoking Tobacco: Every Day Cigarettes 1 12 Smokeless Tobacco: Never Comments:provider to scholarship counselor : Benefits of smoking cessation reviewed [...] Sex Assigned at Female 12/04/2024 3:40 PM PLATFORM BEATER Legal Sex Female 5:58 PM CDT Gender Identity Not on file Sexual Orientation Not on file documented as of this encounter Plan of Treatment Upcoming Encounters Date Type Department Care Team (Late st Contact Info) Description 03/28/2025 2:40 PM CDT Office Visit [facility] Gastroenterology Specialty Clinic [address] [phone] Iam Ramirez MD [address] [place] [address] documented as of this encounter Visit Diagnoses Not on filedocumented in this encounter Additional Health Concerns Assessment Noted Time PHQ-9 Depression Total Score: 2 01/25/20 24 1:58 PM CDT documented as of this encounter Care Teams Counter Intelligence Technician Relationship Specialty Start Date End Date Merle Raymundo FNP [address] [place] [address] PCP - General Nurse Practitioner Family 04/16/19 documented as of this encounter
--- OUTSIDE RECORDS SUMMARY | 2025-03-11 14:02 | XMS_ITS | Patient Health Record ---
Author Organization [facility] Address [address] [place], [place] [id number] Care Team Providers Care Stem Processing Machine Operator Name Role Phone Merle Raymundo Unavailable Unavailable Allergies No Known Allergies Reason For Referral No Information Immunizations Vaccine Route Administration Date Status Comme nts Influenza, high dose seasonal Unknown 01/15/2024 Refuse d Pneumococcal conjugate PCV 13 Unknown 01/15/2024 Refuse d Social History Tobacco Use: Social History Observation Description Date Details (start date - stop date) Current Smoker NA - NA Tobacco Control (Standard) Question Answer Notes Tobacco use: Current smoker How often do you smoke cigarettes? Every day Plan Of Treatment Pending Test Test Name Order Date Liver Function Test (LFT) 01/15/2024 Insurance Providers Payer Name Payer Address Payer Phone Subscriber Number Group Number Insured Name Patient Relationship to Insured Coverage Start Date Coverage End Date [facility] ATTN CLAIMS [address] [place] [address] [id number] BILL PATIÑO Spouse - patient is the spouse of the insured Medical (General) History Medical History History ICD Code fibromyalgia neuropathy Arthritis Thyroid Disease Back Trouble Surgical History Surgery Date(Month/Year) Hysterectomy bunionectomy
--- OUTSIDE RECORDS SUMMARY | 2025-03-11 14:02 | XMS_ITS | Encounter Summary ---
Author Organization [facility] Address [address] [place] [address] Care Team Providers Care Line Maintenance Technician Name Role Phone Merle Raymundo Primary Care Provider [phone] Encounter Details Date Type Department Care Team (Late st Contact Info) Description 02/06/2024 SiteJabbert Message Enc [facility] Medical Group Family & Internal Medicine [phone] [place] [address] Merle Raymundo FNP [address] [place], [place] [phone] Radiographer Social History Tobacco Use Types Packs/Day Years Used Date Smoking Tobacco: Every Day Cigarettes 1 12 Smokeless Tobacco: Never Comments:provider to milieu counselor : Benefits of smoking cessation reviewed [...] Sex Assigned at Female 12/04/2024 3:40 PM SENIOR PROCESS CONTROL TECH Legal Sex Female 5:58 PM CDT Gender Identity Not on file Sexual Orientation Not on file documented as of this encounter Functional Status * Calculated C-SSRS Risk Score (Lifetime/Recent) Answer Date of Assessment Author Status No Risk Indicated 02/09/2024 9:44 AM CDT Alva Wood RN Active * Butts Suicide Severity Rating Scale (Screener/Recent Self-Report) Question Answer Date of Assessment Author Status 1. Wish to be (Past 1 Month) No 02/09/2024 9:44 AM CDT Catia Wood RN Acti ve 2. Non-Specific Active Suicidal Thoughts (Past 1 Month) No 02/09/2024 9:44 AM CDT Catia Wood RN Acti ve 6. Suicidal Behavior (Lifetime) No 02/09/2024 9:44 AM CDT Catia Wood RN Acti ve documented as of this encounter Plan of Treatment Upcoming Encounters Date Type Department Care Team (Late st Contact Info) Description 03/28/2025 2:40 PM CDT Office Visit [facility] Medical Group Gastroenterology Specialty Clinic [address] [address] Iam Ramirez MD [address] [place] [address] documented as of this encounter Visit Diagnoses Not on filedocumented in this encounter Additional Health Concerns Assessment Noted Time PHQ-9 Depression Total Score: 2 01/25/20 24 1:58 PM CDT documented as of this encounter Care Teams Line Maintenance Technician Relationship Specialty Start Date End Date Merle Raymundo FNP [address] [place] [address] PCP - General Nurse Practitioner Family 04/16/19 documented as of this encounter
--- OUTSIDE RECORDS SUMMARY | 2025-03-11 14:02 | XMS_ITS | Encounter Summary ---
Author Organization [facility] Address [address] [place] [address] Care Team Providers Care Bistro Attendant Name Role Phone Unavailable Primary Care Provider Unavailabl e Encounter Details Date Type Department Care Team (Late st Contact Info) Description 01/21/2003 Outpatient Historical [facility] Head[facility] Center [address] [facility] [address] [place] [address] Campos Caba (Two) Social History Tobacco Use Types Packs/Day Years Used Date Smoking Tobacco: Never Assessed Comments Unknown Sex and Gender Information Value Date Recorded Sex Assigned at Not on file Legal Sex Female 3:16 AM SUPERVISOR BLEACH PLANT Gender Identity Not on file Sexual Orientation Not on file documented as of this encounter Plan of Treatment Not on file documented as of this encounter Visit Diagnoses Not on filedocumented in this encounter
--- OUTSIDE RECORDS SUMMARY | 2025-03-11 14:02 | XMS_ITS | Encounter Summary ---
Author Organization [facility] Address [address] [place] [address] Care Team Providers Care Flat Sorting Machine Clerk Name Role Phone Unavailable Primary Care Provider Unavailabl e Encounter Details Date Type Department Care Team (Late st Contact Info) Description 10/06/2000 Outpatient Historical [facility] [address] [facility] [address] [place] [address] Campos Caba (Two) Social History Tobacco Use Types Packs/Day Years Used Date Smoking Tobacco: Never Assessed Comments Unknown Sex and Gender Information Value Date Recorded Sex Assigned at Not on file Legal Sex Female 3:16 AM SERVICE CENTER ASSISTANT Gender Identity Not on file Sexual Orientation Not on file documented as of this encounter Plan of Treatment Not on file documented as of this encounter Visit Diagnoses Not on filedocumented in this encounter
--- OUTSIDE RECORDS SUMMARY | 2025-03-11 14:02 | XMS_ITS | Encounter Summary ---
Author Organization [facility] Address [address] [place] [address] Care Team Providers Care Edge Polisher Name Role Phone Unavailable Primary Care Provider Unavailabl e Encounter Details Date Type Department Care Team (Late st Contact Info) Description 09/29/2000 Outpatient Historical [facility] Social History Tobacco Use Types Packs/Day Years Used Date Smoking Tobacco: Never Assessed Comments Unknown Sex and Gender Information Value Date Recorded Sex Assigned at Not on file Legal Sex Female 3:16 AM BLISS PRESS OPERATOR Gender Identity Not on file Sexual Orientation Not on file documented as of this encounter Plan of Treatment Not on file documented as of this encounter Visit Diagnoses Not on filedocumented in this encounter
--- OUTSIDE RECORDS SUMMARY | 2025-03-11 14:02 | XMS_ITS | Encounter Summary ---
Author Organization [facility] Address [address] [place] [address] Care Team Providers Care Hrbp Name Role Phone Unavailable Primary Care Provider Unavailabl e Encounter Details Date Type Department Care Team (Late st Contact Info) Description 03/14/2005 Outpatient Historical [facility] [address] [facility] [address] [place] [address] Campos Caba (Two) Social History Tobacco Use Types Packs/Day Years Used Date Smoking Tobacco: Never Assessed Comments Unknown Sex and Gender Information Value Date Recorded Sex Assigned at Not on file Legal Sex Female 3:16 AM LEGAL COMPLIANCE OFFICER Gender Identity Not on file Sexual Orientation Not on file documented as of this encounter Plan of Treatment Not on file documented as of this encounter Visit Diagnoses Not on filedocumented in this encounter
--- OUTSIDE RECORDS SUMMARY | 2025-03-11 14:02 | XMS_ITS | Encounter Summary ---
Author Organization [facility] Address [address] [place] [address] Care Team Providers Care 1St Pressman On [employer] Press Name Role Phone Unavailable Primary Care Provider Unavailabl e Encounter Details Date Type Department Care Team (Late st Contact Info) Description 12/08/2003 Outpatient Historical [facility] [address] [facility] [address] [place] [address] Campos Caba (Two) Social History Tobacco Use Types Packs/Day Years Used Date Smoking Tobacco: Never Assessed Comments Unknown Sex and Gender Information Value Date Recorded Sex Assigned at Not on file Legal Sex Female 3:16 AM MACHINE REBUILDER Gender Identity Not on file Sexual Orientation Not on file documented as of this encounter Plan of Treatment Not on file documented as of this encounter Visit Diagnoses Not on filedocumented in this encounter
--- OUTSIDE RECORDS SUMMARY | 2025-03-11 14:02 | XMS_ITS | Clinical Summary ---
Author Organization [employer] [facility] Address [address] [place] [address] Care Team Providers Care Stock Fitter Name Role Phone Unavailable Primary Care Provider [...] on file Legal Sex Female 3:16 AM MOLD MAINTENANCE TECHNICIAN Gender Identity Not on file Sexual Orientation Not on file Plan of Treatment Health Maintenance Due Date Last Done Comments DTAP/TDAP/TD VACCINES (1 - Tdap) 1980 HPV/Cotest (21-29) 1982 CERVICAL CANCER SCREENING 1991 HPV/Cotest (30-65) 1991 PAP SMEAR 1991 BREAST CANCER SCREENING 2001 COLORECTAL SCREENING 2006 Colorectal Cancer Screening 2006 FIT-DNA Q 3 years 2006 FIT/FOBT Q 1 year 2006 Flex Sig/CT Colonography Q 5 years 2006 ZOSTER VACCINE (1 of 2) 2011 INFLUENZA VACCINE (#1) 2024 RSV VACCINE (60+ or ) (1 - 1-dose 75+ series) 2036
--- OUTSIDE RECORDS SUMMARY | 2025-03-11 14:02 | XMS_ITS | Encounter Summary ---
Author Organization [facility] Address [address] [place] [address] Care Team Providers Care Dialysis Nurse Name Role Phone Merle Raymundo Primary Care Provider [phone] Encounter Details Date Type Department Care Team (Late st Contact Info) Description 07/27/2023 [employer] Message Enc [facility] [id number] [place] [address] Merle Raymundo FNP [address] [place], [place] [id number] Prescription Social History Tobacco Use Types Packs/Day Years Used Date Smoking Tobacco: Every Day Cigarettes 1 12 Smokeless Tobacco: Never Comments: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 : Benefits of smoking cessation reviewed with [...] Sex Assigned at Female 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 Sex Female 5:58 PM CDT Gender Identity Not on file Sexual Orientation Not on file documented as of this encounter Progress Notes * SYBIL Carranza - 07/27/2023 4:50 PM CDT yes documented in this encounter Plan of Treatment Upcoming Encounters Date Type Department Care Team (Late st Contact Info) Description 03/28/2025 2:40 PM CDT Office Visit [facility] [address] [address] Iam Ramirez MD [address] [place] [address] documented as of this encounter Visit Diagnoses Not on filedocumented in this encounter Additional Health Concerns Assessment Noted Time PHQ-9 Depression Total Score: 0 02/25/20 23 10:23 AM CDT documented as of this encounter Care Teams Dialysis Nurse Relationship Specialty Start Date End Date Merle Raymundo FNP [address] [place] [id number] PCP - General Nurse Practitioner Family 04/16/19 documented as of this encounter
--- OUTSIDE RECORDS SUMMARY | 2025-03-11 14:02 | XMS_ITS | Encounter Summary ---
Author Organization [facility] Address 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
--- OUTSIDE RECORDS SUMMARY | 2025-03-11 14:02 | XMS_ITS | Encounter Summary ---
Author Organization [facility] Address 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
== END 2025-03-11 13:44 | disposition home or self-care (01) ==
PROVIDERS: PCP Nurse Practitioner Family; Visit Provider Nurse Practitioner Family
DX: Z12.31 Encounter for screening mammogram for malignant neoplasm of breast (principal)
CPT/HCPCS: 77063; 77067

== ENCOUNTER 2025-04-02 09:02 | Outpatient (CLI) | payer BC, SELFPAY ==
--- NOTE | ~2025-04-02 | MR_ITS ---
MRI of the cervical spine Clinical History: Facet joint syndrome Technique: Axial T2-weighted and gradient images, and sagittal T1-weighted, T2-weighted, and STIR julian ges were acquired. Findings: No acute fracture seen. There is 3 mm anterolisthesis of C4 over C5. No suspicious bone mar row signal abnormality seen. At C2-C3, there is no disc bulge or herniation. There is mild facet arthropathy. No central canal herbert nosis, cord compression, or neural foraminal narrowing. At C3-C4, there is no disc bulge or herniation. There is bilateral facet arthropathy. No spinal canal stenosis, cord compression, or neural foraminal narrowing. At C4-C5, there is minimal disc osteophyte complex with bilateral facet arthropathy. Probable mild ri ght neural foraminal narrowing. Left neural foramen preserved. No canal stenosis or cord compression. At C5-C6, there is severe degenerative disc change, with mild disc osteophyte complex. No definite ca nal stenosis or cord compression. There is bilateral neural foraminal narrowing, left worse than righ t. At C6-C7, there is severe degenerative disc change. There is minimal disc bulge. No spinal canal sten osis or cord compression. There is probable bilateral neural foraminal narrowing. No abnormal signal seen in the spinal cord. Paravertebral soft tissues are unremarkable. Impression: Moderate degenerative spondylosis at C5-C6 and C6-C7, as detailed above. 3 mm anterolisthesis of C4 over C5. Reviewed, dictated and finalized at [facility]. Impression: Moderate degenerative spondylosis at C5-C6 and C6-C7, as detailed above. 3 mm anterolisthesis of C4 over C5.
--- NOTE | ~2025-04-02 | MR_ITS ---
MRI of the thoracic spine Clinical History: Pain Technique: Axial T2-weighted and gradient images, and sagittal T1-weighted, T2-weighted, and STIR julian ges were acquired. Findings: There is posterior fusion from T11 through S1. There is extensive reactive marrow edema in the T9 and T10 vertebral bodies, likely reactive due to severe degenerative disc disease at the T9-T1 0 and T10-T11 levels. There is mild loss of height of T10, likely chronic. Remainder of the thoracic spine osseous structures are intact. There is disc osteophyte complex at T9-T10 with facet arthropathy. There is minimal central canal herbert nosis without stephan cord compression. There is severe bilateral neural foraminal narrowing at this le karan. At T10-T11, there is minimal disc bulge. No spinal canal stenosis or cord compression. There is mild to moderate neural foraminal narrowing bilaterally at this level. No other areas of canal stenosis or cord compression in the thoracic spine. Remaining neural foramina are preserved. Paravertebral soft tissues are otherwise unremarkable. Impression: Severe degenerative spondylitic changes at T9-T10 and T10-T11, as detailed above. Mild compression deformity of T10, likely chronic. Posterior fusion from T11 through S1. Reviewed, dictated and finalized at [facility]. Impression: Severe degenerative spondylitic changes at T9-T10 and T10-T11, as detailed abov e. Mild compression deformity of T10, likely chronic. Posterior fusion from T11 through S1.
--- NOTE | ~2025-04-02 | MR_ITS ---
MRI of the lumbar spine Clinical History: Pain Technique: Axial T2-weighted images, and sagittal T1-weighted, T2-weighted, and STIR images were acqu ired. Findings: There is posterior fusion from T11 through S1. There is chronic compression deformity of T1 1. No fracture or subluxation seen in the more spine. Disc fusion cages are also present at the L4-L5 and L5-S1 levels. Remaining disc spaces are relatively well-preserved. No disc bulge or herniation identified at any lumbar level. There is extensive probable prior posteri or decompression of the lumbar spine. No spinal canal stenosis identified in the lumbar spine. No def inite neural foraminal narrowing seen. Paravertebral soft tissues are unremarkable, aside from expected postoperative change. Impression: Extensive posterior fusion from T11 through S1 with interbody fusion at L4-L5 and L5-S1. Probable ext ensive prior posterior decompression of the lumbar spine. No canal stenosis or cord compression. Mild chronic compression deformity of T11. Reviewed, dictated and finalized at [facility]. Impression: Extensive posterior fusion from T11 through S1 with interbody fusion at L4-L5 a nd L5-S1. Probable extensive prior posterior decompression of the lumbar spine. No canal stenosis or cord compression. Mild chronic compression deformity of T11.
== END 2025-04-02 09:03 | disposition home or self-care (01) ==
PROVIDERS: PCP Nurse Practitioner Family; Visit Provider Nurse Practitioner Family
DX: M47.894 Other spondylosis, thoracic region (principal); S22.080A Wedge compression fracture of T11-T12 vertebra, initial encounter for closed fracture; X58.XXXA Exposure to other specified factors, initial encounter; M47.812 Spondylosis without myelopathy or radiculopathy, cervical region; G89.29 Other chronic pain; M96.1 Postlaminectomy syndrome, not elsewhere classified; Q76.49 Other congenital malformations of spine, not associated with scoliosis
CPT/HCPCS: 72141; 72146; 72148